=== PATIENT | female | born 1940 | race Caucasian/White ===

== ENCOUNTER 2017-01-31 15:10 | Emergency (ER) | payer BC ==
--- NOTE | 2017-01-31 17:55 | PDOC ---
History of Present Illness - General Chief Complaint: Diarrhea Stated Complaint: DIARRHEA & ABDOMINAL PAIN Time Seen by Provider: 01/31/17 17:01 History Source: Patient, Family Exam Limitations: No Limitations - History of Present Illness Initial Comments: 01/31/17 17:52 Chief complaint: Diarrhea, now resolved I went to see the patient, and she states she had some diarrhea today. She states her symptoms have fully resolved. She had abdominal cramps earlier today which have now gone away. She asked me to cancel her visit. She does not want to be seen or examined. Patient left the ED feeling well, stating she did not feel she needed to be seen and that she would return if she develops any symptoms. No examination or further evaluation performed per patient request. Past History - Past Medical History Allergies/Adverse Reactions: Allergies Allergy/AdvReac Type Severity Reaction Status Date / Time ciprofloxacin [From Cipro] Allergy Severe Rash Verified 04/28/16 06:55 ciprofloxacin HCl Allergy Severe Rash Verified 04/28/16 06:55 [From Cipro] midazolam HCl [From Versed] AdvReac Severe Nausea Verified 04/28/16 06:55 Home Medications: Ambulatory Orders Aspirin [ASA -] 81 mg PO DAILY 04/28/16 Atorvastatin Ca [Lipitor] 10 mg PO HS 04/28/16 Levothyroxine [Synthroid -] 75 mcg PO DAILY 04/28/16 Ondansetron [Zofran Odt -] 4 mg GT TID PRN #14 tab.rapdis 04/28/16 Anemia: No Asthma: Yes Cancer: No Cardiac Disorders: Yes ([place] 1995 "NO HEART DAMAGE") CVA: No COPD: No CHF: No Dementia: No Diabetes: No GI Disorders: Yes (GERD) Disorders: No HTN: No Hypercholesterolemia: Yes Kidney Stones: Yes Liver Disease: (LFT'S ELEVATED DUE TO CRESTOR (PT HOSPITALIZED 12/2011) CRESTOR STOPPED) Suicide Attempt (Hx): No Seizures: No Thyroid Disease: Yes (HYPOTHROIDISM) - Surgical History Abdominal Surgery: Yes Appendectomy: No Cardiac Surgery: Yes (ANGIOPLASTY 1997) Cholecystectomy: Yes () Lung Surgery: No Neurologic Surgery: No Orthopedic Surgery: No - Immunization History Td Vaccination: (UNKNOWN) - Psycho/Social/Smoking Cessation Hx Anxiety: No Suicidal Ideation: No Smoking Status: Yes Smoking History: Former smoker Years of Tobacco Use: 50 Have you smoked in the past 12 months: No Number of Cigarettes Smoked Daily: 0 If you are a former smoker, when did you quit?: 20 YEARS Hx Alcohol Use: No Drug/Substance Use Hx: No Substance Use Type: None Hx Substance Use Treatment: No *DC/Admit/Observation/Transfer Diagnosis at time of Disposition: Care refused by patient Abdominal pain Qualifiers: Abdominal location: unspecified location Qualified Code(s): R10.9 - Unspecified abdominal pain - Discharge Dispostion Disposition: LEFT BEFORE [facility] MOHAMUD Condition at time of disposition: Good
== END 2017-01-31 17:05 | disposition left against medical advice (07) ==
LOC: FER 15:10
DX: Z53.20 Procedure and treatment not carried out because of patient's decision for unspecified reasons (principal); R10.9 Unspecified abdominal pain; K21.9 Gastro-esophageal reflux disease without esophagitis; J45.909 Unspecified asthma, uncomplicated; E78.00 Pure hypercholesterolemia, unspecified; E03.9 Hypothyroidism, unspecified; R79.9 Abnormal finding of blood chemistry, unspecified; Z87.891 Personal history of nicotine dependence
CPT/HCPCS: 99281-25

== ENCOUNTER 2017-03-24 07:32 | Emergency (ER) | payer BC ==
[2017-03-24] MEDS ORDERED: SODIUM CHLORIDE 0.9% 1000 ML INFUS.BAG IV ONE (07:39)
[2017-03-24] MEDS ORDERED: ONDANSETRON 4 MG/2 ML VIAL IVPUSH ONE (07:39)
[2017-03-24] MEDS ORDERED: ONDANSETRON 4 MG/2 ML VIAL ONE (07:41)
--- NOTE | 2017-03-24 07:41 | PDOC ---
History of Present Illness - General Chief Complaint: Weakness Stated Complaint: NAUSEA,DIARRHEA Time Seen by Provider: 03/24/17 07:36 History Source: Patient Exam Limitations: No Limitations - History of Present Illness Initial Comments: 03/24/17 07:40 76 yo F with h/o HTN CAD here wtih c/o n/v/d. pt states has happened to her several months ago but was never seen. no new foods. no recent abx or travel. no mod fators. no sick contacts. c/o feeling generalized weakness. no fever does report chills. no vomiting but severe nausea. denies vertigo or lightheadedness. has had 3 water bm's today. nonbloody. took immodium mild improvement. has had cough for 2 months. has h/o allergies, and wheezin in past uses proair and advair at home. 03/24/17 07:45 Past History - Past Medical History Allergies/Adverse Reactions: Allergies Allergy/AdvReac Type Severity Reaction Status Date / Time ciprofloxacin [From Cipro] Allergy Severe Rash Verified 03/24/17 07:35 ciprofloxacin HCl Allergy Severe Rash Verified 03/24/17 07:35 [From Cipro] midazolam HCl [From Versed] AdvReac Severe Nausea Verified 03/24/17 07:35 Home Medications: Ambulatory Orders Aspirin [ASA -] 81 mg PO DAILY 04/28/16 Atorvastatin Ca [Lipitor] 10 mg PO HS 04/28/16 Levothyroxine [Synthroid -] 75 mcg PO DAILY 04/28/16 Albuterol 0.083% Nebulizer Rukhsana [Ventolin 0.083% Nebulizer Soln -] 1 amp NEB Q4H PRN #1 box 03/24/17 Albuterol Sulfate [Proair Respiclick] 90 mcg IH DAILY 03/24/17 Anemia: No Asthma: Yes Cancer: No Cardiac Disorders: Yes ([place] 1995 "NO HEART DAMAGE") CVA: No COPD: No CHF: No Dementia: No Diabetes: No GI Disorders: Yes (GERD) Disorders: No HTN: No Hypercholesterolemia: Yes Kidney Stones: Yes Liver Disease: (LFT'S ELEVATED DUE TO CRESTOR (PT HOSPITALIZED 12/2011) CRESTOR STOPPED) Suicide Attempt (Hx): No Seizures: No Thyroid Disease: Yes (HYPOTHROIDISM) - Surgical History Abdominal Surgery: Yes Appendectomy: No Cardiac Surgery: Yes (ANGIOPLASTY 1997) Cholecystectomy: Yes () Lung Surgery: No Neurologic Surgery: No Orthopedic Surgery: No - Immunization History Td Vaccination: (UNKNOWN) - Psycho/Social/Smoking Cessation Hx Anxiety: No Suicidal Ideation: No Smoking Status: Yes Smoking History: Former smoker Years of Tobacco Use: 50 Have you smoked in the past 12 months: No Number of Cigarettes Smoked Daily: 0 If you are a former smoker, when did you quit?: 20 YEARS Hx Alcohol Use: No Drug/Substance Use Hx: No Substance Use Type: None Hx Substance Use Treatment: No Review of Systems - Review of Systems Constitutional: Yes: Chills. No: Diaphoresis, Weight Stable Respiratory: Yes: Other (cough). No: Orthopnea, Productive cough Cardiac (ROS): No: Chest Pain, Edema, Irregular Heart Rate ABD/GI: Yes: Diarrhea, Nausea. No: Vomiting : No: Burning, Dysuria Neurological: Yes: Weakness. No: Numbness All Other Systems: Reviewed and Negative *Physical Exam - Physical Exam General Appearance: Yes: Nourished, Appropriately Dressed Neck: positive: Trachea midline Respiratory/Chest: positive: Normal Breath Sounds, Wheezing (faint right lung base with expiratory wheezing). negative: Chest Tender, Respiratory Distress Cardiovascular: positive: Regular Rhythm, Regular Rate, S1, S2. negative: Edema , Murmur Gastrointestinal/Abdominal: positive: Normal Bowel Sounds, Flat, Soft. negative : Tender Musculoskeletal: negative: CVA Tenderness Extremity: positive: Normal Capillary Refill Integumentary: positive: Normal Color, Dry, Warm Neurologic: positive: Fully Oriented, Alert, Normal Mood/Affect, Motor Strength 5/5 ED Treatment Course - LABORATORY CBC & Chemistry Diagram: 03/24/17 07:40 03/24/17 07:40 Medical Decision Making - Medical Decision Making 03/24/17 07:48 76 yo F with h/o CAD, HTN HLD, asthma here wtih cough x 2 months, no 24 hours nausea and diarreha. nontender exam. denies vertigo. differential pna, mass, viral ge, food intolerance. electrolyte abnormality, pancreatitis, dehydration. plan labs lipase cxr antiemetics ivf. reassess. 03/24/17 09:01 pt electrolytes normal. noted to elevated elevated wbc 20. pt states she had elevated wbc onm recent blood work as well. afebrile. feeling improved after medication fluid and neb. cxr normal. will leave message for dr haddad [phone] to discuss plan of care and followup. pt refereed to GI for outpt followup. tolerating po dc home. *DC/Admit/Observation/Transfer Diagnosis at time of Disposition: Gastroenteritis - Discharge Dispostion Disposition: HOME Condition at time of disposition: Stable Admit: No - Prescriptions Prescriptions: Albuterol 0.083% Nebulizer Rukhsana [Ventolin 0.083% Nebulizer Soln -] 1 amp NEB Q4H PRN #1 box PRN Reason: Wheezing - Referrals Referrals: Andrea Sheldon MD [Primary Care Provider] - Juan Sanchez MD [Staff Physician] - - Patient Instructions Printed Discharge Instructions: Viral Gastroenteritis, Asthma -- Adult Additional Instructions: you should take bland foods and plenty of liquids. follow up with a diabetes trainer. see referral number for Dr Sanchez ( gatroenterologist) or you can gain a referral from your primary doctor. you should follow up with DR. Lucio within one week. call to schedule. return for any fever, persistant vomiting or any concerns. your white blood cell count was elevated today at 20. you will need to have it repeated in 1 - 2 weeks to see that it comes down when you are feeling better. see copies of labs attached, and bring to your doctor at your next appointment. use albuterol inhaled every 4 hours as needed for wheezing.
[2017-03-24 07:54] LABS: MCH 28.8 pg (25.7-33.7); MEAN CELL VOLUME 84.6 fl (80-96); MEAN PLT VOLUME 7.7 fl (7.5-11.1); PLATELET COUNT 304 K/MM3 (134-434); RDW 12.8 % (11.6-15.6); WHITE BLOOD COUNT 20.7 K/mm3 (4.0-10.8)
[2017-03-24 07:56] VITALS: BP 109/74; PULSE 88; BMI 20.5
[2017-03-24 07:59] VITALS: TEMP 98.7
[2017-03-24] MEDS ORDERED: ALBUTEROL SO4 2.5/IPRATROPIUM 0.5 INH SOL 3 ML VIAL.NEB. NEB ONE ×2 (08:08→08:09)
[2017-03-24 08:45] LABS: ALK PHOS 81 U/L (32-92); ANION GAP 9 (8-16); BILIRUBIN,TOTAL 0.9 mg/dl (0.2-1.0); CALCIUM 9.4 mg/dl (8.4-10.2); CO2 24 mmol/L (22-28); CREATININE 0.7 mg/dl (0.6-1.3); GLUCOSE,RANDOM 133 mg/dl (74-106); SGOT/AST 30 U/L (10-42); SGPT/ALT 21 U/L (10-40); TOT PROT 6.1 g/dl (6.4-8.3)
[2017-03-24] MEDS ORDERED: FAMOTIDINE 20 MG/50 ML IVPB 50 ML IVPB ONE ×2 (09:00→09:01)
[2017-03-24] MEDS ORDERED: MAG HYDROX/AL HYDROX/SIMETH 30 ML UNIT-DOSE CUP PO ONE (09:00)
[2017-03-24] MEDS ORDERED: MAG HYDROX/AL HYDROX/SIMETH 30 ML UNIT-DOSE CUP ONE (09:01)
[2017-03-24 09:22] LABS: PLATELET ESTIMATE ADEQUATE (NORMAL)
== END 2017-03-24 09:34 | disposition home or self-care (01) ==
LOC: FER 07:32
PROC: 3E0F7GC Introduction of Other Therapeutic Substance into Respiratory Tract, Via Natural or Artificial Opening (ICD-10-PCS; principal; 2017-03-24)
PROC: 3E033GC Introduction of Other Therapeutic Substance into Peripheral Vein, Percutaneous Approach (ICD-10-PCS; 2017-03-24)
PROC: 3E0337Z Introduction of Electrolytic and Water Balance Substance into Peripheral Vein, Percutaneous Approach (ICD-10-PCS; 2017-03-24)
DX: K52.9 Noninfective gastroenteritis and colitis, unspecified (principal); I10 Essential (primary) hypertension; E78.5 Hyperlipidemia, unspecified; I25.10 Atherosclerotic heart disease of native coronary artery without angina pectoris
CPT/HCPCS: 36415; 71020-TC; 80053; 83690; 85025; 94640; 96365; 96375; 99282-25

== ENCOUNTER 2017-03-24 10:26 | Emergency (ER) | payer BC ==
[2017-03-24] MEDS ORDERED: ONDANSETRON 4 MG/2 ML VIAL IVPUSH ONE (10:37)
[2017-03-24] MEDS ORDERED: ONDANSETRON 4 MG/2 ML VIAL ONE ×2 (10:40→10:48)
[2017-03-24 10:59] VITALS: BP 105/57; PULSE 66; TEMP 98.6; BMI 20.5
[2017-03-24 13:38] LABS: PH,URINE 5.5 (4.5-8); URINE APPEARANCE Clear; URINE BILIRUBIN Negative (NEGATIVE); URINE GLUCOSE (UA) Negative (NEGATIVE); URINE KETONE Negative (NEGATIVE); URINE LEUK ESTERASE Negative (NEGATIVE); URINE NITRITE Negative (NEGATIVE); URINE PROTEIN Negative (NEGATIVE); URINE UROBILINOGEN 0.2 (0.2-1.0)
[2017-03-24 13:39] LABS: URINE BLOOD Trace-lysed (NEGATIVE); URINE COLOR YELLOW
[2017-03-24 13:41] LABS: URINE RBC 0-3 /hpf (0-3); URINE WBC 0-3 (3-5)
[2017-03-24 13:42] LABS: URINE BACTERIA FEW /hpf (NEGATIVE)
--- NOTE | 2017-03-24 15:02 | PDOC ---
History of Present Illness - General Chief Complaint: Nausea Stated Complaint: NAUSEA Time Seen by Provider: 03/24/17 10:34 History Source: Patient Exam Limitations: No Limitations - History of Present Illness Initial Comments: 03/24/17 14:57 76 yo F with h/o HTN asthma , here with c/o persistant nausea and loose stool mild abd cramping. pt was seen earlier today by myself. evaluated with cbc lytes and lipase which were normal. given iv hydration, zofran and felt great req to be dc. now returning with lower abd cramping which returned when she got home. no vomiting. no fever. no urinary comlaints. h/o cholecystectomy. no sick contacts. no recent abx. no recent travel. all loose watery stool nonbloody. 03/24/17 14:59 Past History - Past Medical History Allergies/Adverse Reactions: Allergies Allergy/AdvReac Type Severity Reaction Status Date / Time ciprofloxacin [From Cipro] Allergy Severe Rash Verified 03/24/17 10:27 ciprofloxacin HCl Allergy Severe Rash Verified 03/24/17 10:27 [From Cipro] midazolam HCl [From Versed] AdvReac Severe Nausea Verified 03/24/17 10:27 Home Medications: Ambulatory Orders Aspirin [ASA -] 81 mg PO DAILY 04/28/16 Atorvastatin Ca [Lipitor] 10 mg PO HS 04/28/16 Levothyroxine [Synthroid -] 75 mcg PO DAILY 04/28/16 Albuterol 0.083% Nebulizer Rukhsana [Ventolin 0.083% Nebulizer Soln -] 1 amp NEB Q4H PRN #1 box 03/24/17 Albuterol Sulfate [Proair Respiclick] 90 mcg IH DAILY 03/24/17 Ondansetron [Zofran *Odt*] 8 mg SL TID PRN #10 od.tablet 03/24/17 Anemia: No Asthma: Yes Cancer: No Cardiac Disorders: Yes ([place] 1995 "NO HEART DAMAGE") CVA: No COPD: No CHF: No Dementia: No Diabetes: No GI Disorders: Yes (GERD) Disorders: No HTN: No Hypercholesterolemia: Yes Kidney Stones: Yes Liver Disease: (LFT'S ELEVATED DUE TO CRESTOR (PT HOSPITALIZED 12/2011) CRESTOR STOPPED) Suicide Attempt (Hx): No Seizures: No Thyroid Disease: Yes (HYPOTHROIDISM) - Surgical History Abdominal Surgery: Yes Appendectomy: No Cardiac Surgery: Yes (ANGIOPLASTY 1997) Cholecystectomy: Yes () Lung Surgery: No Neurologic Surgery: No Orthopedic Surgery: No - Immunization History Td Vaccination: (UNKNOWN) - Psycho/Social/Smoking Cessation Hx Anxiety: No Suicidal Ideation: No Smoking Status: Yes Smoking History: Former smoker Years of Tobacco Use: 50 Have you smoked in the past 12 months: No Number of Cigarettes Smoked Daily: 0 If you are a former smoker, when did you quit?: 20 YEARS Information on smoking cessation initiated: No Hx Alcohol Use: No Drug/Substance Use Hx: No Substance Use Type: None Hx Substance Use Treatment: No Review of Systems - Review of Systems Constitutional: No: Chills, Diaphoresis, Fever HEENTM: No: Blurred Vision Respiratory: No: Cough, Orthopnea Cardiac (ROS): No: Chest Pain, Edema ABD/GI: Yes: Diarrhea, Nausea, Indigestion, Abdominal cramping Musculoskeletal: No: Back Pain, Gout, Joint Pain Integumentary: No: Bruising, Change in Color All Other Systems: Reviewed and Negative *Physical Exam - Vital Signs Last Vital Signs Temp Pulse Resp BP Pulse Ox 98.6 F 66 20 105/57 92 L 03/24/17 10:27 03/24/17 10:27 03/24/17 10:27 03/24/17 10:27 03/24/17 10:27 - Physical Exam General Appearance: Yes: Nourished, Appropriately Dressed Neck: positive: Trachea midline Respiratory/Chest: positive: Lungs Clear, Normal Breath Sounds. negative: Chest Tender Cardiovascular: positive: Regular Rhythm, Regular Rate, S1, S2 Gastrointestinal/Abdominal: positive: Normal Bowel Sounds, Flat, Soft. negative : Tender Musculoskeletal: positive: Normal Inspection. negative: CVA Tenderness Extremity: positive: Normal Capillary Refill Integumentary: positive: Normal Color, Dry, Warm ED Treatment Course - ADDITIONAL ORDERS Additional order review: Laboratory Results 03/24/17 13:22 Urine Color Yellow Urine Appearance Clear Urine pH 5.5 Ur Specific [place] <= 1.005 Urine Protein Negative Urine Glucose (UA) Negative Urine Ketones Negative Urine Blood Trace-lysed H Urine Nitrite Negative Urine Bilirubin Negative Urine Urobilinogen 0.2 Ur Leukocyte Esterase Negative Urine RBC 0-3 Urine WBC 0-3 Ur Epithelial Cells Few Urine Bacteria Few - RADIOLOGY Radiology Studies Ordered: Category Date Time Status ABDOMEN & PELVIS CT WITH CONTR [CT] Stat CT Scan 03/24/17 10:36 Completed - Medications Given in the ED: ED Medications Discontinued Medications Generic Name Dose Route Start Last Admin Trade Name Freq PRN Reason Stop Dose Admin Ondansetron HCl 4 mg 03/24/17 10:37 03/24/17 10:55 Zofran Injection IVPUSH 03/24/17 10:38 4 mg ONCE ONE Administration Medical Decision Making - Medical Decision Making 03/24/17 15:00 76 yo F with nausea and diarreha, here for repeat visit. last eval earlier today noted wbc 20 pt states h/o leukocytosis on last routine blood work by her doctor. will obtain ct r/o colitis, or diverticulitis. 03/24/17 15:[address] negative. pt requesting to leave feels better. given rx for zofran. given referral fir gi and new internest per her request. *DC/Admit/Observation/Transfer Diagnosis at time of Disposition: Colitis - Discharge Dispostion Disposition: HOME Condition at time of disposition: Improved - Prescriptions Prescriptions: Ondansetron [Zofran *Odt*] 8 mg SL TID PRN #10 od.tablet PRN Reason: Nausea - Referrals Referrals: Carmina Schmidt MD [Staff Physician] - Juan Sanchez MD [Staff Physician] - - Patient Instructions Printed Discharge Instructions: Viral Gastroenteritis Additional Instructions: you can take zofran 8 mg every 6 hours as needed for nausea. return for severe or worsening pain, vomiting, fever or any concerns. your ct scan today is unremarkable. see copy of report attached. take all copies of blood work and ct scan to your doctor at your followup. you should followup with your primary doctor withone one week. you should also see a diorama model maker. see referral information for Dr Sanchez ( GI ) call number to schedule.
== END 2017-03-24 15:12 | disposition home or self-care (01) ==
LOC: FER 10:26
PROC: 3E033GC Introduction of Other Therapeutic Substance into Peripheral Vein, Percutaneous Approach (ICD-10-PCS; principal; 2017-03-24)
DX: K52.9 Noninfective gastroenteritis and colitis, unspecified (principal)
CPT/HCPCS: 74177-TC; 81003; 81015; 96374; 99282-25

== ENCOUNTER 2017-07-29 18:10 | Emergency (ER) | payer BC ==
[2017-07-29 18:20] VITALS: BP 140/85; PULSE 64; TEMP 98.1; BMI 23.6
--- NOTE | 2017-07-29 18:24 | PDOC ---
History of Present Illness - General History Source: Patient Exam Limitations: No Limitations - History of Present Illness Initial Comments: 07/29/17 18:47 The patient is a year old female, with a significant past medical history of HTN , CAD, AL, and asthma on aspirin, who presents to the emergency department s/p mechanical fall with a bruise on her left elbow. Secondary to her fall she reports swelling to her left elbow. She denies trauma to her head and neck. She denies recent fevers, chills, headache or dizziness. She denies recent nausea, vomit, diarrhea or constipation. She denies recent dysuria, frequency, urgency or hematuria. She denies recent chest pain or shortness of breath. Allergies: Ciprofloxacin, Ciprofloxacin HCl, midazolam HCl . Social history: Nonsmoker. Denies EtOH use and recreational drug use. <Andrez Delacruz - Last Filed: 07/29/17 18:48> <Anuj Solorzano - Last Filed: 07/30/17 08:07> - General Chief Complaint: Injury Stated Complaint: FALL, LEFT ELBOW SWELLING Time Seen by Provider: 07/29/17 18:24 Past History <Andrez Delacruz - Last Filed: 07/29/17 18:48> - Past Medical History Anemia: No Asthma: Yes Cancer: No Cardiac Disorders: Yes ([place] 1995 "NO HEART DAMAGE") CVA: No COPD: No CHF: No Dementia: No Diabetes: No GI Disorders: Yes (GERD) Disorders: No HTN: No Hypercholesterolemia: Yes Kidney Stones: Yes Liver Disease: (LFT'S ELEVATED DUE TO CRESTOR (PT HOSPITALIZED 12/2011) CRESTOR STOPPED) Seizures: No Thyroid Disease: Yes (HYPOTHROIDISM) - Surgical History Abdominal Surgery: Yes Appendectomy: No Cardiac Surgery: Yes (ANGIOPLASTY 1997) Cholecystectomy: Yes () Lung Surgery: No Neurologic Surgery: No Orthopedic Surgery: No - Immunization History Td Vaccination: (UNKNOWN) - Suicide/Smoking/Psychosocial Hx Smoking Status: Yes Smoking History: Never smoked Years of Tobacco Use: 50 Have you smoked in the past 12 months: No Number of Cigarettes Smoked Daily: 0 If you are a former smoker, when did you quit?: 20 YEARS Information on smoking cessation initiated: No Hx Alcohol Use: No Drug/Substance Use Hx: No Substance Use Type: None Hx Substance Use Treatment: No <Anuj Solorzano - Last Filed: 07/30/17 08:07> - Past Medical History Allergies/Adverse Reactions: Allergies Allergy/AdvReac Type Severity Reaction Status Date / Time ciprofloxacin [From Cipro] Allergy Severe Rash Verified 07/29/17 18:11 ciprofloxacin HCl Allergy Severe Rash Verified 07/29/17 18:11 [From Cipro] midazolam HCl [From Versed] AdvReac Severe Nausea Verified 07/29/17 18:11 Home Medications: Ambulatory Orders Aspirin [ASA -] 81 mg PO DAILY 04/28/16 Atorvastatin Ca [Lipitor] 10 mg PO HS 04/28/16 Levothyroxine [Synthroid -] 75 mcg PO DAILY 04/28/16 Albuterol 0.083% Nebulizer Rukhsana [Ventolin 0.083% Nebulizer Soln -] 1 amp NEB Q4H PRN #1 box 03/24/17 Albuterol Sulfate [Proair Respiclick] 90 mcg IH DAILY 03/24/17 Review of Systems - Review of Systems Able to Perform ROS?: Yes Comments:: 07/29/17 18:48 CONSTITUTIONAL: Absent: fever, no chills, no fatigue EYES: Absent: visual changes ENT: Absent: ear pain, no sore throat CARDIOVASCULAR: Absent: chest pain, no palpitations RESPIRATORY: Absent: cough, no SOB GI: Absent: abdominal pain, no nausea, no vomiting, no constipation, no diarrhea GENITOURINARY: Absent: dysuria, no frequency, no hematuria MUSKULOSKELETAL: Absent: back pain, no arthralgia, no myalgia EXTREMITIES: Present: +Bruise and swelling of left elbow. SKIN: Absent: rash NEURO: Absent: headache All Other Systems: Reviewed and Negative <Andrez Delacruz - Last Filed: 07/29/17 18:48> *Physical Exam - Vital Signs Last Vital Signs Temp Pulse Resp BP Pulse Ox 98.1 F 64 20 140/85 95 07/29/17 18:11 07/29/17 18:11 07/29/17 18:11 07/29/17 18:11 07/29/17 18:11 <Andrez Delacruz - Last Filed: 07/29/17 18:48> - Vital Signs Last Vital Signs Temp Pulse Resp BP Pulse Ox 98.1 F 64 20 140/85 95 07/29/17 18:11 07/29/17 18:11 07/29/17 18:11 07/29/17 18:11 07/29/17 18:11 <Anuj Solorzano - Last Filed: 07/30/17 08:07> Medical Decision Making - Medical Decision Making 07/29/17 18:45 Patient tripped and fell on the steps, injuring her left elbow. No head or neck injury. No injury to the chest abdomen spine pelvis or other extremities. No loss of consciousness. Examination of the head and neck normal. Left elbow has a significant contusion and hematoma over the medial aspect of the olecranon process. However, there is no deformity suggestive of a fracture or dislocation. There is no effusion. There is full range of motion in flexion, extension, supination, and pronation. There are no distal sensory or motor deficits, and pulses are full. Probable contusion of the elbow, rule out fracture X-ray and further orthopedic treatment depending on results. X-ray is negative for fracture. There is no clinical sign of fracture as well. Symptomatic treatment with Jacky for compression, sling for rest, ice, Tylenol. Recheck orthopedist if pain or swelling persists. <Anuj Solorzano - Last Filed: 07/30/17 08:07> *DC/Admit/Observation/Transfer - Attestations Scribe Attestion: 07/29/17 18:48 Documentation prepared by Andrez Delacruz, acting as medical customer service representative for Anuj Scherer MD. <Andrez Delacruz - Last Filed: 07/29/17 18:48> - Discharge Dispostion Admit: No <Anuj Solorzano - Last Filed: 07/30/17 08:07> Diagnosis at time of Disposition: Contusion of left elbow Qualifiers: Encounter type: initial encounter Qualified Code(s): S50.02XA - Contusion of left elbow, initial encounter - Discharge Dispostion Disposition: HOME Condition at time of disposition: Improved - Referrals Referrals: Brian Barnhart MD [Staff Physician] - 1 week - Patient Instructions Printed Discharge Instructions: How to Use a Sling, Contusion Additional Instructions: Rest, ice, elevate, Tylenol for pain. Use the sling for 2-3 days, then begin gentle range of motion exercises and stretching See orthopedist if pain persists or other symptoms develop for recheck and further evaluation. - Post Discharge Activity Forms/Work/School Notes: Back to Work
== END 2017-07-29 19:08 | disposition home or self-care (01) ==
LOC: FER 18:10
DX: S50.02XA Contusion of left elbow, initial encounter (principal); W18.39XA Other fall on same level, initial encounter; Y93.89 Activity, other specified; Y92.9 Unspecified place or not applicable; I10 Essential (primary) hypertension; I25.10 Atherosclerotic heart disease of native coronary artery without angina pectoris; I25.2 Old myocardial infarction; J45.909 Unspecified asthma, uncomplicated; Z79.82 Long term (current) use of aspirin
CPT/HCPCS: 73070-TC-LT; 99282-25

== ENCOUNTER 2017-11-13 02:05 | Emergency (ER) | payer BC ==
[2017-11-13 02:16] VITALS: BP 129/81; PULSE 70; TEMP 97.7; BMI 22.8
--- NOTE | 2017-11-13 02:22 | PDOC ---
History of Present Illness - General Chief Complaint: Sore Throat Stated Complaint: SORE THROAT Time Seen by Provider: 11/13/17 02:19 History Source: Patient Exam Limitations: No Limitations - History of Present Illness Initial Comments: 11/13/17 02:22 This is a 77-year-old female who clinically completed with sore throat times since she woke up prior to coming in. Patient said she had a little bit of a sore throat when she went to bed otherwise denies any fever, chills, nausea, vomiting diarrhea. Patient denies any medical complaints. Patient said it is difficult to swallow secondary to the sore throat. PAST MEDICAL HISTORY: no significant history PAST SURGICAL HISTORY: no significant history FAMILY HISTORY: no pertinant history SOCIAL HISTORY: Pt lives with family and is employed. MEDICATIONS: reviewed ALLERGIES: As per nursing notes Review of Systems General: No fevers or chills, no weakness, no weight loss HEENT: No change in vision. + sore throat,. No ear pain CardioVascular: No chest pain or shortness of breath Respiratory:No cough, or wheezing. Gastrointestinal: no nausea, vomitting, diarrhea or constipation, No rectal bleeding Genitourinary: No dysuria, hematuria, or frequency Musculoskeletal: No joint or muscle pain or swelling Neurologic: No headache, vertigo, dizziness or loss of consciousness Psychiatric: nor depression Skin: No rashes or easy bruising Endocrine: no increased thirst or abnormal weight change Allergic: no skin or latex allergy All other systems reviewed and normal GENERAL: The patient is awake, alert, and fully oriented, in no acute distress. HEAD: Normal with no signs of trauma. THROAT: There is some mild erythema of the posterior oropharynx, there is no exudate. There is no submandibular lymph adenopathy. Neck is supple. EYES: Pupils equal, round and reactive to light, extraocular movements intact, sclera anicteric, conjunctiva clear. EXTREMITIES: Normal range of motion, no edema. NEUROLOGICAL: Normal speech, normal gait. grossly intact PSYCH: Normal mood, normal affect. SKIN: Warm, Dry, normal turgor, no rashes or lesions noted. Assessment and plan: This 77-year-old female came in with a sore throat. Patient had a rapid strep was negative. Patient discharged home will follow-up with her primary care doctor Past History - Past Medical History Allergies/Adverse Reactions: Allergies Allergy/AdvReac Type Severity Reaction Status Date / Time ciprofloxacin [From Cipro] Allergy Severe Rash Verified 07/29/17 18:11 ciprofloxacin HCl Allergy Severe Rash Verified 07/29/17 18:11 [From Cipro] midazolam HCl [From Versed] AdvReac Severe Nausea Verified 07/29/17 18:11 Home Medications: Ambulatory Orders Aspirin [ASA -] 81 mg PO DAILY 04/28/16 Atorvastatin Ca [Lipitor] 10 mg PO HS 04/28/16 Levothyroxine [Synthroid -] 75 mcg PO DAILY 04/28/16 Albuterol 0.083% Nebulizer Rukhsana [Ventolin 0.083% Nebulizer Soln -] 1 amp NEB Q4H PRN #1 box 03/24/17 Albuterol Sulfate [Proair Respiclick] 90 mcg IH DAILY 03/24/17 Anemia: No Asthma: Yes Cancer: No Cardiac Disorders: Yes (CT 1995 "NO HEART DAMAGE") CVA: No COPD: No CHF: No Dementia: No Diabetes: No GI Disorders: Yes (GERD) Disorders: No HTN: No Hypercholesterolemia: Yes Kidney Stones: Yes Liver Disease: (LFT'S ELEVATED DUE TO CRESTOR (PT HOSPITALIZED 12/2011) CRESTOR STOPPED) Seizures: No Thyroid Disease: Yes (HYPOTHROIDISM) - Surgical History Abdominal Surgery: Yes Appendectomy: No Cardiac Surgery: Yes (ANGIOPLASTY 1997) Cholecystectomy: Yes () Lung Surgery: No Neurologic Surgery: No Orthopedic Surgery: No - Immunization History Td Vaccination: (UNKNOWN) - Suicide/Smoking/Psychosocial Hx Smoking Status: Yes Smoking History: Never smoked Years of Tobacco Use: 50 Have you smoked in the past 12 months: No Number of Cigarettes Smoked Daily: 0 If you are a former smoker, when did you quit?: 20 YEARS Hx Alcohol Use: No Drug/Substance Use Hx: No Substance Use Type: None Hx Substance Use Treatment: No *Physical Exam - Vital Signs Last Vital Signs Temp Pulse Resp BP Pulse Ox 97.7 F 70 16 129/81 97 11/13/17 02:15 11/13/17 02:15 11/13/17 02:15 11/13/17 02:15 11/13/17 02:15 *DC/Admit/Observation/Transfer Diagnosis at time of Disposition: Pharyngitis - Discharge Dispostion Disposition: HOME Condition at time of disposition: Stable Admit: No - Referrals Referrals: Fader,Tom M, MD [Primary Care Provider] - - Patient Instructions Additional Instructions: Tylenol or Motrin as needed for pain. Return to the emergency department immediately with ANY new, persistent or worsening symptoms. Continue any medications as previously prescribed by your physician. You should follow up with your primary doctor as soon as possible regarding today's emergency department visit. . Please make sure your doctor reviews the results of your emergency evaluation. Thank you for coming to the Emergency Department today for your care. It was a pleasure to see you today. Please note that your evaluation is INCOMPLETE until you follow-up with your doctor. - Post Discharge Activity
== END 2017-11-13 03:46 | disposition home or self-care (01) ==
LOC: FER 02:05
DX: J02.9 Acute pharyngitis, unspecified (principal); Z87.891 Personal history of nicotine dependence; J45.909 Unspecified asthma, uncomplicated; I25.2 Old myocardial infarction; K21.9 Gastro-esophageal reflux disease without esophagitis; E03.9 Hypothyroidism, unspecified; E78.00 Pure hypercholesterolemia, unspecified; Z87.442 Personal history of urinary calculi
CPT/HCPCS: 87070; 87430; 99281-25

== ENCOUNTER 2017-12-23 18:17 | Emergency (ER) | payer BC ==
--- NOTE | 2017-12-23 18:36 | PDOC ---
History of Present Illness - History of Present Illness Initial Comments: 12/23/17 18:49 Physical exam: Alert oriented well-developed well-nourished no acute distress cheerful and cooperative. The patient is fully ambulatory without any pain or disturbance of gait. She can walk vigorously without any discomfort Right foot: There is significant swelling over the dorsum of the foot, distally. Primarily in the region of the second and third metatarsal heads. There is a mass that is palpable, minimally tender, but it blanches with pressure. It does not, however, appear to be fluctuant. There is minimal erythema but there is ecchymoses at the base of all 5 toes. There is no fifth metatarsal swelling or tenderness, no tenderness or deformity of the malleoli. However, there is mild swelling and edema below the lateral malleolus. No instability. Pulses full. No distal sensory or motor deficits. No posterior calf swelling or tenderness. No edema of the calf. <Anuj Solorzano - Last Filed: 12/23/17 18:49> - General History Source: Patient Exam Limitations: No Limitations - History of Present Illness Initial Comments: 12/23/17 18:54 The patient is a 77 year old female with a significant PMH of GERD, hypercholesterolemia, kidney stones, hypothyroidism, asthma, hypertension, CAD, [place], angioplasty(1997), and cholecystectomy(1979) who presents to the emergency department with a right foot injury for 6 days. The patient reports that she noticed swelling, redness and bruising to er right foot on thursday. She denies any pain , injury to site or difficulty ambulating. She denies any pain in her ankle calf or knee. 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 She denies any other symptoms. She denies and numbness, weakness or tinglilng sensation. She denies any fever, chills, nausea, vomit, diarrhea, constipation or urinary symptoms. She denies .chest pain, shortness of breath, headache and dizziness. The patient denies any other complaints. It is noted that the patient is a former smoker. She denies and drugs or alcohol. <Radha Cortez - Last Filed: 12/23/17 18:55> - General Chief Complaint: Injury Stated Complaint: RIGHT FOOT INJURY Time Seen by Provider: 12/23/17 18:35 Past History - Past Medical History Anemia: No Asthma: Yes Cancer: No Cardiac Disorders: Yes ([place] 1995 "NO HEART DAMAGE") CVA: No COPD: No CHF: No Dementia: No Diabetes: No GI Disorders: Yes (GERD) Disorders: No HTN: No Hypercholesterolemia: Yes Kidney Stones: Yes Liver Disease: (LFT'S ELEVATED DUE TO CRESTOR (PT HOSPITALIZED 12/2011) CRESTOR STOPPED) Seizures: No Thyroid Disease: Yes (HYPOTHROIDISM) - Surgical History Abdominal Surgery: Yes Appendectomy: No Cardiac Surgery: Yes (ANGIOPLASTY 1997) Cholecystectomy: Yes () Lung Surgery: No Neurologic Surgery: No Orthopedic Surgery: No - Immunization History Td Vaccination: (UNKNOWN) - Suicide/Smoking/Psychosocial Hx Smoking Status: Yes Smoking History: Never smoked Years of Tobacco Use: 50 Have you smoked in the past 12 months: No Number of Cigarettes Smoked Daily: 0 If you are a former smoker, when did you quit?: 20 YEARS Hx Alcohol Use: No Drug/Substance Use Hx: No Substance Use Type: None Hx Substance Use Treatment: No <Anuj Solozrano - Last Filed: 12/23/17 18:49> <Radha Cortez - Last Filed: 12/23/17 18:55> - Past Medical History Allergies/Adverse Reactions: Allergies Allergy/AdvReac Type Severity Reaction Status Date / Time ciprofloxacin [From Cipro] Allergy Severe Rash Verified 12/23/17 18:20 ciprofloxacin HCl Allergy Severe Rash Verified 12/23/17 18:20 [From Cipro] midazolam HCl [From Versed] AdvReac Severe Nausea Verified 12/23/17 18:20 Home Medications: Ambulatory Orders Aspirin [ASA -] 81 mg PO Q2D 04/28/16 Atorvastatin Ca [Lipitor] 10 mg PO HS 04/28/16 Levothyroxine [Synthroid -] 75 mcg PO DAILY 04/28/16 Albuterol 0.083% Nebulizer Rukhsana [Ventolin 0.083% Nebulizer Soln -] 1 amp NEB Q4H PRN #1 box 03/24/17 Albuterol Sulfate [Proair Respiclick] 90 mcg IH PRN 03/24/17 Fluticasone/Salmeterol [Advair 250-50 Diskus] 1 puff IN DAILY 12/23/17 Review of Systems - Review of Systems Able to Perform ROS?: Yes Comments:: 12/23/17 18:54 CONSTITUTIONAL: Absent: fever, chills, diaphoresis, generalized weakness, malaise, loss of appetite HEENT: Absent: rhinorrhea, nasal congestion, throat pain, throat swelling, difficulty swallowing, mouth swelling, ear pain, eye pain, visual Changes CARDIOVASCULAR: Absent: chest pain, syncope, palpitations, irregular heart rate, lightheadedness , peripheral edema RESPIRATORY: Absent: cough, shortness of breath, dyspnea with exertion, orthopnea, wheezing, stridor, hemoptysis GASTROINTESTINAL: Absent: abdominal pain, abdominal distension, nausea, vomiting, diarrhea, constipation, melena, hematochezia GENITOURINARY: Absent: dysuria, frequency, urgency, hesitancy, hematuria, flank pain, genital pain MUSCULOSKELETAL: (+)right foot swelling and bruising Absent: myalgia, arthralgia, joint swelling SKIN: Absent: rash, itching, pallor HEMATOLOGIC/IMMUNOLOGIC: Absent: easy bleeding, easy bruising, lymphadenopathy, frequent infections ENDOCRINE: Absent: unexplained weight gain, unexplained weight loss, heat intolerance, cold intolerance NEUROLOGIC: Absent: headache, focal weakness or paresthesias, dizziness, unsteady gait, seizure, mental status changes, bladder or bowel incontinence PSYCHIATRIC: Absent: anxiety, depression, suicidal or homicidal ideation, hallucinations. <Radha Cortez - Last Filed: 12/23/17 18:55> *Physical Exam - Vital Signs Last Vital Signs Temp Pulse Resp BP Pulse Ox 98.6 F 62 18 117/68 98 12/23/17 18:18 12/23/17 18:18 12/23/17 18:18 12/23/17 18:18 12/23/17 18:18 <Radha Cortez - Last Filed: 12/23/17 18:55> *DC/Admit/Observation/Transfer <Anuj Solorzano - Last Filed: 12/23/17 18:49> - Attestations Scribe Attestion: 12/23/17 18:55 Documentation prepared by Radha Cortez, acting as medical territory manager for Anuj Scherer MD. <Radha Cortez - Last Filed: 06/06/18 18:55> - Discharge Dispostion Condition at time of disposition: Stable
[2017-12-23 18:47] VITALS: BP 117/68; PULSE 62; TEMP 98.6; BMI 47.7
--- NOTE | 2017-12-23 19:38 | PDOC ---
*Physical Exam - Vital Signs Last Vital Signs Temp Pulse Resp BP Pulse Ox 98.6 F 62 18 117/68 98 12/23/17 18:18 12/23/17 18:18 12/23/17 18:18 12/23/17 18:18 12/23/17 18:18 Progress Note - Progress Note Progress Note: Care of this patient was transferred to me from Dr. Cummings at 1900 hrs. Evaluated this patient and asked me to follow up with the x-ray patient is to be discharged if there is no fracture and x-rays normal. X-ray does show some degenerative changes however no acute pathology Discussion with patient the patient has no pain is able to walk without difficulty however does have a swollen and ecchymosis of her foot. Patient has shoes that give hersupport and she has been on her feet for the last 2 days. Discussed with patient the importance of trying to elevate her foot get some shoes that give her better support and Jacky wrapping her foot we gave her an Jacky wrap here. Patient also takes 3 baby aspirin a day which most likely is also contributing to her swelling and ecchymosis *DC/Admit/Observation/Transfer Diagnosis at time of Disposition: Traumatic ecchymosis of right foot Qualifiers: Encounter type: initial encounter Qualified Code(s): S90.31XA - Contusion of right foot, initial encounter - Discharge Dispostion Disposition: HOME Condition at time of disposition: Stable Decision to Admit order: No - Referrals - Patient Instructions Additional Instructions: Wear the Jacky wrap especially when you are walking or working to give additional support since her shoes are not giving a very good support. Otherwise elevate the foot as much as U can and rest it. Return to the emergency department immediately with ANY new, persistent or worsening symptoms. Continue any medications as previously prescribed by your physician. You should follow up with your primary doctor as soon as possible regarding today's emergency department visit. . Please make sure your doctor reviews the results of your emergency evaluation. Thank you for coming to the Emergency Department today for your care. It was a pleasure to see you today. Please note that your evaluation is INCOMPLETE until you follow-up with your doctor. - Post Discharge Activity
== END 2017-12-23 19:46 | disposition home or self-care (01) ==
LOC: FER 18:17
DX: S90.31XA Contusion of right foot, initial encounter (principal); X58.XXXA Exposure to other specified factors, initial encounter; Y93.89 Activity, other specified; Y92.9 Unspecified place or not applicable; K21.9 Gastro-esophageal reflux disease without esophagitis; E78.00 Pure hypercholesterolemia, unspecified; E03.9 Hypothyroidism, unspecified; J45.909 Unspecified asthma, uncomplicated; I10 Essential (primary) hypertension; I25.2 Old myocardial infarction; Z87.891 Personal history of nicotine dependence
CPT/HCPCS: 73630-TC-RT-FY; 99281-25

== ENCOUNTER 2018-02-14 14:09 | Emergency (ER) | payer BC ==
--- NOTE | 2018-02-14 14:30 | PDOC ---
History of Present Illness - General Chief Complaint: Nausea Stated Complaint: NAUSEA WEAK LOOSE STOOL Time Seen by Provider: 02/14/18 14:30 History Source: Patient, Family (Eldest daughter present for interview) Exam Limitations: No Limitations - History of Present Illness Initial Comments: 77 y/o female presenting to ER complaining of weakness, dizziness, and malaise. Symptoms have been present since early December but acutely worse in the past two days. Additionally endorsing nausea, decreased appetite, decreased PO intake, loose stool, and generalized lower abdominal discomfort. Daughter present for interview reports pt has not been eating much in the past few weeks , and that her mother suffers from anxiety symptoms. Has experienced 2 falls in the past few weeks, reportedly mechanical in nature. On daily ASA. Denies fevers, chills, syncope, headache, vision changes, trouble swallowing, SOB, chest pain, symptoms, change in stool, orthopnea, paroxysmal nocturnal dyspnea, or extremity edema. H/o thyroid disease; managed medically; last TSH check was reportedly last week at PCPs office with normal results. Last TSH and T4 noted in EMR were resulted in Jul 2017 and were normal. Past History - Past Medical History Allergies/Adverse Reactions: Allergies Allergy/AdvReac Type Severity Reaction Status Date / Time ciprofloxacin HCl Allergy Severe Rash Verified 02/14/18 14:22 [From Cipro] midazolam HCl [From Versed] AdvReac Severe Nausea Verified 02/14/18 14:23 Home Medications: Ambulatory Orders Aspirin [ASA -] 81 mg PO Q2D 04/28/16 Atorvastatin Ca [Lipitor] 10 mg PO HS 04/28/16 Levothyroxine [Synthroid -] 75 mcg PO DAILY 04/28/16 Albuterol 0.083% Nebulizer Rukhsana [Ventolin 0.083% Nebulizer Soln -] 1 amp NEB Q4H PRN #1 box 03/24/17 Fluticasone/Salmeterol [Advair 250-50 Diskus] 1 puff IN DAILY 12/23/17 Enalapril Maleate 5 mg PO ONCE 01/04/18 Anemia: No Asthma: Yes Cancer: No Cardiac Disorders: Yes ([place] 1995 "NO HEART DAMAGE") CVA: No COPD: No CHF: No Dementia: No Diabetes: No GI Disorders: Yes (GERD) Disorders: No HTN: No Hypercholesterolemia: Yes Kidney Stones: Yes Liver Disease: (LFT'S ELEVATED DUE TO CRESTOR (PT HOSPITALIZED 12/2011) CRESTOR STOPPED) Seizures: No Thyroid Disease: Yes (HYPOTHROIDISM) Comment:: - GERD - Sigmoid diverticulosis without h/o diverticulitis - [place] in 1993 without residual deficits - HCL - H/o nephrolithiasis - Surgical History Abdominal Surgery: Yes Appendectomy: No Cardiac Surgery: Yes (ANGIOPLASTY 1997) Cholecystectomy: Yes () Lung Surgery: No Neurologic Surgery: No Orthopedic Surgery: No Comments:: - Cholecystectomy in the mid - Immunization History Td Vaccination: (UNKNOWN) - Suicide/Smoking/Psychosocial Hx Smoking Status: Yes Smoking History: Never smoked Years of Tobacco Use: 50 Have you smoked in the past 12 months: No Number of Cigarettes Smoked Daily: 0 If you are a former smoker, when did you quit?: 20 YEARS Hx Alcohol Use: No Drug/Substance Use Hx: No Substance Use Type: None Hx Substance Use Treatment: No Review of Systems - Review of Systems Able to Perform ROS?: Yes Is the patient limited Citizen Of [place] proficient: No Constitutional: Yes: Loss of Appetite, Malaise, Weakness. No: Chills, Diaphoresis, Fever HEENTM: No: Recent change in vision, Hearing Loss, Throat Pain Respiratory: Yes: Cough. No: Orthopnea, Shortness of Breath, Productive cough Cardiac (ROS): Yes: Lightheadedness. No: Chest Pain, Edema, Irregular Heart Rate, Palpitations, Syncope ABD/GI: Yes: Nausea, Poor Appetite, Poor Fluid Intake. No: Blood Streaked Bowels, Constipated, Diarrhea, Rectal Bleeding, Vomiting, Abdominal cramping, Tarry Stools : Yes: Frequency. No: Burning, Dysuria, Discharge, Flank Pain, Hematuria Musculoskeletal: No: Back Pain, Muscle Weakness Integumentary: Yes: Bruising. No: Rash Neurological: Yes: Dizziness. No: Headache, Numbness, Paresthesia, Weakness, Unsteady Gait Endocrine: No: Increased Thirst Hematologic/Lymphatic: No: Easy Bleeding, Easy Bruising *Physical Exam - Vital Signs 02/14/18 16:56 Vital Signs Temperature 98.5 F 02/14/18 14:11 Pulse Rate 64 02/14/18 14:11 Respiratory Rate 16 02/14/18 14:11 Blood Pressure 141/86 02/14/18 14:11 O2 Sat by Pulse Oximetry (%) 97 02/14/18 14:11 - Physical Exam Comments: Constitutional: Well-developed, well-nourished female in no acute distress. Found semi-fowlers in hospital bed. Alert and oriented x4. Answered all questions appropriately and completely. Speech was non-labored, non-pressured. HEENT: Normocephalic. No obvious external signs of trauma. Hearing grossly normal. No nasal discharge. No sinus tenderness. Oral cavity and pharynx normal. No inflammation, swelling, exudate, or lesions. Moist mucous membranes. Neck is supple, trachea is midline. No JVD. Cardiovascular: Borderline bradycardic rate and regular rhythm. No murmur, rubs , clicks, or gallops. Peripheral pulses: Radial pulses full. Respiratory: Infrequent cough. Equal chest rise and fall. Clear to auscultation bilaterally. No stridor, no wheezing, no rhonchi. Gastrointestinal: abdomen is soft, non-distended but tender in LLQ with guarding but no grimace, withdraw, or rebound. No pulsatile masses. No overlying skin lesions or obvious signs of trauma. Neuro: Alert and oriented. No focal deficits. Proximal and distal strength 5/5, retail services professional strength 5/5 - equal and symmetric. Plantar flexion and dorsiflexion 5/5. Intact sensation to all four extremities. Normal gait; ambulated without assistance into department. Psych: Affect: appropriate. Mood: normal. Skin: Warm, dry, and intact.No lesions. : No CVA tenderness. ED Treatment Course - LABORATORY CBC & Chemistry Diagram: 02/14/18 15:05 02/14/18 15:05 Medical Decision Making - Medical Decision Making *Reviewed nursing notes and prior visit documentation. 77 y/o female presenting with acutely worsening weakness, dizziness, and malaise with decreased PO intake and generalized lower abdominal discomfort. H/ o GERD and sigmoid diverticulosis. Afebrile. Vitals unremarkable, mildly hypertensive but appears to be normal trend per historical data. Concern for dehydration and malnutrition. Low suspicion for ACS. Low suspicion for UTI but pt does indorse increased frequency. Low suspicion for hypothyroidism given reportedly recent normal. Will obtain EKG, CBC, CMP, troponin, UA, and urinalysis. Ordered NS bolus for rehydration. EKG: Sinus bradycardia with ventricular rate of 59bpm. Possible left axis deviation. No ST segment elevation or depression. Unchanged from prior EKG dated 04 January 2018. CBC remarkable for elevated H/H; suspect likely secondary to dehydration. Small left shift. CMP unremarkable for electrolyte abnormality. Troponin not elevated. Will obtain CT of abdomen with IV contrast to further evaluate abdominal pain. 02/14/18 19:04 CXR unremarkable for acute cardiopulmonary process. Abdominal CT revealed mild hepatic steatosis and some aortic calcification. Diverticulosis without diverticulitis was noted. Pt reportedly feeling much better after IV rehydration. Continue to suspect the pt's symptoms are all secondary to poor PO intake over past few weeks. Discussed results and plan to discharge home with PCP follow up with patient and pt's sister. Both expressed verbal understanding and agreement. *DC/Admit/Observation/Transfer Diagnosis at time of Disposition: Dehydration Abdominal pain Qualifiers: Abdominal location: lower abdomen, unspecified Qualified Code(s): R10.30 - Lower abdominal pain, unspecified - Discharge Dispostion Disposition: HOME Condition at time of disposition: Improved Decision to Admit order: No - Referrals - Patient Instructions Printed Discharge Instructions: DI for Dehydration -- Adult Additional Instructions: Your laboratory / imaging results were negative for abnormalities or injuries. Your symptoms are likely because of your decreased appetite and food intake. Follow up with your primary care physician as needed. Continue taking your medications as prescribed. Return if worsening symptoms including fevers, headache, vomiting, visual or hearing disturbances, abdominal pain, chest pain, shortness of breath, syncope, dehydration, inability to take things by mouth, altered mental status, or worsening concerning symptoms. - Post Discharge Activity
[2018-02-14 14:34] VITALS: BMI 21.6
[2018-02-14] MEDS ORDERED: SODIUM CHLORIDE 0.9% 500 ML INFUS.BAG IV ONE (15:02)
[2018-02-14 15:21] LABS: URINE APPEARANCE Clear; URINE BILIRUBIN Negative (NEGATIVE); URINE COLOR Yellow; URINE GLUCOSE (UA) Negative (NEGATIVE); URINE KETONE Trace (NEGATIVE); URINE LEUK ESTERASE Negative (NEGATIVE); URINE NITRITE Negative (NEGATIVE); URINE PROTEIN Negative (NEGATIVE); URINE UROBILINOGEN 0.2 (0.2-1.0)
[2018-02-14 15:31] LABS: BASO % 0.1 % (0-2.0); EOS % 0.5 % (0-4.5); HEMATOCRIT 45.7 % (32.4-45.2); HEMOGLOBIN 15.4 GM/dl (10.7-15.3); LYMPH % 9.4 % (8-40); MCH 28.1 pg (25.7-33.7); MCHC 33.7 g/dl (32.0-36.0); MEAN CELL VOLUME 83.4 fl (80-96); MEAN PLT VOLUME 7.4 fl (7.5-11.1); MONO % 5.9 % (3.8-10.2); NEUT % 84.1 % (42.8-82.8); PLATELET COUNT 315 K/MM3 (134-434); RBC 5.47 M/mm3 (3.60-5.2); RDW 12.3 % (11.6-15.6); WHITE BLOOD COUNT 8.7 K/mm3 (4.0-10.8)
--- NOTE | 2018-02-14 15:35 | PDOC ---
Attending Attestation - Resident Resident Name: Kyle Lundberg - ED Attending Attestation I have performed the following: I have examined & evaluated the patient, The case was reviewed & discussed with the resident, I agree w/resident's findings & plan, Exceptions are as noted - HPI HPI: 77 yo F history diverticulosis, hypothyroid, HL, GERD presents with malaise, recent 7 lb weight loss, poor appetite, weakness, dizziness. She denies fevers, chills, sweats, cold intolerance. Denies chest pain, dysuria, SOB, abd pain, N/V /D. She states that her symptoms started with a week of nonproductive cough. Now with loose stools, not quite diarrhea. - Physicial Exam PE: GENERAL: Awake, alert, and fully oriented, in no acute distress HEAD: No signs of trauma EYES: PERRLA, EOMI, sclera anicteric, conjunctiva clear ENT: Auricles normal inspection, hearing grossly normal, nares patent, oropharynx clear without exudates. Dry mucosa NECK: Normal ROM, supple, no lymphadenopathy, JVD, or masses LUNGS: Breath sounds equal, clear to auscultation bilaterally. No wheezes, and no crackles HEART: Regular rate and rhythm, normal S1 and S2, no murmurs, rubs or gallops ABDOMEN: Soft, +mod LLQ tenderness, normoactive bowel sounds. No guarding, no rebound. No masses EXTREMITIES: Normal range of motion, no edema. No clubbing or cyanosis. No cords, erythema, or tenderness NEUROLOGICAL: Cranial nerves II through XII grossly intact. Normal speech, normal gait SKIN: Warm, Dry, normal turgor, no rashes or lesions noted. - Medical Decision Making Pt presents with nonspecific symptoms aside from weakness, cough, poor appetite. Obtained CBC, CMP, trop, UA, CXR- no significant abnormalities. Will obtain CT a/p to r/o diverticulitis. If neg, will DC home with PMD f/u, as she may require additional workup. Heart Score/ECG Review - ECG Impressions Comment:: EKG read 15:35- Sinus rosemary 59 bpm, no acute ST/T changes
[2018-02-14 15:39] LABS: ALBUMIN 4.2 g/dl (3.5-5.0); ALK PHOS 84 U/L (32-92); ANION GAP 8 (8-16); BILIRUBIN,TOTAL 0.5 mg/dl (0.2-1.0); BLOOD UREA NITROGEN 17 mg/dl (7-18); CALCIUM 9.9 mg/dl (8.4-10.2); CHLORIDE 100 mmol/L (98-107); CO2 28 mmol/L (22-28); CREATININE 0.7 mg/dl (0.6-1.3); GLUCOSE,RANDOM 107 mg/dl (74-106); POTASSIUM 3.7 mmol/L (3.5-5.1); SGOT/AST 27 U/L (10-42); SGPT/ALT 23 U/L (10-40); SODIUM 136 mmol/L (136-145)
[2018-02-14 18:28] VITALS: BP 135/78; PULSE 58; TEMP 98.1
--- NOTE | 2018-02-15 10:49 | EKG ---
Test Reason : Blood Pressure : / mmHG Vent. Rate : 059 BPM Atrial Rate : 059 BPM P-R Int : 176 ms QRS Dur : 078 ms QT Int : 430 ms P-R-T Axes : 043 -29 073 degrees QTc Int : 425 ms SINUS BRADYCARDIA OTHERWISE NORMAL ECG WHEN COMPARED WITH ECG OF 04-JAN-2018 18:57, NO SIGNIFICANT CHANGE WAS FOUND Confirmed by ROSARIO GARDNER MD ([id number]) on 02/15/2018 10:49:10 AM Referred By: ROBY Confirmed By:ROSARIO GARDNER MD
== END 2018-02-14 19:21 | disposition home or self-care (01) ==
LOC: FER 14:09
PROC: 3E0337Z Introduction of Electrolytic and Water Balance Substance into Peripheral Vein, Percutaneous Approach (ICD-10-PCS; principal; 2018-02-14)
DX: E86.0 Dehydration (principal); R10.30 Lower abdominal pain, unspecified
CPT/HCPCS: 36415; 71046-TC-FY; 74177-TC; 80053; 81003; 82550; 84484; 85025; 87086; 93005; 99283-25

== ENCOUNTER 2018-06-03 14:07 | Emergency (ER) | payer BC ==
[2018-06-03 14:11] VITALS: BP 148/92; PULSE 77; TEMP 98.2; BMI 20.9
--- NOTE | 2018-06-03 14:37 | PDOC ---
History of Present Illness - General Chief Complaint: Vomiting/Diarrhea Stated Complaint: ABD PAIN, N/V/D Time Seen by Provider: 06/03/18 14:23 History Source: Patient - History of Present Illness Initial Comments: 06/03/18 14:37 77F w/ pmhx of diverticulosis, hypothyroidism, HLD, GERD, [place] (1993), asthma presents with nausea/vomiting/diarrhea since this morning. Pt states she has had 4 episodes of non-bloody diarrhea and 3 episodes of non-bloody, non-bilious vomiting since this morning after having drank a new "electrolyte drink." She denies fever, but admits to chills and decreased appetite since yesterday. Denies chest pain, shortness of breath, abd pain, constipation, urinary symptoms , blood in urine or stool. Past History - Past Medical History Allergies/Adverse Reactions: Allergies Allergy/AdvReac Type Severity Reaction Status Date / Time ciprofloxacin HCl Allergy Severe Rash Verified 06/03/18 14:08 [From Cipro] midazolam HCl [From Versed] AdvReac Severe Nausea Verified 06/03/18 14:08 Home Medications: Ambulatory Orders Aspirin [ASA -] 81 mg PO Q2D 04/28/16 Atorvastatin Ca [Lipitor] 10 mg PO HS 04/28/16 Levothyroxine [Synthroid -] 75 mcg PO DAILY 04/28/16 Albuterol 0.083% Nebulizer Rukhsana [Ventolin 0.083% Nebulizer Soln -] 1 amp NEB Q4H PRN #1 box 03/24/17 Fluticasone/Salmeterol [Advair 250-50 Diskus] 1 puff IN DAILY 12/23/17 Ondansetron HCl [Zofran] 4 mg PO Q8H #15 tablet 06/03/18 Anemia: No Asthma: Yes Cancer: No Cardiac Disorders: Yes ([place] 1995 "NO HEART DAMAGE") CVA: No COPD: No CHF: No Dementia: No Diabetes: No GI Disorders: Yes (GERD) Disorders: No HTN: No Hypercholesterolemia: Yes Kidney Stones: Yes Liver Disease: (LFT'S ELEVATED DUE TO CRESTOR (PT HOSPITALIZED 12/2011) CRESTOR STOPPED) Seizures: No Thyroid Disease: Yes (HYPOTHROIDISM) - Surgical History Abdominal Surgery: Yes Appendectomy: No Cardiac Surgery: Yes (ANGIOPLASTY 1997) Cholecystectomy: Yes (1980S) Lung Surgery: No Neurologic Surgery: No Orthopedic Surgery: No - Immunization History Td Vaccination: (UNKNOWN) - Suicide/Smoking/Psychosocial Hx Smoking Status: Yes Smoking History: Never smoked Years of Tobacco Use: 50 Have you smoked in the past 12 months: No Number of Cigarettes Smoked Daily: 0 If you are a former smoker, when did you quit?: 20 YEARS Information on smoking cessation initiated: No Hx Alcohol Use: No Drug/Substance Use Hx: No Substance Use Type: None Hx Substance Use Treatment: No Review of Systems - Review of Systems Able to Perform ROS?: Yes Is the patient limited Telugu proficient: No Constitutional: Yes: Chills, Loss of Appetite. No: Fever HEENTM: No: Recent change in vision Respiratory: No: Shortness of Breath Cardiac (ROS): No: Chest Pain ABD/GI: Yes: Nausea, Poor Appetite, Vomiting, Abdominal cramping (mid-epigastric ) Neurological: Yes: Headache (chronic) *Physical Exam - Vital Signs Last Vital Signs Temp Pulse Resp BP Pulse Ox 98.2 F 77 17 148/92 97 06/03/18 14:08 06/03/18 14:08 06/03/18 14:08 06/03/18 14:08 06/03/18 14:08 - Physical Exam General Appearance: Yes: Appropriately Dressed HEENT: positive: EOMI, NERIS, Other (dry mucus membranes) Neck: positive: Supple Respiratory/Chest: positive: Lungs Clear, Normal Breath Sounds Cardiovascular: positive: Regular Rhythm, Regular Rate, S1, S2. negative: JVD Vascular Pulses: Dorsalis-Pedis (R): 2+, Doralis-Pedis (L): 2+ Gastrointestinal/Abdominal: positive: Normal Bowel Sounds, Soft. negative: Distended, Guarding Musculoskeletal: positive: Normal Inspection Integumentary: positive: Normal Color, Dry Neurologic: positive: services engineer II-XII NML intact, Fully Oriented, Alert, Motor Strength 5/5 ED Treatment Course - LABORATORY CBC & Chemistry Diagram: 06/03/18 15:20 06/03/18 15:20 Medical Decision Making - Medical Decision Making 06/03/18 16:21 77F w/ pmhx of hypothyroidism, diverticulosis, HLD, GERD, [place], and asthma presents with nausea/vomiting/diarrhea since this morning likely 2/2 viral gastroenteritis. -Will obtain CBC/CMP, and give IVf NS and Zofran for nausea 06/03/18 16:27 -Pt feeling better after IV Zofran given and fluids. -CBC/CMP unremarkable. WBC wnl, pt is afebrile. -Will trial PO fluids. If pt tolerating fluids, may DC to home with Zofran. 06/03/18 17:02 -EKG unchanged, no ST-T changes or evidence of acute ischemic changes. -DC to home. Recommended to follow up with PCP, Dr. Lao in 2-3 days. Will Rx Zofran for nausea as needed. Case discussed with Dr. Pryor (ED attending) -Iris Karimi, DO - PGY1 *DC/Admit/Observation/Transfer Diagnosis at time of Disposition: Gastroenteritis - Discharge Dispostion Disposition: HOME Condition at time of disposition: Good Decision to Admit order: No - Prescriptions Prescriptions: Ondansetron HCl [Zofran] 4 mg PO Q8H #15 tablet - Referrals Referrals: Tom Lao MD [Primary Care Provider] - - Patient Instructions Printed Discharge Instructions: DI for Viral Gastroenteritis -- Adult Additional Instructions: You were seen in the ED for complaints of nausea, vomiting, and diarrhea. In the ED, you were evaluated and your symptoms were likely due to viral gastroenteritis. You were given IV fluids and Zofran for nausea to help alleviate your symptoms. Your symptoms improved during your ED visit. There is no acute need for hospitalization at this time. You are being discharged home. Please take Zofran 4 mg for nausea as needed. Please continue taking your home medications as prescribed. Please follow up with your primary care physician within 1 week. If you experience persistent nausea, vomiting, diarrhea, chest pain, shortness of breath, extreme abdominal pain or distension, please proceed to your nearest emergency room immediately. - Post Discharge Activity
[2018-06-03] MEDS ORDERED: ONDANSETRON 4 MG/2 ML VIAL IVPUSH ONE (14:38)
--- NOTE | 2018-06-03 14:41 | PDOC ---
Attending Attestation - Resident Resident Name: Iris Karimi - ED Attending Attestation I have performed the following: I have examined & evaluated the patient, The case was reviewed & discussed with the resident, I agree w/resident's findings & plan, Exceptions are as noted - HPI HPI: 06/03/18 14:45 77y F hx of hl, gerd, CAD s/p [place], asthma, diverticulitis presents with n/v/d since this morning. The patient states that she was feeling fine yesterday and this morning she had some milk and then had an electrolyte drink that she bought at [employer] shortly after she began to feel nauseous, vomited 3 times that was nonbloody non-coffee emesis. Patient also notes that she had 3 episodes of nonbloody non-melanotic diarrhea. His intermittent epigastric pain seems to be relieved with episodes of vomiting. The patient denies any fever, chills, current abdominal pain, rectal bleeding, melena, dysuria, frequency. No recent travel or known sick contacts She denies any chest pain, shortness of breath, back pain, headache - Physicial Exam PE: 06/03/18 16:56 GENERAL: The patient is awake, alert, and fully oriented, Nontoxic - in no acute distress. HEAD: Normocephalic, atraumatic. EYES: extraocular movements intact, sclera anicteric, conjunctiva clear. ENT: Normal voice, Moist mucous membranes. NECK: Normal range of motion, supple LUNGS: Breath sounds equal, clear to auscultation bilaterally. No wheezes, no rhonchi, no rales. HEART: Regular rate and rhythm, normal S1 and S2 without murmur, rub or gallop. ABDOMEN: Soft, nontender, No guarding, no rebound. . No CVA tenderness EXTREMITIES: Normal range of motion, NEUROLOGICAL: No facial assymetry, Normal speech, PSYCH: Normal mood, normal affect. SKIN: Warm, Dry, normal turgor, - Medical Decision Making 06/03/18 16:57 Suspect gastroenteritis Patient's abdomen is soft nontender do not suspect appendicitis, diverticulitis , colitis. The patient is feeling improved after hydration and anti-medic she was able to tolerate oral intake of juice. We'll discharge patient follow-up with Dr. Lao return precautions were discussed Heart Score/ECG Review - ECG Impressions Comment:: 06/03/18 17:03 Twelve-lead EKG was performed and reviewed by me. There is normal sinus rhythm with a normal rate. Rate of 63 the intervals are normal No ST elevation or ST depression to suggest AMI
[2018-06-03] MEDS ORDERED: SODIUM CHLORIDE 1,000 ML IV STA (14:47)
[2018-06-03] MEDS ORDERED: ONDANSETRON 4 MG/2 ML VIAL ONE (14:54)
[2018-06-03 15:32] LABS: BASO % 0.7 % (0-2.0); EOS % 0.2 % (0-4.5); HEMATOCRIT 39.5 % (32.4-45.2); HEMOGLOBIN 13.1 GM/dl (10.7-15.3); LYMPH % 7.9 % (8-40); MCHC 33.3 g/dl (32.0-36.0); MEAN CELL VOLUME 87.1 fl (80-96); MEAN PLT VOLUME 7.1 fl (7.5-11.1); MONO % 3.1 % (3.8-10.2); NEUT % 88.1 % (42.8-82.8); PLATELET COUNT 297 K/MM3 (134-434); RBC 4.54 M/mm3 (3.60-5.2); RDW 12.5 % (11.6-15.6); WHITE BLOOD COUNT 9.1 K/mm3 (4.0-10.8)
[2018-06-03 15:41] LABS: ALBUMIN 3.5 g/dl (3.5-5.0); ALK PHOS 70 U/L (32-92); ANION GAP 8 MMOL/L (8-16); BILIRUBIN,TOTAL 0.6 mg/dl (0.2-1.0); BLOOD UREA NITROGEN 19 mg/dl (7-18); CALCIUM 8.8 mg/dl (8.4-10.2); CHLORIDE 104 mmol/L (98-107); CO2 25 mmol/L (22-28); CREATININE 0.7 mg/dl (0.6-1.3); GLUCOSE,RANDOM 120 mg/dl (74-106); POTASSIUM 3.6 mmol/L (3.5-5.1); SGOT/AST 32 U/L (10-42); SGPT/ALT 25 U/L (10-40); SODIUM 137 mmol/L (136-145); TOT PROT 5.9 g/dl (6.4-8.3)
--- NOTE | 2018-06-07 23:53 | EKG ---
Test Reason : Blood Pressure : / mmHG Vent. Rate : 063 BPM Atrial Rate : 063 BPM P-R Int : 206 ms QRS Dur : 078 ms QT Int : 374 ms P-R-T Axes : 067 -23 086 degrees QTc Int : 382 ms NORMAL SINUS RHYTHM SEPTAL INFARCT , AGE UNDETERMINED ABNORMAL ECG WHEN COMPARED WITH ECG OF 14-FEB-2018 15:31, NO SIGNIFICANT CHANGE WAS FOUND Confirmed by ROSARIO GARDNER MD ([id number]) on 06/07/2018 11:52:36 PM Referred By: DR MITCHELL Confirmed By:ROSARIO GARDNER MD
== END 2018-06-03 17:12 | disposition home or self-care (01) ==
LOC: FER 14:07
PROC: 3E033GC Introduction of Other Therapeutic Substance into Peripheral Vein, Percutaneous Approach (ICD-10-PCS; principal; 2018-06-03)
PROC: 3E0337Z Introduction of Electrolytic and Water Balance Substance into Peripheral Vein, Percutaneous Approach (ICD-10-PCS; 2018-06-03)
DX: K52.9 Noninfective gastroenteritis and colitis, unspecified (principal); E78.5 Hyperlipidemia, unspecified; K21.9 Gastro-esophageal reflux disease without esophagitis; I25.2 Old myocardial infarction; Z87.891 Personal history of nicotine dependence; E03.9 Hypothyroidism, unspecified
CPT/HCPCS: 36415; 80053; 85025; 93005; 99282-25; J7030

== ENCOUNTER 2018-08-07 16:45 | Emergency (ER) | payer BC ==
--- NOTE | 2018-08-07 16:48 | PDOC ---
History of Present Illness <MaximoYu - Last Filed: 08/07/18 20:47> - General History Source: Patient Exam Limitations: No Limitations - History of Present Illness Initial Comments: 08/07/18 17:38 78 yo F with a hx of COPD, CAD s/p [place] (1993), HLD, hypothyroidism, and GERD presents to the emergency department with N/V/D that began today. Per the patient, it began around 8am today and she had 3x NBNB emesis episodes adjacent to each other. In addition, she had multiple episodes of diarrhea without blood. Currently, she feels nauseous and has epigastric discomfort without radiation. She recently changed her diet and endorses having these episodes when she changes her diet "too fast". Her diarrhea resolved when she took pepto bismal. Denies the following: fever, chills, visual changes, headaches, chest pain, SOB, low back pain, dysuria, hematuria, hematochezia, diarrhea, and leg pain/swelling. Pmhx; Refer to above Shx: Cholecystectomy Meds: synthroid, lipitor, zoloft, advair Allergies: ciprofloxacin and midazolam Social: Denies tobacco, alcohol, and substance abuse. <MattieGlenn - Last Filed: 08/09/18 23:53> - General Chief Complaint: Vomiting/Diarrhea Stated Complaint: NAUSEA, VOMITING, DIARRHEA Past History <MaximoYu - Last Filed: 08/07/18 20:47> - Past Medical History Anemia: No Asthma: Yes Cancer: No Cardiac Disorders: Yes ([place] 1995 "NO HEART DAMAGE") CVA: No COPD: No CHF: No Dementia: No Diabetes: No GI Disorders: Yes (GERD) Disorders: No HTN: No Hypercholesterolemia: Yes Kidney Stones: Yes Liver Disease: (LFT'S ELEVATED DUE TO CRESTOR (PT HOSPITALIZED 12/2011) CRESTOR STOPPED) Seizures: No Thyroid Disease: Yes (HYPOTHROIDISM) - Surgical History Abdominal Surgery: Yes Appendectomy: No Cardiac Surgery: Yes (ANGIOPLASTY 1997) Cholecystectomy: Yes () Lung Surgery: No Neurologic Surgery: No Orthopedic Surgery: No - Immunization History Td Vaccination: (UNKNOWN) - Suicide/Smoking/Psychosocial Hx Smoking Status: Yes Smoking History: Never smoked Years of Tobacco Use: 50 Have you smoked in the past 12 months: No Number of Cigarettes Smoked Daily: 0 If you are a former smoker, when did you quit?: 20 YEARS Hx Alcohol Use: No Drug/Substance Use Hx: No Substance Use Type: None Hx Substance Use Treatment: No <MattieGlenn - Last Filed: 08/09/18 23:53> - Past Medical History Allergies/Adverse Reactions: Allergies Allergy/AdvReac Type Severity Reaction Status Date / Time ciprofloxacin HCl Allergy Severe Rash Verified 08/07/18 16:46 [From Cipro] midazolam HCl [From Versed] AdvReac Severe Nausea Verified 08/07/18 16:46 Home Medications: Ambulatory Orders Aspirin [ASA -] 81 mg PO Q2D 04/28/16 Atorvastatin Ca [Lipitor] 10 mg PO HS 04/28/16 Levothyroxine [Synthroid -] 75 mcg PO DAILY 04/28/16 Ondansetron [Ondansetron Odt] 4 mg PO TID PRN #5 tab.rapdis 08/07/18 Sertraline HCl [Zoloft -] 12.5 mg PO DAILY 08/07/18 Review of Systems - Review of Systems Able to Perform ROS?: Yes Is the patient limited Armenian proficient: No Constitutional: No: Chills, Diaphoresis, Fever, Weakness HEENTM: No: Eye Pain, Blurred Vision, Recent change in vision, Ear Pain, Nose Pain, Throat Pain, Throat Swelling, Mouth Pain Respiratory: No: Cough, Shortness of Breath, SOB with Exertion, Hemoptysis Cardiac (ROS): No: Chest Pain, Lightheadedness, Palpitations, Syncope, Chest Tightness ABD/GI: Yes: Diarrhea, Nausea, Poor Appetite, Poor Fluid Intake, Vomiting, Abdominal cramping. No: Constipated, Difficulty Swallowing, Rectal Bleeding, Indigestion, Tarry Stools : No: Burning, Dysuria, Hematuria, Urgency Musculoskeletal: No: Back Pain, Joint Pain, Neck Pain Integumentary: No: Bruising, Erythema, Flushing, Lesions, Lumps, Pruritus, Rash Neurological: No: Headache, Numbness, Tingling, Tremors, Ataxia, Dizziness Psychiatric: No: Change in Appetite Endocrine: No: Unexplained Weight Gain Hematologic/Lymphatic: No: Anemia <Glenn Phelps - Last Filed: 08/09/18 23:53> *Physical Exam - Vital Signs Last Vital Signs Temp Pulse Resp BP Pulse Ox 98.2 F 75 18 130/79 100 08/07/18 16:46 08/07/18 16:46 08/07/18 16:46 08/07/18 16:46 08/07/18 16:46 <MaximoYu - Last Filed: 08/07/18 20:47> - Physical Exam General Appearance: Yes: Nourished, Appropriately Dressed. No: Apparent Distress, Intoxicated HEENT: positive: EOMI, NERIS, Normal Voice, Symmetrical, Pharynx Normal, Hearing Grossly Normal. negative: Pale Conjunctivae, Scleral Icterus (R), Scleral Icterus (L), Muffled/Hoarse voice, Pharyngeal Erythema, Tonsillar Exudate, Tonsillar Erythema, Nasal Congestion, Rhinorrhea, Sinus Tenderness, Excessive drooling Neck: positive: Trachea midline. negative: Tender, Lymphadenopathy (R), Lymphadenopathy (L), Tender lateral, Tender midline Respiratory/Chest: positive: Lungs Clear, Normal Breath Sounds. negative: Chest Tender, Respiratory Distress, Accessory Muscle Use, Crackles, Rales, Rhonchi, Stridor, Wheezing, Hyperresonant, Dullness Cardiovascular: positive: Regular Rhythm, Regular Rate, S1, S2. negative: Systolic Murmur Gastrointestinal/Abdominal: positive: Normal Bowel Sounds, Tender (epigastric tenderness. negative mcburney, murphys, and rebound tenderness. ), Flat, Soft Lymphatic: negative: Adenopathy Musculoskeletal: positive: Normal Inspection. negative: CVA Tenderness, CVA Tenderness (L), Vertebral Tenderness Extremity: positive: Normal Capillary Refill, Normal Inspection, Normal Range of Motion. negative: Tender, Swelling, Calf Tenderness Integumentary: positive: Normal Color, Dry, Warm. negative: Swelling, Ecchymosis Neurologic: positive: die turner II-XII NML intact, Fully Oriented, Alert, Normal Mood/ Affect, Normal Response, Motor Strength 5/5. negative: EOM Palsy, Facial Droop , Sensory Deficit <Glenn Phelps - Last Filed: 08/09/18 23:53> Moderate Sedation - Procedure Monitoring Vital Signs: Procedure Monitoring Vital Signs Temperature 98.2 F 08/07/18 16:46 Pulse Rate 75 08/07/18 16:46 Respiratory Rate 18 08/07/18 16:46 Blood Pressure 130/79 08/07/18 16:46 O2 Sat by Pulse Oximetry (%) 100 08/07/18 16:46 <Yu Marsh - Last Filed: 08/07/18 20:47> ED Treatment Course - LABORATORY CBC & Chemistry Diagram: 08/07/18 17:24 08/07/18 17:24 - ADDITIONAL ORDERS Additional order review: Laboratory Results 08/07/18 08/07/18 08/07/18 18:43 17:24 17:24 Sodium 137 Potassium 4.7 D Chloride 103 Carbon Dioxide 24 Anion Gap 10 BUN 16 Creatinine 0.6 Creat Clearance w eGFR > 60 Random Glucose 122 H Calcium 9.6 Total Bilirubin 1.4 H AST 47 H D ALT 17 D Alkaline Phosphatase 86 Troponin I < 0.03 Total Protein 6.8 Albumin 3.9 Lipase 75 Urine Color Yellow Urine Appearance Clear Urine pH 7.5 Ur Specific Surry 1.020 Urine Protein Negative Urine Glucose (UA) Negative Urine Ketones Trace Urine Blood Negative Urine Nitrite Negative Urine Bilirubin Negative Urine Urobilinogen 0.2 Ur Leukocyte Esterase Negative 08/07/18 17:24 RBC 5.16 MCV 86.3 MCHC 33.3 RDW 12.2 MPV 8.1 Neutrophils % 85.9 H Lymphocytes % 9.1 Monocytes % 3.9 Eosinophils % 0.1 Basophils % 1.0 - Medications Given in the ED: ED Medications Discontinued Medications Generic Name Dose Route Start Last Admin Trade Name Freq PRN Reason Stop Dose Admin Al Hydroxide/Mg Hydroxide 30 ml 08/07/18 17:15 08/07/18 17:33 Mylanta Oral Suspension - PO 08/07/18 17:16 30 ml ONCE ONE Administration Famotidine/Sodium Chloride 20 mg in 50 mls @ 100 mls/hr 08/07/18 17:15 17:33 Pepcid 20 Mg Premixed Ivpb - IVPB 08/07/18 17:44 100 mls/hr ONCE ONE Administration Sodium Chloride 1,000 mls @ 1,000 mls/hr 08/07/18 17:15 08/07/18 17:33 Normal Saline - IV 08/07/18 18:14 1,000 mls/hr ASDIR STA Administration Ondansetron HCl 4 mg 08/07/18 17:15 08/07/18 17:33 Zofran Injection IVPUSH 08/07/18 17:16 4 mg ONCE ONE Administration Ondansetron HCl 4 mg 08/07/18 19:20 08/07/18 19:26 Zofran Injection IVPUSH 08/07/18 19:21 4 mg ONCE ONE Administration <Yu Marsh - Last Filed: 08/07/18 20:47> - LABORATORY CBC & Chemistry Diagram: 08/07/18 17:24 08/07/18 17:24 <Glenn Phelps - Last Filed: 08/09/18 23:53> Medical Decision Making - Medical Decision Making 08/07/18 20:[address] Pichardo pending CT abdomen pelvis. CT shows billiary duct dilation but no other significant findings. Patient feels improved and is tolerating PO. Will discharge home with follow up with gastroneterology. <Yu Marsh - Last Filed: 08/07/18 20:47> - Medical Decision Making 78 yo F with a hx of COPD, CAD s/p [place] (1993), HLD, hypothyroidism, and GERD presents to the emergency department with N/V/D that began today. Initial vitals: Initial Vital Signs Temp Pulse Resp BP Pulse Ox 98.2 F 75 18 130/79 100 08/07/18 16:46 08/07/18 16:46 08/07/18 16:46 08/07/18 16:46 08/07/18 16:46 Work up: sBO, gastroenteritis vs GERD vs UTI vs colitis vs ischemic colitis vs mesenteric ischemia vs IBS vs acs Laboratory Tests 08/07/18 08/07/18 08/07/18 17:24 17:24 17:24 WBC 9.4 RBC 5.16 Hgb 14.8 Hct 44.5 MCV 86.3 MCH 28.8 MCHC 33.3 RDW 12.2 Plt Count 330 MPV 8.1 Absolute Neuts (auto) 8.0 Neutrophils % 85.9 H Lymphocytes % 9.1 Monocytes % 3.9 Eosinophils % 0.1 Basophils % 1.0 Sodium 137 Potassium 4.7 D Chloride 103 Carbon Dioxide 24 Anion Gap 10 BUN 16 Creatinine 0.6 Creat Clearance w eGFR > 60 Random Glucose 122 H Calcium 9.6 Total Bilirubin 1.4 H AST 47 H D ALT 17 D Alkaline Phosphatase 86 Troponin I < 0.03 Total Protein 6.8 Albumin 3.9 Lipase 75 Urine Color Urine Appearance Urine pH Ur Specific Sur[place] Urine Protein Urine Glucose (UA) Urine Ketones Urine Blood Urine Nitrite Urine Bilirubin Urine Urobilinogen Ur Leukocyte Esterase 08/07/18 18:43 WBC RBC Hgb Hct MCV MCH MCHC RDW Plt Count MPV Absolute Neuts (auto) Neutrophils % Lymphocytes % Monocytes % Eosinophils % Basophils % Sodium Potassium Chloride Carbon Dioxide Anion Gap BUN Creatinine Creat Clearance w eGFR Random Glucose Calcium Total Bilirubin AST ALT Alkaline Phosphatase Troponin I Total Protein Albumin Lipase Urine Color Yellow Urine Appearance Clear Urine pH 7.5 Ur Specific [place] 1.020 Urine Protein Negative Urine Glucose (UA) Negative Urine Ketones Trace Urine Blood Negative Urine Nitrite Negative Urine Bilirubin Negative Urine Urobilinogen 0.2 Ur Leukocyte Esterase Negative labs within normal limits. patient was given zofran, NS, maalox, and pepcid. patient had significant pain improvement with the medications. patient was signed out to Dr. Marsh with pending abdomen pelvis CT. <Glenn Phelps - Last Filed: 08/09/18 23:53> *DC/Admit/Observation/Transfer - Discharge Dispostion Decision to Admit order: No <Yu Marsh - Last Filed: 08/07/18 20:47> <Glenn Phelps - Last Filed: 08/09/18 23:53> Diagnosis at time of Disposition: Nausea and vomiting Qualifiers: Vomiting type: unspecified Vomiting Intractability: non-intractable Qualified Code(s): R11.2 - Nausea with vomiting, unspecified - Discharge Dispostion Disposition: HOME Condition at time of disposition: Good - Prescriptions Prescriptions: Ondansetron [Ondansetron Odt] 4 mg PO TID PRN #5 tab.rapdis PRN Reason: Nausea - Referrals Referrals: Tom Lao MD [Primary Care Provider] - - Patient Instructions Printed Discharge Instructions: Nausea and Vomiting-Adult Additional Instructions: You came to the ED for nausea and vomiting. Your Cat scan did not show any acute findings to explain your symptoms. you may have a hiatal hernia and should follow up with gastroenterology as soon as possible. Return to the ED for severe pain in the belly, or persistent nausea and vomiting. You can use the zofran prescribed to help with the nausea, but you should return to the Ed if the nausea is persistent or accompanied by fever or pain. - Post Discharge Activity
[2018-08-07 16:58] VITALS: BP 130/79; PULSE 75; TEMP 98.2; BMI 20.7
[2018-08-07] MEDS ORDERED: MAG HYDROX/AL HYDROX/SIMETH 30 ML UNIT-DOSE CUP PO ONE (17:15)
[2018-08-07] MEDS ORDERED: FAMOTIDINE 20 MG/50 ML IVPB 20 MG/50 ML MG IVPB ONE ×2 (17:15→17:25)
[2018-08-07] MEDS ORDERED: SODIUM CHLORIDE 1,000 ML IV STA (17:15)
[2018-08-07] MEDS ORDERED: ONDANSETRON 4 MG/2 ML VIAL IVPUSH ONE ×2 (17:15→19:20)
[2018-08-07] MEDS ORDERED: ONDANSETRON 4 MG/2 ML VIAL ONE ×2 (17:25→19:22)
[2018-08-07] MEDS ORDERED: MAG HYDROX/AL HYDROX/SIMETH 30 ML UNIT-DOSE CUP ONE (17:25)
--- NOTE | 2018-08-07 17:34 | PDOC ---
Attending Attestation - Resident Resident Name: MattieGlenn - ED Attending Attestation I have performed the following: I have examined & evaluated the patient, The case was reviewed & discussed with the resident, I agree w/resident's findings & plan, Exceptions are as noted - HPI HPI: 08/07/18 18:09 78 yo F wtih h/o COPD, CAD s/p [place] (1993), HLD, hypothyroidism, and GERD, and multilple ed visits for n/v /d here with similar complaints n/v/d. pt states had few episodes of nonbilious nonbloody emesis. multiple loose watery stools. now feels lightheaded and weak. denies vertigo. no cp no sob. no recent abx use. no travel. no sick contacts. pt has not seen a residency coordinator despite referrals. prior surgical history of cholecystectomy. - Physicial Exam PE: 08/07/18 18:11 awake alert dry mucous membranes . lungs clear bilaterally heart rrr no mrg abd soft nt nd. ext wwp no edema. no calf tenderness. skin warm and dry. no rash. nuero alert and oriented x 3. - Medical Decision Making 08/07/18 18:20 differential hiatal hernia, dehydration, renal failure. sbo, pancreatitis. gastritis, gerd, hypokalemia. plan labs ekg ct a/p iv hydration antiemetics. reassess. 08/07/18 19:20 pt labs unremarkable. mild bilirubin elevation post neena. plan ct a/p. pt signed out to oncoming attending dr whittaker awaiting ct a/p Heart Score/ECG Review #1 ECG reviewed & interpreted by me at: 17:34 General ECG Interpretation: Sinus Rhythm, Normal Rate (60), Normal Intervals, No acute ischemic changes
[2018-08-07 17:50] LABS: ALBUMIN 3.9 g/dl (3.5-5.0); ALK PHOS 86 U/L (32-92); ANION GAP 10 MMOL/L (8-16); BILIRUBIN,TOTAL 1.4 mg/dl (0.2-1.0); BLOOD UREA NITROGEN 16 mg/dl (7-18); CALCIUM 9.6 mg/dl (8.4-10.2); CHLORIDE 103 mmol/L (98-107); CO2 24 mmol/L (22-28); CREATININE 0.6 mg/dl (0.6-1.3); GLUCOSE,RANDOM 122 mg/dl (74-106); POTASSIUM 4.7 mmol/L (3.5-5.1); SGOT/AST 47 U/L (10-42); SGPT/ALT 17 U/L (10-40); SODIUM 137 mmol/L (136-145); TOT PROT 6.8 g/dl (6.4-8.3)
[2018-08-07 17:53] LABS: EOS % 0.1 % (0-4.5); HEMOGLOBIN 14.8 GM/dl (10.7-15.3)
[2018-08-07 17:56] LABS: HEMATOCRIT 44.5 % (32.4-45.2); LYMPH % 9.1 % (8-40); MCH 28.8 pg (25.7-33.7); MCHC 33.3 g/dl (32.0-36.0); MEAN CELL VOLUME 86.3 fl (80-96); MEAN PLT VOLUME 8.1 fl (7.5-11.1); MONO % 3.9 % (3.8-10.2); NEUT % 85.9 % (42.8-82.8); PLATELET COUNT 330 K/MM3 (134-434); RBC 5.16 M/mm3 (3.60-5.2); RDW 12.2 % (11.6-15.6); WHITE BLOOD COUNT 9.4 K/mm3 (4.0-10.8)
[2018-08-07 19:05] LABS: PH,URINE 7.5 (4.5-8); URINE APPEARANCE Clear; URINE BILIRUBIN Negative (NEGATIVE); URINE COLOR Yellow; URINE GLUCOSE (UA) Negative (NEGATIVE); URINE KETONE Trace (NEGATIVE); URINE LEUK ESTERASE Negative (NEGATIVE); URINE NITRITE Negative (NEGATIVE); URINE PROTEIN Negative (NEGATIVE); URINE UROBILINOGEN 0.2 (0.2-1.0)
[2018-08-07 20:14] LABS: LIPASE 75 U/L (73-393)
--- NOTE | 2018-08-08 19:38 | EKG ---
Test Reason : Blood Pressure : / mmHG Vent. Rate : 060 BPM Atrial Rate : 060 BPM P-R Int : 182 ms QRS Dur : 074 ms QT Int : 328 ms P-R-T Axes : 036 -23 080 degrees QTc Int : 328 ms NORMAL SINUS RHYTHM NONSPECIFIC T WAVE ABNORMALITY ABNORMAL ECG WHEN COMPARED WITH ECG OF 03-JUN-2018 16:59, NO SIGNIFICANT CHANGE WAS FOUND Confirmed by ROSARIO GARDNER MD ([id number]) on 08/08/2018 7:38:45 PM Referred By: MINOR HERNANDEZ Confirmed By:ROSARIO GARDNER MD
== END 2018-08-07 20:59 | disposition home or self-care (01) ==
LOC: FER 16:45
PROC: 3E033GC Introduction of Other Therapeutic Substance into Peripheral Vein, Percutaneous Approach (ICD-10-PCS; principal; 2018-08-07)
PROC: 3E0337Z Introduction of Electrolytic and Water Balance Substance into Peripheral Vein, Percutaneous Approach (ICD-10-PCS; 2018-08-07)
DX: R11.2 Nausea with vomiting, unspecified (principal)
CPT/HCPCS: 36415; 74177-TC; 80053; 81003; 83690; 84484; 85025; 87086; 93005; 99283-25; J7030

== ENCOUNTER 2018-08-21 12:15 | Emergency (ER) | payer BC ==
[2018-08-21 12:20] VITALS: BP 107/62; PULSE 62; TEMP 97.4; BMI 20.7
[2018-08-21] MEDS ORDERED: SODIUM CHLORIDE 0.9% 1000 ML INFUS.BAG IV ONE (12:22)
[2018-08-21] MEDS ORDERED: FAMOTIDINE 20 MG/50 ML IVPB 20 MG/50 ML MG IVPB ONE ×2 (12:22→12:48)
[2018-08-21] MEDS ORDERED: LIDOCAINE VISCOUS 2% ORAL/TOP 20 ML UNIT-DOSE CUP MM ONE (12:23)
[2018-08-21] MEDS ORDERED: LIDOCAINE VISCOUS 2% ORAL/TOP 20 ML UNIT-DOSE CUP ONE (12:48)
[2018-08-21 13:15] LABS: EOS % 0.5 % (0-4.5)
[2018-08-21 13:18] LABS: BASO % 1.4 % (0-2.0); HEMATOCRIT 44.7 % (32.4-45.2); HEMOGLOBIN 14.6 GM/dl (10.7-15.3); LYMPH % 13.3 % (8-40); MCH 28.4 pg (25.7-33.7); MCHC 32.7 g/dl (32.0-36.0); MEAN CELL VOLUME 86.9 fl (80-96); MONO % 4.5 % (3.8-10.2); NEUT % 80.3 % (42.8-82.8); PLATELET COUNT 310 K/MM3 (134-434); RBC 5.14 M/mm3 (3.60-5.2); RDW 12.7 % (11.6-15.6)
[2018-08-21 13:28] LABS: ALBUMIN 3.9 g/dl (3.4-5.0); ALK PHOS 82 U/L (45-117); ANION GAP 5 MMOL/L (8-16); BILIRUBIN,TOTAL 0.9 mg/dl (0.2-1); BLOOD UREA NITROGEN 20 mg/dl (7-18); CALCIUM 9.3 mg/dl (8.5-10); CHLORIDE 103 mmol/L (98-107); CO2 27 mmol/L (21-32); CREATININE 0.9 mg/dl (0.55-1.3); GLUCOSE,RANDOM 106 mg/dl (74-106); POTASSIUM 4.1 mmol/L (3.5-5.1); SGOT/AST 27 U/L (15-37); SGPT/ALT 20 U/L (13-61); SODIUM 135 mmol/L (136-145); TOT PROT 6.6 g/dl (6.4-8.2)
--- NOTE | 2018-08-21 13:37 | PDOC ---
History of Present Illness - General Chief Complaint: Nausea Stated Complaint: "I FEEL DEHYDRATED", INTERMITT NAUSEA History Source: Patient Exam Limitations: No Limitations - History of Present Illness Initial Comments: 08/21/18 13:32 78 yo F with h/o severe reflux, hiatal hernia, scheduled for EGD with Dr Sanchez 2 days from today, here with feeling like she can't eat. states when she eats she feels nausea, and everything comes back up. no choking or vomiting . tolerating liquids, water and gatorade at home. not taking solids. no f/c no abd pain. describes burning pain into chest with nausea. no other complaints. now feeling fatigued and lightheaded. Past History - Past Medical History Allergies/Adverse Reactions: Allergies Allergy/AdvReac Type Severity Reaction Status Date / Time ciprofloxacin HCl Allergy Severe Rash Verified 08/21/18 12:16 [From Cipro] midazolam HCl [From Versed] AdvReac Severe Nausea Verified 08/21/18 12:16 Home Medications: Ambulatory Orders Aspirin [ASA -] 81 mg PO Q2D 04/28/16 Atorvastatin Ca [Lipitor] 10 mg PO HS 04/28/16 Levothyroxine [Synthroid -] 75 mcg PO DAILY 04/28/16 Sertraline HCl [Zoloft -] 12.5 mg PO DAILY 08/07/18 Pantoprazole Sodium 40 mg PO DAILY 08/19/18 Ondansetron HCl [Zofran] 4 mg PO ASDIR 08/21/18 Anemia: No Asthma: Yes Cancer: No Cardiac Disorders: Yes ([place] 1995 "NO HEART DAMAGE") CVA: No COPD: No CHF: No Dementia: No Diabetes: No GI Disorders: Yes (GERD) Disorders: No HTN: No Hypercholesterolemia: Yes Kidney Stones: Yes Liver Disease: (LFT'S ELEVATED DUE TO CRESTOR (PT HOSPITALIZED 12/2011) CRESTOR STOPPED) Seizures: No Thyroid Disease: Yes (HYPOTHROIDISM) - Surgical History Abdominal Surgery: Yes Appendectomy: No Cardiac Surgery: Yes (ANGIOPLASTY 1997) Cholecystectomy: Yes () Lung Surgery: No Neurologic Surgery: No Orthopedic Surgery: No - Immunization History Td Vaccination: (UNKNOWN) - Suicide/Smoking/Psychosocial Hx Smoking Status: Yes Smoking History: Never smoked Years of Tobacco Use: 50 Have you smoked in the past 12 months: No Number of Cigarettes Smoked Daily: 0 If you are a former smoker, when did you quit?: 22 YEARS Information on smoking cessation initiated: No Hx Alcohol Use: No Drug/Substance Use Hx: No Substance Use Type: None Hx Substance Use Treatment: No Review of Systems - Review of Systems Constitutional: No: Chills, Diaphoresis, Fever HEENTM: No: Eye Pain Respiratory: No: Cough, Orthopnea, Shortness of Breath Cardiac (ROS): No: Chest Pain, Edema ABD/GI: Yes: Nausea, Poor Appetite. No: Poor Fluid Intake, Vomiting : No: Burning, Dysuria Musculoskeletal: No: Back Pain Integumentary: No: Bruising Neurological: Yes: Weakness. No: Headache, Numbness, Paresthesia All Other Systems: Reviewed and Negative *Physical Exam - Vital Signs Last Vital Signs Temp Pulse Resp BP Pulse Ox 97.4 F L 62 18 107/62 97 08/21/18 12:15 08/21/18 12:15 08/21/18 12:15 08/21/18 12:15 08/21/18 12:15 - Physical Exam Comments: 08/21/18 13:34 awake alert lungs clear bilaterally heart rrr no mrg abd soft nt nd. ext wwp no edema. no calf tenderness. ext wwp . nuero alrt oriented x 3. Moderate Sedation - Procedure Monitoring Vital Signs: Procedure Monitoring Vital Signs Temperature 97.4 F L 08/21/18 12:15 Pulse Rate 62 08/21/18 12:15 Respiratory Rate 18 08/21/18 12:15 Blood Pressure 107/62 08/21/18 12:15 O2 Sat by Pulse Oximetry (%) 97 08/21/18 12:15 ED Treatment Course - LABORATORY CBC & Chemistry Diagram: 08/21/18 13:08 08/21/18 13:08 - ADDITIONAL ORDERS Additional order review: Laboratory Results 08/21/18 13:08 Sodium 135 L Potassium 4.1 Chloride 103 Carbon Dioxide 27 Anion Gap 5 L BUN 20 H Creatinine 0.9 Creat Clearance w eGFR > 60 Random Glucose 106 Calcium 9.3 Total Bilirubin 0.9 AST 27 ALT 20 Alkaline Phosphatase 82 Total Protein 6.6 Albumin 3.9 08/21/18 13:08 RBC 5.14 MCV 86.9 MCHC 32.7 RDW 12.7 MPV 8.0 Neutrophils % 80.3 Lymphocytes % 13.3 Monocytes % 4.5 Eosinophils % 0.5 Basophils % 1.4 - Medications Given in the ED: ED Medications Discontinued Medications Generic Name Dose Route Start Last Admin Trade Name Kayla PRN Reason Stop Dose Admin Famotidine/Sodium Chloride 20 mg in 50 mls @ 100 mls/hr 08/21/18 12:22 13:10 Pepcid 20 Mg Premixed Ivpb - IVPB 08/21/18 12:51 100 mls/hr ONCE ONE Administration Lidocaine HCl 10 ml 08/21/18 12:23 08/21/18 12:55 Xylocaine 2% Viscous Oral - MM 08/21/18 12:24 10 ml ONCE ONE Administration Sodium Chloride 1,000 ml 08/21/18 12:22 08/21/18 12:55 Normal Saline - IV 08/21/18 12:23 1,000 ml ONCE ONE Administration Medical Decision Making - Medical Decision Making 08/21/18 13:35 pt with nontender abdomen, normal heart and lung exam. will check labs lipase and cbc . hydrate. pt still tolerating po. reassess. if feeling better willl dc home fu for endoscopy on thursday. 08/21/18 14:03 pt feels better. labs unremarkable. tolerating gingerale in ED dc hoem fu with melissa thursday. *DC/Admit/Observation/Transfer Diagnosis at time of Disposition: Reflux esophagitis - Discharge Dispostion Disposition: HOME Condition at time of disposition: Improved - Referrals Referrals: Tom Lao MD [Primary Care Provider] - Juan Sanchez MD [Staff Physician] - - Patient Instructions Printed Discharge Instructions: Gastroesophageal Reflux Disease (Alternative Therapy) Additional Instructions: your labs are unremarkable. you should follow up with DR Sanchez on thursday as scheduled. return for fever, persistant vomiting feeling dizzy or lightheaded or any concerns. - Post Discharge Activity
== END 2018-08-21 14:30 | disposition home or self-care (01) ==
LOC: FER 12:15
PROC: 3E033GC Introduction of Other Therapeutic Substance into Peripheral Vein, Percutaneous Approach (ICD-10-PCS; principal; 2018-08-21)
PROC: 3E0337Z Introduction of Electrolytic and Water Balance Substance into Peripheral Vein, Percutaneous Approach (ICD-10-PCS; 2018-08-21)
DX: K21.0 Gastro-esophageal reflux disease with esophagitis (principal); K21.9 Gastro-esophageal reflux disease without esophagitis; K44.9 Diaphragmatic hernia without obstruction or gangrene; I25.2 Old myocardial infarction; J45.909 Unspecified asthma, uncomplicated; E78.00 Pure hypercholesterolemia, unspecified; E03.9 Hypothyroidism, unspecified; Z79.82 Long term (current) use of aspirin
CPT/HCPCS: 36415; 80053; 83690; 85025; 99284-25; J7030

== ENCOUNTER 2018-08-23 07:52 | Day surgery (SDC) | payer BC ==
[2018-08-19 10:11] VITALS: BMI 20.9
[2018-08-23] MEDS ORDERED: LIDOCAINE HCL/PF 2% SDV 5ML VIAL ONE (08:53)
[2018-08-23] MEDS ORDERED: PROPOFOL 20 ML ONE ×2 (08:53)
[2018-08-23 10:19] VITALS: TEMP 98.1
[2018-08-23 10:27] VITALS: BP 100/62; PULSE 56
--- NOTE | 2018-08-24 17:29 | PATH ---
Surgical Pathology Report Patient Name: PREETI ROMERO [facility]. Rec. #: [id number] /Age/Gender: 1940 (Age: 78) / F Account: [id number] Location: [facility] Taken: 08/23/2018 Received: 08/23/2018 Reported: 08/24/2018 Physicians: Juan Sanchez M.D. Specimen(s) Received A: BX DUODENUM B: BX ANTRUM Clinical History GERD Postoperative diagnosis: Gastritis Final Diagnosis A. DUODENUM, BIOPSY: DUODENAL MUCOSA WITHOUT SIGNIFICANT PATHOLOGIC FINDINGS. B. STOMACH, ANTRUM, BIOPSY: GASTRIC ANTRAL MUCOSA WITH MILD CHRONIC GASTRITIS. IMMUNOHISTOCHEMICAL STAIN FOR H. PYLORI IS NEGATIVE. Electronically Signed Preeti Harvey M.D. Gross Description A. Received in formalin, labeled "duodenum" are 2 finn, irregular portions of soft tissue measuring 0.2 and 0.3 cm. in greatest dimension. The specimens are submitted in toto in one cassette. B. Received in formalin, labeled "antrum" are 3 finn, irregular portions of soft tissue ranging from 0.3-0.4 cm. in greatest dimension. The specimens are submitted in toto in one cassette. 08/23/201808/23/2018
== END 2018-08-23 10:05 | disposition home or self-care (01) ==
LOC: FASU-ENDO 07:52
PROVIDERS: ATTEND Internal Medicine Gastroenterology
PROC: 0DB68ZX Excision of Stomach, Via Natural or Artificial Opening Endoscopic, Diagnostic (ICD-10-PCS; 2018-08-23)
PROC: 0DB98ZX Excision of Duodenum, Via Natural or Artificial Opening Endoscopic, Diagnostic (ICD-10-PCS; principal; 2018-08-23 09:05)
DX: K29.50 Unspecified chronic gastritis without bleeding (principal); R11.0 Nausea
CPT/HCPCS: 88305-TC; 88342-TC

== ENCOUNTER 2018-09-21 08:07 | Emergency (ER) | payer BC ==
[2018-09-21 08:15] VITALS: BP 137/64; PULSE 63; TEMP 97.6; BMI 20.8
--- NOTE | 2018-09-21 08:15 | PDOC ---
History of Present Illness - General Chief Complaint: Pain, Acute Stated Complaint: n/v abd pain Time Seen by Provider: 09/21/18 08:15 - History of Present Illness Initial Comments: 09/21/18 08:17 78yo female with recent dx of gastric ulcer by EGD by Dr. Sanchez 10 days ago presents for eval of epigastric burning, n/v/d. Pt had a follow up after her EGD last thursday and was told she has a gastric ulcer and started on Protonix , which she has been taking daily. Pt states she ate a spicy microwavable meal last night and then all night felt epigastric pain. Pt states this AM she had 2 episodes of n/v/d. States stool was loose - nonbloody, vomitus nbnb. Pt states sour taste in back of mouth. Pt denies f/c. No dysuria. No sore throat, rhinorrhea. States she feels cramping in upper abd. Pt is nontoxic in appearance. No cp/sob. No recent abx. No recent travel. No sick contacts. PMHx: COPD, CAD s/p [place] (1993), HLD, hypothyroidism, and GERD PShx: EGD, Angioplasty, neena Allergies: cipro, versed Past History - Past Medical History Allergies/Adverse Reactions: Allergies Allergy/AdvReac Type Severity Reaction Status Date / Time ciprofloxacin HCl Allergy Severe Rash Verified 09/21/18 08:08 [From Cipro] midazolam HCl [From Versed] AdvReac Severe Nausea Verified 09/21/18 08:08 Home Medications: Ambulatory Orders Atorvastatin Ca [Lipitor] 10 mg PO HS 04/28/16 Levothyroxine [Synthroid -] 75 mcg PO DAILY 04/28/16 Sertraline HCl [Zoloft -] 12.5 mg PO DAILY 08/07/18 Pantoprazole Sodium 40 mg PO DAILY 08/19/18 Anemia: No Asthma: Yes Cancer: No Cardiac Disorders: Yes ([place] 1995 "NO HEART DAMAGE") CVA: No COPD: No CHF: No Dementia: No Diabetes: No GI Disorders: Yes (GERD) Disorders: No HTN: No Hypercholesterolemia: Yes Kidney Stones: Yes Liver Disease: (LFT'S ELEVATED DUE TO CRESTOR (PT HOSPITALIZED 12/2011) CRESTOR STOPPED) Seizures: No Thyroid Disease: Yes (HYPOTHROIDISM) - Surgical History Abdominal Surgery: Yes Appendectomy: No Cardiac Surgery: Yes (ANGIOPLASTY 1997) Cholecystectomy: Yes () Lung Surgery: No Neurologic Surgery: No Orthopedic Surgery: No - Immunization History Td Vaccination: (UNKNOWN) - Suicide/Smoking/Psychosocial Hx Smoking Status: Yes Smoking History: Never smoked Years of Tobacco Use: 50 Have you smoked in the past 12 months: No Number of Cigarettes Smoked Daily: 0 If you are a former smoker, when did you quit?: 22 YEARS Hx Alcohol Use: No Drug/Substance Use Hx: No Substance Use Type: None Hx Substance Use Treatment: No Review of Systems - Review of Systems Able to Perform ROS?: Yes Is the patient limited Czech proficient: No Constitutional: No: Chills, Fever HEENTM: No: Nose Pain, Throat Pain Respiratory: No: Cough, Shortness of Breath Cardiac (ROS): No: Chest Pain, Palpitations ABD/GI: Yes: Diarrhea, Nausea, Vomiting, Abdominal cramping : No: Burning, Dysuria Musculoskeletal: No: Back Pain Integumentary: No: Rash Neurological: No: Headache, Numbness, Paresthesia All Other Systems: Reviewed and Negative *Physical Exam - Vital Signs Last Vital Signs Temp Pulse Resp BP Pulse Ox 97.6 F 63 19 137/64 100 09/21/18 08:07 09/21/18 08:07 09/21/18 08:07 09/21/18 08:07 09/21/18 08:07 - Physical Exam General Appearance: Yes: Nourished, Appropriately Dressed. No: Apparent Distress HEENT: positive: EOMI, Normal Voice, Pharynx Normal. negative: Rhinorrhea Neck: positive: Supple Respiratory/Chest: positive: Lungs Clear, Normal Breath Sounds. negative: Respiratory Distress Cardiovascular: positive: Regular Rhythm, Regular Rate, S1, S2 Gastrointestinal/Abdominal: positive: Normal Bowel Sounds, Tender (mild ttp on deep palpation of the epigastric region), Flat, Soft. negative: Guarding, Rebound Musculoskeletal: positive: Normal Inspection. negative: CVA Tenderness Extremity: positive: Normal Capillary Refill, Normal Inspection, Other (pedal pulses intact, ambulatory with a steady gait) Integumentary: positive: Normal Color, Dry, Warm Neurologic: positive: Fully Oriented, Alert, Normal Mood/Affect Moderate Sedation - Procedure Monitoring Vital Signs: Procedure Monitoring Vital Signs Temperature 97.6 F 09/21/18 08:07 Pulse Rate 63 09/21/18 08:07 Respiratory Rate 19 09/21/18 08:07 Blood Pressure 137/64 09/21/18 08:07 O2 Sat by Pulse Oximetry (%) 100 09/21/18 08:07 Heart Score/ECG Review - ECG Intrepretation Comment:: 09/21/18 08:58 sinus rosemary at 56, nl axis, nl interval, q waves v1-2 age indeterminate, no acute st/t wave findings ED Treatment Course - LABORATORY CBC & Chemistry Diagram: 09/21/18 08:30 09/21/18 08:30 Medical Decision Making - Medical Decision Making 09/21/18 08:57 a/p: 78yo female with n/v/d after eating a microwavable dinner last night - recent PUD -suspect food irritation of the gastric ulcer -will send labs, pt is nontoxic in appearance, cbc, chem, lipase -will hdyrate with ivf hydration -pt did not take protonix this AM -will dose in the ED -EKG -nausea control and then po challenge if labs normal 09/21/18 09:29 labs reviewed, mildly elevated glucose to 137, lipase is not elevated wbc is not elevated h/h stable 09/21/18 09:31 discussed labs with the patient discussed glucose nausea controlled tolerated GI cocktail will finish ivf hydration and po challenge 09/21/18 10:05 pt given a PO challenge 09/21/18 10:56 pt has tolerated po stable for dc to home *DC/Admit/Observation/Transfer Diagnosis at time of Disposition: Nausea & vomiting, Gastric ulcer - Discharge Dispostion Disposition: HOME Condition at time of disposition: Stable Decision to Admit order: No - Referrals Referrals: Tom Lao MD [Primary Care Provider] - Juan Sanchez MD [Staff Physician] - - Patient Instructions Printed Discharge Instructions: DI for Vomiting -- Adult, DI for Gastric Ulcer Additional Instructions: Please drink clear liquids today. Please slowly advance your diet tomorrow. Please eat the BRAT diet tomorrow - bananas, rice, apple sauce, and toast. Please follow up with your PMD and with Dr. Sanchez. Please continue to take protonix as prescribed. Please return to the ED with any further concerns or complaints. - Post Discharge Activity
[2018-09-21] MEDS ORDERED: LIDOCAINE VISCOUS 2% ORAL/TOP 20 ML UNIT-DOSE CUP MM ONE ×2 (08:41→08:55)
[2018-09-21] MEDS ORDERED: PANTOPRAZOLE SODIUM 40 MG VIAL IVPUSH ONE (08:41)
[2018-09-21] MEDS ORDERED: MAG HYDROX/AL HYDROX/SIMETH 30 ML UNIT-DOSE CUP PO ONE (08:41)
[2018-09-21] MEDS ORDERED: SODIUM CHLORIDE 0.9% 1000 ML INFUS.BAG IV ONE (08:41)
[2018-09-21] MEDS ORDERED: ONDANSETRON 4 MG/2 ML VIAL IVPUSH ONE (08:41)
[2018-09-21] MEDS ORDERED: ONDANSETRON 4 MG/2 ML VIAL ONE (08:44)
[2018-09-21] MEDS ORDERED: PANTOPRAZOLE SODIUM 40 MG VIAL ONE (08:44)
[2018-09-21] MEDS ORDERED: MAG HYDROX/AL HYDROX/SIMETH 30 ML UNIT-DOSE CUP ONE (08:55)
[2018-09-21] MEDS ORDERED: LIDOCAINE VISCOUS 2% ORAL/TOP 20 ML UNIT-DOSE CUP ONE (08:55)
[2018-09-21 08:59] LABS: ALBUMIN 3.7 g/dl (3.4-5.0); ALK PHOS 79 U/L (45-117); ANION GAP 11 MMOL/L (8-16); BASO % 0.3 % (0-2.0); BILIRUBIN,TOTAL 0.8 mg/dl (0.2-1); BLOOD UREA NITROGEN 18 mg/dl (7-18); CALCIUM 9.4 mg/dl (8.5-10); CHLORIDE 104 mmol/L (98-107); CO2 24 mmol/L (21-32); CREATININE 0.7 mg/dl (0.55-1.3); EOS % 1.3 % (0-4.5); GLUCOSE,RANDOM 137 mg/dl (74-106); HEMATOCRIT 43.9 % (32.4-45.2); HEMOGLOBIN 14.4 GM/dl (10.7-15.3); LYMPH % 15.1 % (8-40); MAGNESIUM 1.9 mg/dL (1.8-2.4); MCH 28.3 pg (25.7-33.7); MCHC 32.8 g/dl (32.0-36.0); MEAN CELL VOLUME 86.3 fl (80-96); MEAN PLT VOLUME 7.6 fl (7.5-11.1); MONO % 4.3 % (3.8-10.2); PLATELET COUNT 290 K/MM3 (134-434); RBC 5.09 M/mm3 (3.60-5.2); RDW 12.4 % (11.6-15.6); SGOT/AST 25 U/L (15-37); SGPT/ALT 18 U/L (13-61); SODIUM 139 mmol/L (136-145); TOT PROT 6.4 g/dl (6.4-8.2); WHITE BLOOD COUNT 6.8 K/mm3 (4.0-10.8)
[2018-09-21 09:21] LABS: LIPASE 123 U/L (73-393)
[2018-09-21 09:26] LABS: PH,URINE 5.5 (4.5-8); URINE APPEARANCE Clear; URINE BILIRUBIN Negative (NEGATIVE); URINE COLOR Yellow; URINE GLUCOSE (UA) Negative (NEGATIVE); URINE KETONE Negative (NEGATIVE); URINE LEUK ESTERASE Negative (NEGATIVE); URINE NITRITE Negative (NEGATIVE); URINE PROTEIN Negative (NEGATIVE); URINE UROBILINOGEN 0.2 (0.2-1.0)
--- NOTE | 2018-09-22 10:10 | EKG ---
Test Reason : Blood Pressure : / mmHG Vent. Rate : 056 BPM Atrial Rate : 056 BPM P-R Int : 186 ms QRS Dur : 074 ms QT Int : 420 ms P-R-T Axes : 068 -23 063 degrees QTc Int : 405 ms SINUS BRADYCARDIA OTHERWISE NORMAL ECG WHEN COMPARED WITH ECG OF 07-AUG-2018 17:30, NONSPECIFIC T WAVE ABNORMALITY NO LONGER EVIDENT IN LATERAL LEADS QT HAS LENGTHENED Confirmed by ROSY FRANCIS, ALBERT ([id number]) on 09/22/2018 10:10:24 AM Referred By: GHANSHYAM TURNER Confirmed By:ALBERT GALLEGOS MD
== END 2018-09-21 11:05 | disposition home or self-care (01) ==
LOC: FER 08:07
PROC: 3E033GC Introduction of Other Therapeutic Substance into Peripheral Vein, Percutaneous Approach (ICD-10-PCS; principal; 2018-09-21)
PROC: 3E0337Z Introduction of Electrolytic and Water Balance Substance into Peripheral Vein, Percutaneous Approach (ICD-10-PCS; 2018-09-21)
DX: L98.499 Non-pressure chronic ulcer of skin of other sites with unspecified severity (principal); R11.2 Nausea with vomiting, unspecified
CPT/HCPCS: 36415; 80053; 81003; 83690; 83735; 85025; 93005; 96361; 96374; 96375; 99283-25; J7030

== ENCOUNTER 2018-09-21 17:30 | Observation (INO) | payer BC ==
--- NOTE | 2018-09-21 17:31 | PDOC ---
History of Present Illness - General Chief Complaint: Nausea/Vomiting Stated Complaint: NAUSEA/VOMITING Time Seen by Provider: 09/21/18 17:31 - History of Present Illness Initial Comments: 09/21/18 17:32 8yo female with recent dx of gastric ulcer by EGD by Dr. Sanchez 10 days ago presents for eval of epigastric burning, n/v/d. Pt had a follow up after her EGD last thursday and was told she has a gastric ulcer and started on Protonix , which she has been taking daily. Pt states she ate a spicy microwavable meal last night and then all night felt epigastric pain. Pt states this AM she had 2 episodes of n/v/d. States stool was loose - nonbloody, vomitus nbnb. Pt states sour taste in back of mouth. Pt denies f/c. No dysuria. No sore throat, rhinorrhea. States she feels cramping in upper abd. Pt is nontoxic in appearance. No cp/sob. No recent abx. No recent travel. No sick contacts. Pt was seen in the ED earlier today. Was able to tolerate PO and then started with 4 more episodes of vomiting. Pt states about an hour after coming home from the ED she started to have n/v and 1 more episode of diarrhea. No abd pain. No cp/sob. Nonbloody, nonbilious vomiting. Pt states she called Dr. Sanchez who recommend she come back to the ED for obs for ivf hydraiton. PMHx: COPD, CAD s/p [place] (1993), HLD, hypothyroidism, and GERD PShx: EGD, Angioplasty, neena Allergies: cipro, versed Past History - Past Medical History Allergies/Adverse Reactions: Allergies Allergy/AdvReac Type Severity Reaction Status Date / Time ciprofloxacin HCl Allergy Severe Rash Verified 09/21/18 17:31 [From Cipro] midazolam HCl [From Versed] AdvReac Severe Nausea Verified 09/21/18 17:31 Home Medications: Ambulatory Orders Atorvastatin Ca [Lipitor] 10 mg PO HS 04/28/16 Levothyroxine [Synthroid -] 75 mcg PO DAILY 04/28/16 Sertraline HCl [Zoloft -] 12.5 mg PO DAILY 08/07/18 Pantoprazole Sodium 40 mg PO DAILY 08/19/18 Anemia: No Asthma: Yes Cancer: No Cardiac Disorders: Yes ([place] 1995 "NO HEART DAMAGE") CVA: No COPD: No CHF: No Dementia: No Diabetes: No GI Disorders: Yes (GERD) Disorders: No HTN: No Hypercholesterolemia: Yes Kidney Stones: Yes Liver Disease: (LFT'S ELEVATED DUE TO CRESTOR (PT HOSPITALIZED 12/2011) CRESTOR STOPPED) Seizures: No Thyroid Disease: Yes (HYPOTHROIDISM) - Surgical History Abdominal Surgery: Yes Appendectomy: No Cardiac Surgery: Yes (ANGIOPLASTY 1997) Cholecystectomy: Yes () Lung Surgery: No Neurologic Surgery: No Orthopedic Surgery: No - Immunization History Td Vaccination: (UNKNOWN) - Suicide/Smoking/Psychosocial Hx Smoking Status: Yes Smoking History: Never smoked Years of Tobacco Use: 50 Have you smoked in the past 12 months: No Number of Cigarettes Smoked Daily: 0 If you are a former smoker, when did you quit?: 22 YEARS Hx Alcohol Use: No Drug/Substance Use Hx: No Substance Use Type: None Hx Substance Use Treatment: No Review of Systems - Review of Systems Able to Perform ROS?: Yes Is the patient limited Serbian proficient: No Constitutional: No: Chills, Fever HEENTM: No: Nose Pain, Throat Pain Respiratory: No: Cough, Shortness of Breath Cardiac (ROS): No: Chest Pain ABD/GI: Yes: Diarrhea, Nausea, Vomiting. No: Abdominal Distended, Abdominal cramping : No: Burning, Dysuria Musculoskeletal: No: Back Pain Integumentary: No: Bruising, Rash Neurological: No: Headache, Numbness, Paresthesia All Other Systems: Reviewed and Negative *Physical Exam - Physical Exam General Appearance: Yes: Nourished, Appropriately Dressed. No: Apparent Distress HEENT: positive: EOMI, Normal Voice, Pharynx Normal Neck: positive: Supple Respiratory/Chest: positive: Lungs Clear, Normal Breath Sounds. negative: Respiratory Distress Cardiovascular: positive: Regular Rhythm, Regular Rate, S1, S2 Gastrointestinal/Abdominal: positive: Normal Bowel Sounds, Soft. negative: Tender, Guarding, Rebound, Tenderness Musculoskeletal: positive: Normal Inspection. negative: CVA Tenderness Extremity: positive: Normal Capillary Refill, Normal Inspection, Normal Range of Motion, Other (ambulatory with a steady gait) Integumentary: positive: Normal Color, Dry, Warm Neurologic: positive: Fully Oriented, Alert, Normal Mood/Affect, Normal Response , Motor Strength 11/21 Heart Score/ECG Review - ECG Intrepretation Comment:: 09/21/18 17:40 sinus rosemary at 56, nl axis, nl interval, q waves v1-2 which are age indeterminate, no acute st/t wave findings Medical Decision Making - Medical Decision Making 09/21/18 17:38 a/p: 78yo female with n/v -seen in the ED earlier today -labs at the time were nonacute -lipase was negative -recent UGI that showed a gastric ulcer -n/v/d this AM -4 more episodes after going home and unable to tolerate PO -will place an IV -will start ivf hydration, corrie -pt had called Dr. Sanchez who recommended obs for ivf hydration -will keep NPO overnight to allow for bowel rest -microblog sent to [facility] covering for Dr. Lao 09/21/18 18:22 Case discussed with Sarai Peñaloza POOL NURSE - accepst pt under Dr. Benton *DC/Admit/Observation/Transfer Diagnosis at time of Disposition: Gastric ulcer, Intractable nausea and vomiting - Discharge Dispostion Condition at time of disposition: Fair Decision to Admit order: Yes - Referrals Referrals: Tom Lao MD [Primary Care Provider] - - Patient Instructions - Post Discharge Activity
[2018-09-21] MEDS ORDERED: ONDANSETRON 4 MG/2 ML VIAL IVPUSH ONE (17:36)
[2018-09-21] MEDS ORDERED: SODIUM CHLORIDE 0.9% 1000 ML INFUS.BAG IV ONE (17:36)
[2018-09-21] MEDS ORDERED: ONDANSETRON 4 MG/2 ML VIAL ONE (18:03)
[2018-09-21] MEDS ORDERED: METOCLOPRAMIDE HCL INJECTION 10 MG/2 ML VIAL IVPUSH ONE (18:50)
[2018-09-21] MEDS ORDERED: METOCLOPRAMIDE HCL INJECTION 10 MG/2 ML VIAL ONE (18:51)
[2018-09-21] MEDS ORDERED: DEXTROSE 5%-0.45% SALINE 1,000 ML IV SCH (19:45)
--- NOTE | 2018-09-21 19:45 | HP ---
CHIEF COMPLAINT: Epigastric Pain, Nausea, Vomiting, Diarrhea PCP: Dr. Lao HISTORY OF PRESENT ILLNESS: This is a 78 y/o woman with a past medical history of Gastric Ulcer (s/p EGD 10 days ago), GERD, CAD, [place] (1993), HLD, Hypothyroidism, Depression. Who presents to the ED for epigastric pain with non bloody vomiting and diarrhea. Patient was seen in the ED for same earlier d/c and returned due to not being able to tolerate PO fluids and food. Patient reports eating a spicy frozen dinner last night when she starting having epigastric pain. Patient reports having a sour acid taste with belching. Patient reports having an EGD 10 days ago and was recently diagnosed with Gastric Ulcer. Patient sees Dr. Sanchez. Patient denies recent sick contacts. Patient denies fever, cough, DUPREE, SOB, CP, palpitations, constipation, melena, hematochezia, hematuria, dysuria ER course was notable for: (1) Glucose 137 (2) Chest Xray- no significant interval change or acute pathology (3) EKG Sinus Bradycardia 55 bpm Recent Travel: None PAST MEDICAL HISTORY: See HPI PAST SURGICAL HISTORY: Angioplasty 1997 Cholecystectomy 1984 Social History: Smoking: Former > 20 yrs ago Alcohol: Denies Drugs: Denies Lives at home, Independent Family History: Mother- age 99 natural cause Father- age 68 Head Trauma Brother- Diabetes Sister- Diabetes Allergies ciprofloxacin HCl [From Cipro] Allergy (Severe, Verified 09/21/18 17:31) Rash midazolam HCl [From Versed] Adverse Reaction (Severe, Verified 09/21/18 17:31) Nausea FOR APPROXIMATELY ONE WEEK AFTER LADT CATARACT SURGERY HOME MEDICATIONS: Home Medications Medication Instructions Recorded Atorvastatin Ca [Lipitor] 10 mg PO HS 04/28/16 Levothyroxine [Synthroid -] 75 mcg PO DAILY 04/28/16 Sertraline HCl [Zoloft -] 12.5 mg PO DAILY 08/07/18 Pantoprazole Sodium 40 mg PO DAILY 08/19/18 REVIEW OF SYSTEMS CONSTITUTIONAL: chills, generalized weakness, malaise, loss of appetite Absent: fever, diaphoresis, weight change HEENT: Absent: rhinorrhea, nasal congestion, throat pain, throat swelling, difficulty swallowing, mouth swelling, ear pain, eye pain, visual changes CARDIOVASCULAR: Absent: chest pain, syncope, palpitations, irregular heart rate, lightheadedness , peripheral edema RESPIRATORY: Absent: cough, shortness of breath, dyspnea with exertion, orthopnea, wheezing, stridor, hemoptysis GASTROINTESTINAL: abdominal pain, nausea, vomiting, diarrhea Absent: abdominal distension, constipation, melena, hematochezia GENITOURINARY: Absent: dysuria, frequency, urgency, hesitancy, hematuria, flank pain, genital pain MUSCULOSKELETAL: Absent: myalgia, arthralgia, joint swelling, back pain, neck pain SKIN: Absent: rash, itching, pallor HEMATOLOGIC/IMMUNOLOGIC: Absent: easy bleeding, easy bruising, lymphadenopathy, frequent infections ENDOCRINE: Absent: unexplained weight gain, unexplained weight loss, heat intolerance, cold intolerance NEUROLOGIC: Absent: headache, focal weakness or paresthesias, dizziness, unsteady gait, seizure, mental status changes, bladder or bowel incontinence PSYCHIATRIC: Absent: anxiety, depression, suicidal or homicidal ideation, hallucinations. PHYSICAL EXAMINATION Vital Signs - 24 hr 09/21/18 17:31 Temperature 98 F Pulse Rate 85 Respiratory 16 Rate Blood Pressure 139/82 O2 Sat by Pulse 100 Oximetry (%) GENERAL: Awake, alert, and fully oriented, in no acute distress. HEAD: Normal with no signs of trauma. EYES: Pupils equal, round and reactive to light, extraocular movements intact, sclera anicteric, conjunctiva clear. No lid lag. EARS, NOSE, THROAT: Ears normal, nares patent, oropharynx clear without exudates. Dry mucous membranes. NECK: Normal range of motion, supple without lymphadenopathy, JVD, or masses. LUNGS: Breath sounds equal, clear to auscultation bilaterally. No wheezes, and no crackles. No accessory muscle use. HEART: Regular rate and rhythm, normal S1 and S2 without murmur, rub or gallop. ABDOMEN: Epigastric tenderness. Soft, not distended, normoactive bowel sounds, no guarding, no rebound, no masses. No hepatomegaly or splenomegaly. MUSCULOSKELETAL: Normal range of motion at all joints. No bony deformities or tenderness. No CVA tenderness. UPPER EXTREMITIES: 2+ pulses, warm, well-perfused. No cyanosis. No clubbing. No peripheral edema. LOWER EXTREMITIES: 2+ pulses, warm, well-perfused. No calf tenderness. No peripheral edema. NEUROLOGICAL: Cranial nerves II-XII intact. Normal speech. Gait not observed. PSYCHIATRIC: Cooperative. Good eye contact. Appropriate mood and affect. SKIN: Warm, dry, normal turgor, no rashes or lesions noted, normal capillary refill. Laboratory Results - last 24 hr 09/21/18 09/21/18 18:02 18:02 Creatine Kinase 71 Troponin I < 0.03 ASSESSMENT/PLAN: This is a 78 y/o woman with a PMHx of Gatsric Ulcer, GERD, CAD, [place] (1993), HLD, COPD, Hypothyroidism, Depression. Placed in Observation for Intractable Abdominal Pain Nausea, Vomiting, Dehydration for further evaluation of their emergent medical condition. Plan See Problem List: FEN D51/2NS@60ml/hr Replete lytes prn NPO DVT ppx OOB SCDs Consider AC if LOS > 48 hrs Code Status: Full Code Dispo: Observation Problem List - Problem (1) Intractable nausea and vomiting Assessment/Plan: Likely secondary to Gastric Ulcer NS bolus, Zofran and Reglan given in ED Will continue IVF Zofran prn Monitor BMP NPO tonight PO challenge tomorrow Code(s): R11.2 - NAUSEA WITH VOMITING, UNSPECIFIED (2) Abdominal pain Assessment/Plan: Likely secondary to Gastric Ulcer Continue IVF Protonix Monitor CBC, BMP Monitor vitals Code(s): R10.9 - UNSPECIFIED ABDOMINAL PAIN (3) Gastric ulcer Assessment/Plan: s/p EGD Patient reports eating a spicy meal last night Continue Protonix Continue IVF NPO f/u with GI in outpatient upon d/c Code(s): K25.9 - GASTRIC ULCER, UNSP ACUTE OR CHRONIC, W/O HEMOR OR PERF (4) GERD (gastroesophageal reflux disease) Assessment/Plan: Continue Protonix Code(s): K21.9 - GASTRO-ESOPHAGEAL REFLUX DISEASE WITHOUT ESOPHAGITIS (5) COPD (chronic obstructive pulmonary disease) Assessment/Plan: stable no acute flare Continue Albuterol MDI Will need to verify with pts home pharmacy Advair dosage in am Code(s): J44.9 - CHRONIC OBSTRUCTIVE PULMONARY DISEASE, UNSPECIFIED (6) CAD (coronary artery disease) Assessment/Plan: s/p Angioplasty Patient denies CP or SOB Code(s): I25.10 - ATHSCL HEART DISEASE OF [place] CORONARY ARTERY W/O ANG PCTRS (7) HLD (hyperlipidemia) Assessment/Plan: Continue Lipitor Monitor LFTs Code(s): E78.5 - HYPERLIPIDEMIA, UNSPECIFIED (8) Hypothyroidism Assessment/Plan: Continue Synthyroid Code(s): E03.9 - HYPOTHYROIDISM, UNSPECIFIED (9) Depression Assessment/Plan: Continue Zoloft ' Code(s): F32.9 - MAJOR DEPRESSIVE DISORDER, SINGLE EPISODE, UNSPECIFIED Visit type - Emergency Visit Emergency Visit: Yes ED Registration Date: 09/21/18 Care time: The patient presented to the Emergency Department on the above date and was hospitalized for further evaluation of their emergent condition. - New Patient This patient is new to me today: Yes Date on this admission: 09/21/18 - Critical Care Critical Care patient: No
[2018-09-21] MEDS ORDERED: ONDANSETRON 4 MG/2 ML VIAL IVPUSH PRN (19:53)
[2018-09-21] MEDS ORDERED: ALBUTEROL SO4 8 GM HFA INHALER IH PRN (20:13)
[2018-09-21 20:19] VITALS: BMI 20.5
[2018-09-21] MEDS ORDERED: ATORVASTATIN CA 10 MG TABLET (FP) PO SCH (22:00)
[2018-09-22 06:46] VITALS: BP 93/63; PULSE 58; TEMP 98.3
[2018-09-22] MEDS ORDERED: LEVOTHYROXINE NA 75 MCG TABLET (FP) PO SCH (07:00)
[2018-09-22 08:05] LABS: BASO % 0.6 % (0-2.0); HEMOGLOBIN 13.8 GM/dl (10.7-15.3); LYMPH % 15.6 % (8-40); MCH 28.5 pg (25.7-33.7); MCHC 32.8 g/dl (32.0-36.0); MEAN CELL VOLUME 86.6 fl (80-96); MEAN PLT VOLUME 7.8 fl (7.5-11.1); MONO % 7.2 % (3.8-10.2); NEUT % 75.6 % (42.8-82.8); PLATELET COUNT 286 K/MM3 (134-434); RBC 4.86 M/mm3 (3.60-5.2); RDW 12.6 % (11.6-15.6); WHITE BLOOD COUNT 6.8 K/mm3 (4.0-10.8)
[2018-09-22 08:12] LABS: AMYLASE 70 U/L (25-115); ANION GAP 8 MMOL/L (8-16); BLOOD UREA NITROGEN 11 mg/dl (7-18); CHLORIDE 104 mmol/L (98-107); CO2 27 mmol/L (21-32); CREATININE 0.8 mg/dl (0.55-1.3); GLUCOSE,RANDOM 100 mg/dl (74-106); POTASSIUM 3.6 mmol/L (3.5-5.1); SODIUM 139 mmol/L (136-145)
[2018-09-22] MEDS ORDERED: DEXTROSE 5%-0.45% SALINE 1,000 ML IV SCH (09:34)
--- NOTE | 2018-09-22 09:51 | PN ---
Progress Note (short form) - Note Progress Note: Patient seen and chart/labs reviewed. Patient known to me and is s/p EGD 2 weeks ago for evaluation of epigastric pain ; found to have mild gastritis (Not an ulcer) presumeably due to ASA (biopsies negative for H pylori). Treated with PPI and discontinuation of aspirin; epigastric pain resolved. Yesterday ate some food brought to her by her sister ?spicey?microwaved?; shortly thereafter developed abdominal pain, cramps, frequent BMs and N/V. Seen in ED and sent home; symptoms persisted and patient returned and was admitted. Today feels fine without further N/V/abdominal pain. Afebrile VSS Lungs clear Cardiac RRR Abdomen soft +BS, nontender no mass Labs - normal Chem 20/CBC Suspect acute gastroenteritis ?due to microwaved food/ food poisoning Doubt symptoms due to recurrent peptic disease (or biliary issues) Rec: continue PPI begin PO diet - start with liquids discharge home this pm if stable
--- NOTE | 2018-09-22 09:55 | DS ---
Physical Exam: SUBJECTIVE: Patient seen and examined OBJECTIVE: Vital Signs Period Temp Pulse Resp BP Sys/Fine Pulse Ox Last 24 Hr 98 F-98.3 F 58-85 16-19 93-139/48-82 95-100 PHYSICAL EXAM GENERAL: The patient is awake, alert, and fully oriented, in no acute distress. HEAD: Normal with no signs of trauma. EYES: PERRL, extraocular movements intact, sclera anicteric, conjunctiva clear. ENT: Ears normal, nares patent, oropharynx clear without exudates, moist mucous membranes. NECK: Trachea midline, full range of motion, supple. LUNGS: Breath sounds equal, clear to auscultation bilaterally, no wheezes, no crackles, no accessory muscle use. HEART: Regular rate and rhythm, S1, S2 without murmur, rub or gallop. ABDOMEN: Soft, nontender, nondistended, normoactive bowel sounds, no guarding, no rebound, no hepatosplenomegaly, no masses. EXTREMITIES: 2+ pulses, warm, well-perfused, no edema. NEUROLOGICAL: Cranial nerves II through XII grossly intact. Normal speech, gait not observed. PSYCH: Normal mood, normal affect. SKIN: Warm, dry, normal turgor, no rashes or lesions noted. LABS Laboratory Results - last 24 hr 09/21/18 09/21/18 09/22/18 18:02 18:02 07:01 WBC 6.8 RBC 4.86 Hgb 13.8 Hct 42.0 MCV 86.6 MCH 28.5 MCHC 32.8 RDW 12.6 Plt Count 286 MPV 7.8 Absolute Neuts (auto) 5.1 Neutrophils % 75.6 Lymphocytes % 15.6 Monocytes % 7.2 Eosinophils % 1.0 Basophils % 0.6 Sodium Potassium Chloride Carbon Dioxide Anion Gap BUN Creatinine Creat Clearance w eGFR Random Glucose Calcium Creatine Kinase 71 Troponin I < 0.03 Total Amylase 09/22/18 07:01 WBC RBC Hgb Hct MCV MCH MCHC RDW Plt Count MPV Absolute Neuts (auto) Neutrophils % Lymphocytes % Monocytes % Eosinophils % Basophils % Sodium 139 Potassium 3.6 Chloride 104 Carbon Dioxide 27 Anion Gap 8 BUN 11 Creatinine 0.8 Creat Clearance w eGFR > 60 Random Glucose 100 Calcium 9.0 Creatine Kinase Troponin I Total Amylase 70 HOSPITAL COURSE: Date of Admission:09/21/18 Date of Discharge: 09/22/18 Minutes to complete discharge: 35 Discharge Summary Reason For Visit: GASTRIC ULCER/NAUSEA/VOMITING Current Active Problems CAD (coronary artery disease) (Acute) COPD (chronic obstructive pulmonary disease) (Acute) Depression (Acute) Gastric ulcer (Acute) HLD (hyperlipidemia) (Acute) Hypothyroidism (Acute) Intractable nausea and vomiting (Acute) Condition: Fair - Instructions Referrals: Tom Lao MD [Primary Care Provider] - - Home Medications Comprehensive Discharge Medication List: Ambulatory Orders Atorvastatin Ca [Lipitor] 10 mg PO HS 04/28/16 Levothyroxine [Synthroid -] 75 mcg PO DAILY 04/28/16 Sertraline HCl [Zoloft -] 12.5 mg PO DAILY 08/07/18 Pantoprazole Sodium 40 mg PO DAILY 08/19/18 This patient is new to me today: Yes Date on this admission: 09/22/18 Emergency Visit: Yes ED Registration Date: 09/21/18 Care time: The patient presented to the Emergency Department on the above date and was hospitalized for further evaluation of their emergent condition. Critical Care patient: No - Discharge Referral Referred to [facility] Med [facility].C[facility] Yes Physician Referral: Tom Lao MD (Int Med)
[2018-09-22] MEDS ORDERED: PANTOPRAZOLE SODIUM 40 MG VIAL IVPUSH SCH (10:00)
[2018-09-22] MEDS ORDERED: PANTOPRAZOLE 40 MG TABLET (FP) PO SCH (10:00)
[2018-09-22] MEDS ORDERED: SERTRALINE HCL 25 MG TABLET (FP) PO SCH (10:00)
== END 2018-09-22 12:30 | disposition home or self-care (01) ==
LOC: FER 17:30 → FM/S 18:05
PROVIDERS: ADMIT Internal Medicine; ATTEND Nurse Practitioner Acute Care
PROC: 3E033GC Introduction of Other Therapeutic Substance into Peripheral Vein, Percutaneous Approach (ICD-10-PCS; principal; 2018-09-21)
PROC: 3E0337Z Introduction of Electrolytic and Water Balance Substance into Peripheral Vein, Percutaneous Approach (ICD-10-PCS; 2018-09-21)
DX: K21.9 Gastro-esophageal reflux disease without esophagitis (principal); R11.2 Nausea with vomiting, unspecified; R10.9 Unspecified abdominal pain; K25.9 Gastric ulcer, unspecified as acute or chronic, without hemorrhage or perforation; E03.9 Hypothyroidism, unspecified; I25.2 Old myocardial infarction; J45.909 Unspecified asthma, uncomplicated; Z88.1 Allergy status to other antibiotic agents
CPT/HCPCS: 36415; 71045-TC-FY; 80048; 82150; 82550; 83036; 84484; 85025; 96374; 96375; 99282-25; G0378; J7030

== ENCOUNTER 2019-02-02 11:48 | Emergency (ER) | payer BC ==
[2019-02-02 12:01] VITALS: BP 139/82; PULSE 67; TEMP 98.5; BMI 20.5
--- NOTE | 2019-02-02 12:41 | PDOC ---
History of Present Illness - General Chief Complaint: Respiratory Stated Complaint: URI FOR 8 DAYS NOT ANY BETER AFTER COURSE OF ANT Time Seen by Provider: 02/02/19 12:05 History Source: Patient (78 y/o female walked in complaining of congestion, sinuses and nos with partial improvement after a course of antibiotics, just finished few days ago.She had the flu vaccine, afebrile) Past History - Past Medical History Allergies/Adverse Reactions: Allergies Allergy/AdvReac Type Severity Reaction Status Date / Time ciprofloxacin HCl Allergy Severe Rash Verified 02/02/19 11:52 [From Cipro] midazolam HCl [From Versed] AdvReac Severe Nausea Verified 02/02/19 11:52 Home Medications: Ambulatory Orders Atorvastatin Ca [Lipitor] 10 mg PO HS 04/28/16 Levothyroxine [Synthroid -] 75 mcg PO DAILY 04/28/16 Sertraline HCl [Zoloft -] 12.5 mg PO DAILY 08/07/18 Cetirizine HCl [Zyrtec -] 10 mg PO DAILY #7 tablet 02/02/19 Anemia: No Asthma: Yes Cancer: No Cardiac Disorders: Yes ([place] 1995 "NO HEART DAMAGE") CVA: No COPD: Yes CHF: No Dementia: No Diabetes: No GI Disorders: Yes (GERD) Disorders: No HTN: No Hypercholesterolemia: Yes Kidney Stones: Yes Liver Disease: (LFT'S ELEVATED DUE TO CRESTOR (PT HOSPITALIZED 12/2011) CRESTOR STOPPED) Seizures: No Thyroid Disease: Yes (HYPOTHROIDISM) - Surgical History Abdominal Surgery: Yes Appendectomy: No Cardiac Surgery: Yes (ANGIOPLASTY 1997) Cholecystectomy: Yes () Lung Surgery: No Neurologic Surgery: No Orthopedic Surgery: No - Immunization History Td Vaccination: (UNKNOWN) - Suicide/Smoking/Psychosocial Hx Smoking Status: Yes Smoking History: Never smoked Years of Tobacco Use: 50 Have you smoked in the past 12 months: No Number of Cigarettes Smoked Daily: 0 If you are a former smoker, when did you quit?: 22 YEARS Information on smoking cessation initiated: No Hx Alcohol Use: No Drug/Substance Use Hx: No Substance Use Type: None Hx Substance Use Treatment: No *Physical Exam - Vital Signs Last Vital Signs Temp Pulse Resp BP Pulse Ox 98.5 F 67 16 139/82 97 02/02/19 11:51 02/02/19 11:51 02/02/19 11:51 02/02/19 11:51 02/02/19 11:51 *DC/Admit/Observation/Transfer Diagnosis at time of Disposition: Nasal sinus congestion COPD (chronic obstructive pulmonary disease) Qualifiers: COPD type: unspecified COPD Qualified Code(s): J44.9 - Chronic obstructive pulmonary disease, unspecified - Discharge Dispostion Disposition: HOME Condition at time of disposition: Stable Decision to Admit order: No - Referrals Referrals: Tom Lao MD [Primary Care Provider] - - Patient Instructions Printed Discharge Instructions: Sinus Headache Additional Instructions: Continue medications as advised Take Zyrtec once daily. If no improvement follow up with your doctor - Post Discharge Activity
== END 2019-02-02 12:53 | disposition home or self-care (01) ==
LOC: FER 11:48
DX: R09.81 Nasal congestion (principal); J44.9 Chronic obstructive pulmonary disease, unspecified; I25.2 Old myocardial infarction; K21.9 Gastro-esophageal reflux disease without esophagitis; E78.00 Pure hypercholesterolemia, unspecified; K03.9 Disease of hard tissues of teeth, unspecified; Z98.61 Coronary angioplasty status
CPT/HCPCS: 99282-25

== ENCOUNTER 2019-03-12 10:12 | Emergency (ER) | payer BC ==
[2019-03-12 10:32] VITALS: BMI 20.9
[2019-03-12] MEDS ORDERED: PANTOPRAZOLE SODIUM 40 MG in SODIUM CHLORIDE 100 ML IVPB ONE (10:44)
[2019-03-12] MEDS ORDERED: ONDANSETRON 4 MG/2 ML VIAL IVPB ONE (10:44)
[2019-03-12] MEDS ORDERED: SODIUM CHLORIDE 1,000 ML IV STA (10:44)
[2019-03-12] MEDS ORDERED: ACETAMINOPHEN 1000 MG/100 ML VIAL (NON FORMULARY) IVPB ONE (10:44)
[2019-03-12] MEDS ORDERED: MAG HYDROX/AL HYDROX/SIMETH 30 ML UNIT-DOSE CUP PO ONE (10:45)
[2019-03-12] MEDS ORDERED: ACETAMINOPHEN INJECTION 100 ML IVPB ONE (10:53)
[2019-03-12] MEDS ORDERED: FAMOTIDINE 20 MG/50 ML IVPB 0 MG/0 ML MG IVPB ONE (10:54)
[2019-03-12] MEDS ORDERED: MAG HYDROX/AL HYDROX/SIMETH 30 ML UNIT-DOSE CUP ONE (10:54)
[2019-03-12] MEDS ORDERED: ONDANSETRON 4 MG/2 ML VIAL ONE (10:54)
[2019-03-12] MEDS ORDERED: PANTOPRAZOLE SODIUM 40 MG VIAL ONE (10:55)
[2019-03-12 11:16] LABS: BASO % 1.6 % (0-2.0); EOS % 0.8 % (0-4.5); HEMATOCRIT 44.1 % (32.4-45.2); HEMOGLOBIN 14.8 GM/dl (10.7-15.3); MCH 28.4 pg (25.7-33.7); MCHC 33.6 g/dl (32.0-36.0); MEAN CELL VOLUME 84.6 fl (80-96); MEAN PLT VOLUME 7.6 fl (7.5-11.1); MONO % 6.3 % (3.8-10.2); NEUT % 74.3 % (42.8-82.8); RBC 5.21 M/mm3 (3.60-5.2); RDW 12.5 % (11.6-15.6); WHITE BLOOD COUNT 6.4 K/mm3 (4.0-10.8)
[2019-03-12 11:19] LABS: PLATELET COUNT 318 K/MM3 (134-434)
--- NOTE | 2019-03-12 11:26 | PDOC ---
History of Present Illness - General Chief Complaint: Nausea/Vomiting Stated Complaint: N/V Time Seen by Provider: 03/12/19 10:13 - History of Present Illness Initial Comments: 03/12/19 11:21 78 F with h/o gastritis, GERD, CAD, [place] (1993), HLD, Hypothyroidism, Depression, presenting to ED with epigastric pain, N+V. Pt states that 3 days ago, she ate tacos and subsequently developed epigastric pain associated with several episodes of nausea and vomiting. Pt reports vomiting about 6 times that night. Over the past 2 days, she has not had any episodes of vomiting but reports persistent nausea and epigastric burning, which she states feels like her gastritis. She did not take anything other than zofran and one zantac today, with no relief. Pt denies any CP/SOB. Denies lower abdominal pain. Denies dysuria/flank pain. Denies F/C. Pt had diarrhea the day prior to eating the tacos but denies any recent episodes. No BRBPR or dark stools. Denies hematemesis or coffee grounds emesis. Past History - Past Medical History Allergies/Adverse Reactions: Allergies Allergy/AdvReac Type Severity Reaction Status Date / Time ciprofloxacin HCl Allergy Severe Rash Verified 03/12/19 10:13 [From Cipro] midazolam HCl [From Versed] AdvReac Severe Nausea Verified 03/12/19 10:13 Home Medications: Ambulatory Orders Atorvastatin Ca [Lipitor] 10 mg PO HS 04/28/16 Levothyroxine [Synthroid -] 75 mcg PO DAILY 04/28/16 Sertraline HCl [Zoloft -] 12.5 mg PO DAILY 08/07/18 Cetirizine HCl [Zyrtec -] 10 mg PO DAILY #7 tablet 02/02/19 Pantoprazole Sodium [Protonix] 40 mg PO DAILY #30 tablet. 03/12/19 Anemia: No Asthma: Yes Cancer: No Cardiac Disorders: Yes ([place] 1995 "NO HEART DAMAGE") CVA: No COPD: Yes CHF: No Dementia: No Diabetes: No GI Disorders: Yes (GERD) Disorders: No HTN: No Hypercholesterolemia: Yes Kidney Stones: Yes Liver Disease: (LFT'S ELEVATED DUE TO CRESTOR (PT HOSPITALIZED 12/2011) CRESTOR STOPPED) Seizures: No Thyroid Disease: Yes (HYPOTHROIDISM) - Surgical History Abdominal Surgery: Yes Appendectomy: No Cardiac Surgery: Yes (ANGIOPLASTY 1997) Cholecystectomy: Yes () Lung Surgery: No Neurologic Surgery: No Orthopedic Surgery: No - Immunization History Td Vaccination: (UNKNOWN) - Suicide/Smoking/Psychosocial Hx Smoking Status: Yes Smoking History: Former smoker Years of Tobacco Use: 50 Have you smoked in the past 12 months: No Number of Cigarettes Smoked Daily: 0 If you are a former smoker, when did you quit?: 22 YEARS Information on smoking cessation initiated: No Hx Alcohol Use: No Drug/Substance Use Hx: No Substance Use Type: None Hx Substance Use Treatment: No Review of Systems - Review of Systems Comments:: 03/12/19 11:24 "GENERAL/CONSTITUTIONAL: No fever or chills. No weakness. HEAD, EYES, EARS, NOSE AND THROAT: No change in vision. No ear pain or discharge. No sore throat. CARDIOVASCULAR: No chest pain, no shortness of breath, no loss of consciousness RESPIRATORY: No cough, wheezing, or hemoptysis. GASTROINTESTINAL: + epigastric pain + nausea + vomiting GENITOURINARY: No dysuria, frequency, or change in urination. MUSCULOSKELETAL: No joint or muscle swelling or pain. No neck or back pain. SKIN: No rash NEUROLOGIC: No vertigo, no change in strength/sensation. ENDOCRINE: No increased thirst. No abnormal weight change. HEMATOLOGIC/LYMPHATIC: No anemia, easy bleeding, or history of blood clots. ALLERGIC/IMMUNOLOGIC: No hives or skin allergy. *Physical Exam - Vital Signs Last Vital Signs Temp Pulse Resp BP Pulse Ox 98.3 F 70 16 121/82 97 03/12/19 10:13 03/12/19 10:13 03/12/19 10:13 03/12/19 10:13 03/12/19 10:13 - Physical Exam Comments: 03/12/19 11:24 "GENERAL: Awake, alert, and fully oriented, in no acute distress. HEAD: No signs of trauma EYES: PERRLA, EOMI, sclera anicteric, conjunctiva clear ENT: Auricles normal inspection, hearing grossly normal, nares patent, oropharynx clear without exudates. Moist mucosa NECK: Nontender, no stepoffs, Normal ROM, supple, no lymphadenopathy, JVD, or masses LUNGS: Breath sounds equal, clear to auscultation bilaterally. No wheezes, and no crackles HEART: Regular rate and rhythm, normal S1 and S2, no murmurs, rubs or gallops ABDOMEN: + epigastric TTP, normoactive bowel sounds. No guarding, no rebound. No masses EXTREMITIES: Normal range of motion, no edema. No clubbing or cyanosis. No cords, erythema, or tenderness NEUROLOGICAL: Cranial nerves II through XII intact. 5/5 strength and sensation in all extremities, Normal speech, normal gait, normal cerebellar function SKIN: Warm, Dry, normal turgor, no rashes or lesions noted. Heart Score/ECG Review - ECG Impressions Comment:: 03/12/19 11:24 NSR, no GRETCHEN/STDs, no TWIs, normal intervals, rate 54 ED Treatment Course - LABORATORY CBC & Chemistry Diagram: 03/12/19 10:30 03/12/19 10:30 - ADDITIONAL ORDERS Additional order review: 03/12/19 10:30 RBC 5.21 H MCV 84.6 MCHC 33.6 RDW 12.5 MPV 7.6 Neutrophils % 74.3 Lymphocytes % 17.0 Monocytes % 6.3 Eosinophils % 0.8 Basophils % 1.6 - Medications Given in the ED: ED Medications Discontinued Medications Generic Name Dose Route Start Last Admin Trade Name Freq PRN Reason Stop Dose Admin Acetaminophen 1,000 mg 03/12/19 10:44 03/12/19 11:10 Ofirmev Injection - IVPB 03/12/19 10:45 1,000 mg ONCE ONE Administration Al Hydroxide/Mg Hydroxide 30 ml 03/12/19 10:45 03/12/19 11:10 Mylanta Oral Suspension - PO 03/12/19 10:46 30 ml ONCE ONE Administration Pantoprazole Sodium 40 mg/ 100 mls @ 200 mls/hr 03/12/19 10:44 03/12/19 11:03 Sodium Chloride IVPB 03/12/19 11:13 200 mls/hr ONCE ONE Administration Ondansetron HCl 4 mg 03/12/19 10:44 03/12/19 11:03 Zofran Injection IVPB 03/12/19 10:45 4 mg ONCE ONE Administration Medical Decision Making - Medical Decision Making 03/12/19 11:25 78 F with epigastric pain and nausea/vomiting. Suspect gastritis as seen on previous EGD. Pt with no CP/SOB to suggest ACS and normal EKG today. Pt with no RUQ tenderness, prior cholecystectomy. No lower abdominal tenderness to suggest appy/colitis/diverticulitis. - Labs, trop, lipase - GI cocktail, IVF 03/12/19 12:28 Labs wnl Pt reassessed - feels much better Now able to tolerate PO juice and crackers without pain or vomiting. Pt is well appearing, with normal vitals. Clinically stable for DC at this time. I discussed the physical exam findings, ancillary test results and final diagnoses with the patient. I answered all of the patient's questions. The patient was satisfied with the care received and felt comfortable with the discharge plan and treatment plan. The patient agrees to follow up with the primary care physician within 24-72 hours. *DC/Admit/Observation/Transfer Diagnosis at time of Disposition: Nausea and vomiting, Abdominal pain, Gastritis - Discharge Dispostion Condition at time of disposition: Stable - Prescriptions Prescriptions: Pantoprazole Sodium [Protonix] 40 mg PO DAILY #30 tablet.dr - Referrals Referrals: Tom Lao MD [Primary Care Provider] - Juan Sanchez MD [Staff Physician] - - Patient Instructions Printed Discharge Instructions: DI for Gastritis Additional Instructions: Take the protonix every day as prescribed. Follow up with Dr. Sanchez within 48 hours for further evaluation of your abdominal pain. If you experience worsening pain, nausea, vomiting, fevers, or any other concerning symptoms, return to the ER immediately. - Post Discharge Activity - Attestations Physician Attestion: 03/12/19 11:40 I, Dr. Brian Hogan MD, attest that this document has been prepared under my direction and personally reviewed by me in its entirety. I further attest, that it accurately reflects all work, treatment, procedures and medical decision -making performed by me.
[2019-03-12 11:27] LABS: ALBUMIN 4.1 g/dl (3.4-5.0); BILIRUBIN,TOTAL 1.2 mg/dl (0.2-1); CALCIUM 9.2 mg/dl (8.5-10); CREATININE 0.8 mg/dl (0.55-1.3); POTASSIUM 4.1 mmol/L (3.5-5.1)
[2019-03-12 12:51] VITALS: BP 115/78; PULSE 60; TEMP 98.2
--- NOTE | 2019-03-12 16:07 | EKG ---
Test Reason : Blood Pressure : / mmHG Vent. Rate : 054 BPM Atrial Rate : 054 BPM P-R Int : 190 ms QRS Dur : 074 ms QT Int : 410 ms P-R-T Axes : 065 -20 065 degrees QTc Int : 388 ms SINUS BRADYCARDIA OTHERWISE NORMAL ECG WHEN COMPARED WITH ECG OF 21-SEP-2018 08:49, NO SIGNIFICANT CHANGE WAS FOUND Confirmed by RAIMUNDO SADLER MD ([id number]) on 03/12/2019 4:07:25 PM Referred By: RADHA CIFUENTES Confirmed By:RAIMUNDO SADLER MD
== END 2019-03-12 12:58 | disposition home or self-care (01) ==
LOC: FER 10:12
PROC: 3E033NZ Introduction of Analgesics, Hypnotics, Sedatives into Peripheral Vein, Percutaneous Approach (ICD-10-PCS; principal; 2019-03-12)
PROC: 3E033GC Introduction of Other Therapeutic Substance into Peripheral Vein, Percutaneous Approach (ICD-10-PCS; 2019-03-12)
PROC: 3E0337Z Introduction of Electrolytic and Water Balance Substance into Peripheral Vein, Percutaneous Approach (ICD-10-PCS; 2019-03-12)
DX: R11.2 Nausea with vomiting, unspecified (principal); R10.9 Unspecified abdominal pain; K52.9 Noninfective gastroenteritis and colitis, unspecified; I25.10 Atherosclerotic heart disease of native coronary artery without angina pectoris; I25.2 Old myocardial infarction; E03.9 Hypothyroidism, unspecified; F32.9 Major depressive disorder, single episode, unspecified; K21.9 Gastro-esophageal reflux disease without esophagitis
CPT/HCPCS: 36415; 80053; 82550; 83690; 84484; 85025; 93005; 99284-25; J0131; J7030

== ENCOUNTER 2019-03-27 16:58 | Emergency (ER) | payer BC ==
[2019-03-27 17:27] VITALS: BP 135/76; PULSE 57; TEMP 98.9; BMI 20.9
[2019-03-27] MEDS ORDERED: FAMOTIDINE 20 MG/50 ML IVPB 20 MG/50 ML MG IVPB ONE ×2 (17:55→18:12)
[2019-03-27] MEDS ORDERED: ONDANSETRON 4 MG/2 ML VIAL IVPUSH ONE (17:55)
[2019-03-27] MEDS ORDERED: SODIUM CHLORIDE 0.9% 500 ML INFUS.BAG IV ONE (17:55)
[2019-03-27] MEDS ORDERED: ONDANSETRON 4 MG/2 ML VIAL ONE ×2 (18:12→19:24)
[2019-03-27 18:22] LABS: BASO % 1.5 % (0-2.0); EOS % 0.6 % (0-4.5); HEMATOCRIT 43.3 % (32.4-45.2); HEMOGLOBIN 14.2 GM/dl (10.7-15.3); LYMPH % 10.6 % (8-40); MCH 27.7 pg (25.7-33.7); MCHC 32.8 g/dl (32.0-36.0); MEAN CELL VOLUME 84.3 fl (80-96); MEAN PLT VOLUME 7.6 fl (7.5-11.1); MONO % 6.6 % (3.8-10.2); NEUT % 80.7 % (42.8-82.8); PLATELET COUNT 328 K/MM3 (134-434); RBC 5.14 M/mm3 (3.60-5.2); RDW 12.9 % (11.6-15.6); WHITE BLOOD COUNT 10.1 K/mm3 (4.0-10.8)
[2019-03-27 18:40] LABS: ALBUMIN 4.1 g/dl (3.4-5.0); BILIRUBIN,TOTAL 1.5 mg/dl (0.2-1); CALCIUM 9.3 mg/dl (8.5-10); CREATININE 0.9 mg/dl (0.55-1.3); POTASSIUM 4.4 mmol/L (3.5-5.1); TOT PROT 6.7 g/dl (6.4-8.2)
--- NOTE | 2019-03-27 18:55 | PDOC ---
Documentation entered by vYette Collins SCRIBE, acting as scribe for Yu Marsh MD. Yu Marsh MD: This documentation has been prepared by the isabelibDennis oswald Natalie, SCRIBE, under my direction and personally reviewed by me in its entirety. I confirm that the documentation accurately reflects all work, treatment, procedures, and medical decision making performed by me. History of Present Illness - General Chief Complaint: Nausea/Vomiting Stated Complaint: VOMITING History Source: Patient Exam Limitations: No Limitations - History of Present Illness Initial Comments: 03/27/19 18:15 The patient is a 78-year-old female, with a past medical history of gastritis, GERD, CAD, [place] (1993), HLD, Hypothyroidism, Depression, presenting to ED with 1 day of epigastric pain, nausea, and vomiting. Patient states that this feels similar to her previous episodes of gastritis. She has taken zantac and protonix with minimal relief of her symptoms. The patient is unable to tolerate PO and cannot lie flat due to epigastric burning. She reports having 6 episodes of vomiting yesterday, but none today. She denies any BRBPR or dark stools. Denies any hematemesis or coffee ground emesis. GI: Dr. Sanchez Past History - Past Medical History Allergies/Adverse Reactions: Allergies Allergy/AdvReac Type Severity Reaction Status Date / Time ciprofloxacin HCl Allergy Severe Rash Verified 03/27/19 17:15 [From Cipro] midazolam HCl [From Versed] AdvReac Severe Nausea Verified 03/27/19 17:15 Home Medications: Ambulatory Orders Atorvastatin Ca [Lipitor] 10 mg PO HS 04/28/16 Levothyroxine [Synthroid -] 75 mcg PO DAILY 04/28/16 Sertraline HCl [Zoloft -] 12.5 mg PO DAILY 08/07/18 Cetirizine HCl [Zyrtec -] 10 mg PO DAILY #7 tablet 02/02/19 Ondansetron [Zofran *Odt*] 8 mg SL BID PRN #14 od.tablet 03/12/19 Pantoprazole Sodium [Protonix] 40 mg PO DAILY #30 tablet. 03/12/19 Anemia: No Asthma: Yes Cancer: No Cardiac Disorders: Yes ([place] 1995 "NO HEART DAMAGE") CVA: No COPD: Yes CHF: No Dementia: No Diabetes: No GI Disorders: Yes (GERD) Disorders: No HTN: No Hypercholesterolemia: Yes Kidney Stones: Yes Liver Disease: (LFT'S ELEVATED DUE TO CRESTOR (PT HOSPITALIZED 12/2011) CRESTOR STOPPED) Seizures: No Thyroid Disease: Yes (HYPOTHROIDISM) - Surgical History Abdominal Surgery: Yes Appendectomy: No Cardiac Surgery: Yes (ANGIOPLASTY 1997) Cholecystectomy: Yes (1980S) Lung Surgery: No Neurologic Surgery: No Orthopedic Surgery: No - Immunization History Td Vaccination: (UNKNOWN) - Suicide/Smoking/Psychosocial Hx Smoking Status: Yes Smoking History: Former smoker Years of Tobacco Use: 50 Have you smoked in the past 12 months: No Number of Cigarettes Smoked Daily: 0 If you are a former smoker, when did you quit?: 22 YEARS Hx Alcohol Use: No Drug/Substance Use Hx: No Substance Use Type: None Hx Substance Use Treatment: No Review of Systems - Review of Systems Able to Perform ROS?: Yes Comments:: 03/27/19 18:15 GENERAL/CONSTITUTIONAL: No fever or chills. No weakness. HEAD, EYES, EARS, NOSE AND THROAT: No change in vision. No ear pain or discharge. No sore throat. CARDIOVASCULAR: No chest pain or shortness of breath. RESPIRATORY: No cough, wheezing, or hemoptysis. GASTROINTESTINAL: (+)Epigastric pain/burning, nausea and vomiting. No diarrhea or constipation. GENITOURINARY: No dysuria, frequency, or change in urination. MUSCULOSKELETAL: No joint or muscle swelling or pain. No neck or back pain. SKIN: No rash NEUROLOGIC: No headache, vertigo, loss of consciousness, or change in strength/ sensation. ENDOCRINE: No increased thirst. No abnormal weight change. HEMATOLOGIC/LYMPHATIC: No anemia, easy bleeding, or history of blood clots. ALLERGIC/IMMUNOLOGIC: No hives or skin allergy. *Physical Exam - Vital Signs Last Vital Signs Temp Pulse Resp BP Pulse Ox 98.9 F 57 L 20 135/76 98 03/27/19 16:59 03/27/19 16:59 03/27/19 16:59 03/27/19 16:59 03/27/19 16:59 - Physical Exam Comments: 03/27/19 18:16 GENERAL: Awake, alert, and fully oriented, in no acute distress HEAD: No signs of trauma EYES: PERRLA, EOMI, sclera anicteric, conjunctiva clear ENT: Auricles normal inspection, hearing grossly normal, nares patent, oropharynx clear without exudates. Moist mucosa NECK: Normal ROM, supple, no lymphadenopathy, JVD, or masses LUNGS: Breath sounds equal, clear to auscultation bilaterally. No wheezes, and no crackles HEART: Regular rate and rhythm, normal S1 and S2, no murmurs, rubs or gallops ABDOMEN: Soft, nontender, normoactive bowel sounds. No guarding, no rebound. No masses EXTREMITIES: Normal range of motion, no edema. No clubbing or cyanosis. No cords, erythema, or tenderness NEUROLOGICAL: Cranial nerves II through XII grossly intact. Normal speech. SKIN: Warm, Dry, normal turgor, no rashes or lesions noted. ED Treatment Course - LABORATORY CBC & Chemistry Diagram: 03/27/19 18:13 03/27/19 18:13 - ADDITIONAL ORDERS Additional order review: 03/27/19 18:13 RBC 5.14 MCV 84.3 MCHC 32.8 RDW 12.9 MPV 7.6 Neutrophils % 80.7 Lymphocytes % 10.6 Monocytes % 6.6 Eosinophils % 0.6 Basophils % 1.5 - Medications Given in the ED: ED Medications Discontinued Medications Generic Name Dose Route Start Last Admin Trade Name Kayla PRN Reason Stop Dose Admin Famotidine/Sodium Chloride 20 mg in 50 mls @ 100 mls/hr 03/27/19 17:55 18:16 Pepcid 20 Mg Premixed Ivpb - IVPB 03/27/19 18:24 100 mls/hr ONCE ONE Administration Ondansetron HCl 4 mg 03/27/19 17:55 03/27/19 18:16 Zofran Injection IVPUSH 03/27/19 17:56 4 mg ONCE ONE Administration Sodium Chloride 1,000 ml 03/27/19 17:55 03/27/19 18:16 Normal Saline - IV 03/27/19 17:56 1,000 ml ONCE ONE Administration Medical Decision Making - Medical Decision Making 03/27/19 18:54 pt presents to the ED complaining of nausea and vomiting similar to previous episodes. Extensive work up in the past, including CT and endoscopy, has been negative except for gastritis. Will treat with pepcid and zofran and reassess.
--- NOTE | 2019-03-27 19:19 | PDOC ---
*Physical Exam - Vital Signs Last Vital Signs Temp Pulse Resp BP Pulse Ox 98.9 F 57 L 20 135/76 98 03/27/19 16:59 03/27/19 16:59 03/27/19 16:59 03/27/19 16:59 03/27/19 16:59 ED Treatment Course - LABORATORY CBC & Chemistry Diagram: 03/27/19 18:13 03/27/19 18:13 - ADDITIONAL ORDERS Additional order review: Laboratory Results 03/27/19 03/27/19 18:13 18:13 Sodium 135 L Potassium 4.4 Chloride 101 Carbon Dioxide 25 Anion Gap 9 BUN 18.0 Creatinine 0.9 Est GFR (CKD-EPI)AfAm 70.98 Est GFR (CKD-EPI)NonAf 61.24 Random Glucose 99 Calcium 9.3 Total Bilirubin 1.5 H AST 25 ALT 12 L Alkaline Phosphatase 74 Creatine Kinase 92 Troponin I < 0.03 Total Protein 6.7 Albumin 4.1 03/27/19 18:13 RBC 5.14 MCV 84.3 MCHC 32.8 RDW 12.9 MPV 7.6 Neutrophils % 80.7 Lymphocytes % 10.6 Monocytes % 6.6 Eosinophils % 0.6 Basophils % 1.5 - Medications Given in the ED: ED Medications Discontinued Medications Generic Name Dose Route Start Last Admin Trade Name Freq PRN Reason Stop Dose Admin Famotidine/Sodium Chloride 20 mg in 50 mls @ 100 mls/hr 03/27/19 17:55 18:16 Pepcid 20 Mg Premixed Ivpb - IVPB 03/27/19 18:24 100 mls/hr ONCE ONE Administration Ondansetron HCl 4 mg 03/27/19 17:55 03/27/19 18:16 Zofran Injection IVPUSH 03/27/19 17:56 4 mg ONCE ONE Administration Sodium Chloride 1,000 ml 03/27/19 17:55 03/27/19 18:16 Normal Saline - IV 03/27/19 17:56 1,000 ml ONCE ONE Administration Progress Note - Progress Note Progress Note: Care of this patient received from Dr. Marsh After 1 L normal saline and 4 mg of Zofran IV, patient states that nausea is still present (although somewhat improved from presentation) Additional 4 mg Zofran given IVPB. After second dose of Zofran, patient reports resolution of nausea and was able to drink 8 ounces of water without difficulty. Patient will be discussed charged with instructions to continue clear liquids and advance diet as tolerated. Protonix refill had been prescribed when she was seen here 2 weeks ago. Patient states that she filled the prescription; she should take this daily and follow-up with drafter refrigeration within the next week. Also, she should follow-up with her general medical doctor. She should return to the emergency room if she has recurrent nausea/vomiting or experiences abdominal pain/fever *DC/Admit/Observation/Transfer Diagnosis at time of Disposition: Nausea and vomiting Qualifiers: Vomiting type: unspecified Vomiting Intractability: non-intractable Qualified Code(s): R11.2 - Nausea with vomiting, unspecified Gastritis Qualifiers: Gastritis type: unspecified gastritis Chronicity: chronic Gastritis bleeding: without bleeding Qualified Code(s): K29.50 - Unspecified chronic gastritis without bleeding - Discharge Dispostion Disposition: HOME Condition at time of disposition: Stable - Referrals - Patient Instructions Printed Discharge Instructions: DI for Vomiting -- Adult Additional Instructions: Clear liquids , advance diet cautiously Continue daily Protonix as prescribed Follow-up with [facility] refrig[facility] within the next 3-4 days Return to ER if you have persistent nausea/vomiting/Esequiel pain/fever - Post Discharge Activity
[2019-03-27] MEDS ORDERED: ONDANSETRON 4 MG/2 ML VIAL IVPB ONE (19:22)
--- NOTE | 2019-03-28 11:33 | EKG ---
Test Reason : Blood Pressure : / mmHG Vent. Rate : 052 BPM Atrial Rate : 052 BPM P-R Int : 168 ms QRS Dur : 082 ms QT Int : 444 ms P-R-T Axes : 080 -32 063 degrees QTc Int : 412 ms SINUS BRADYCARDIA LEFT AXIS DEVIATION CANNOT RULE OUT ANTERIOR INFARCT , AGE UNDETERMINED ABNORMAL ECG WHEN COMPARED WITH ECG OF 12-MAR-2019 10:58, NO SIGNIFICANT CHANGE WAS FOUND Confirmed by JJ FRANCIS, ROSARIO ([id number]) on 03/28/2019 11:33:13 AM Referred By: ESE BARNES Confirmed By:ROSARIO GARDNER MD
== END 2019-03-27 20:24 | disposition home or self-care (01) ==
LOC: FER 16:58
PROC: 3E033GC Introduction of Other Therapeutic Substance into Peripheral Vein, Percutaneous Approach (ICD-10-PCS; principal; 2019-03-27)
PROC: 3E0337Z Introduction of Electrolytic and Water Balance Substance into Peripheral Vein, Percutaneous Approach (ICD-10-PCS; 2019-03-27)
DX: K29.50 Unspecified chronic gastritis without bleeding (principal); I25.10 Atherosclerotic heart disease of native coronary artery without angina pectoris; I25.2 Old myocardial infarction; E78.5 Hyperlipidemia, unspecified; E03.9 Hypothyroidism, unspecified; F32.9 Major depressive disorder, single episode, unspecified
CPT/HCPCS: 36415; 80053; 82550; 84484; 85025; 93005; 99283-25

== ENCOUNTER 2019-05-04 19:41 | Emergency (ER) | payer BC ==
[2019-05-04 20:08] VITALS: BP 113/66; PULSE 64; TEMP 98.3; BMI 17.2
--- NOTE | 2019-05-04 23:25 | PDOC ---
Documentation entered by Sheila Ariza SCRIBE, acting as scribe for Anuj Solorzano MD. Anuj Solorzano MD: This documentation has been prepared by the isabelibeTo Lincy, SCRIBE, under my direction and personally reviewed by me in its entirety. I confirm that the documentation accurately reflects all work, treatment, procedures, and medical decision making performed by me. History of Present Illness - General Chief Complaint: Injury Stated Complaint: FELL GETTING OUT OF TUB AND FELL LAST NIGHT Time Seen by Provider: 05/04/19 19:49 History Source: Patient, Family Exam Limitations: No Limitations - History of Present Illness Initial Comments: 05/04/19 21:04 The patient is a 78-year-old female with a past medical history significant for asthma, [place], HLD, and diverticulosis, who presents to the emergency department for weakness and dizziness. The patient reports on Thursday around 5:00 am she got up from sleep to go to the bathroom when she had an episode of dizziness leading to a fall. The patient reports sustaining injuries to her head, neck, right elbow, and buttocks. Denies LOC. Patients sister reports, the patient called for her to help, when she saw the patient she was awake and alert, Denies LOC. The sister states she let the patient stay down for about 5 minutes before assisting her onto the bed. The daughter reports the patient went back to sleep and slept for a while. Denies taking Lorazepam prior to the fall. Today , the patient reports she was in the bathtub, when she felt weak, right more than left, with difficulty getting out of the tub. The family reports the patient has been disoriented all day today. Denies fever, chills, or cough. The patient was recently admitted to [facility] (04/30-05/02, and 3 weeks ago) for abdominal discomfort, loss of appetite secondary to nausea and vomiting , with weight loss from 119 lbs to 100 lbs. The family reports the patient had a negative CT scan, blood works, MRA scan during both hospitalizations. During the recent stay, the patients medication Zoloft dose was changed from half a pill to the whole tablet. The patient reports having dizziness after taking that medication. The family reports the patient has been eating well since the discharge. Allergies: ciprofloxacin HCl and midazolam HCl Social history: Lives with daughter. PCP: Dr. Cristina Garcia (appointment May 06) GI: Dr. Castellano (appointment May 17) Past History - Past Medical History Allergies/Adverse Reactions: Allergies Allergy/AdvReac Type Severity Reaction Status Date / Time ciprofloxacin HCl Allergy Severe Rash Verified 05/04/19 19:54 [From Cipro] midazolam HCl [From Versed] AdvReac Severe Nausea Verified 05/04/19 19:54 Home Medications: Ambulatory Orders Atorvastatin Ca [Lipitor] 10 mg PO HS 04/28/16 Levothyroxine [Synthroid -] 75 mcg PO DAILY 04/28/16 Sertraline HCl [Zoloft -] 25 mg PO DAILY 08/07/18 Cetirizine HCl [Zyrtec -] 10 mg PO DAILY #7 tablet 02/02/19 Lansoprazole [Prevacid] 15 mg PO DAILY 05/04/19 Meclizine HCl [Antivert] 1 tab PO TID PRN #20 tablet 05/04/19 Omeprazole Magnesium [Prilosec Otc] 20 mg PO DAILY 05/04/19 Anemia: No Asthma: Yes Cancer: No Cardiac Disorders: Yes ([place] 1995 "NO HEART DAMAGE") CVA: No COPD: Yes CHF: No Dementia: No Diabetes: No GI Disorders: Yes (GERD) Disorders: No HTN: No Hypercholesterolemia: Yes Kidney Stones: Yes Liver Disease: (LFT'S ELEVATED DUE TO CRESTOR (PT HOSPITALIZED 12/2011) CRESTOR STOPPED) Seizures: No Thyroid Disease: Yes (HYPOTHROIDISM) - Surgical History Abdominal Surgery: Yes Appendectomy: No Cardiac Surgery: Yes (ANGIOPLASTY 1997) Cholecystectomy: Yes () Lung Surgery: No Neurologic Surgery: No Orthopedic Surgery: No - Immunization History Td Vaccination: (UNKNOWN) - Psycho Social/Smoking Cessation Hx Smoking Status: Yes Smoking History: Former smoker Years of Tobacco Use: 50 Have you smoked in the past 12 months: No Number of Cigarettes Smoked Daily: 0 If you are a former smoker, when did you quit?: 22 YEARS Hx Alcohol Use: No Drug/Substance Use Hx: No Substance Use Type: None Hx Substance Use Treatment: No Review of Systems - Review of Systems Able to Perform ROS?: Yes Comments:: 05/04/19 21:04 Review of system: CONSTITUTIONAL: +weakness. Absent: fever, chills, diaphoresis, malaise, loss of appetite HEENT: Absent: rhinorrhea, nasal congestion, throat pain, throat swelling, difficulty swallowing, mouth swelling, ear pain, eye pain, visual Changes CARDIOVASCULAR: Absent: chest pain, syncope, palpitations, irregular heart rate, lightheadedness , peripheral edema RESPIRATORY: Absent: cough, shortness of breath, dyspnea with exertion, orthopnea, wheezing, stridor, hemoptysis GASTROINTESTINAL: Absent: abdominal pain, abdominal distension, nausea, vomiting, diarrhea, constipation, melena, hematochezia GENITOURINARY: Absent: dysuria, frequency, urgency, hesitancy, hematuria, flank pain, genital pain MUSCULOSKELETAL: +neck pain, elbow pain. Absent: myalgia, arthralgia, joint swelling SKIN: Absent: rash, itching, pallor NEUROLOGIC: +dizziness and headache. Absent: paresthesias, seizure, mental status changes, bladder or bowel incontinence *Physical Exam - Vital Signs Last Vital Signs Temp Pulse Resp BP Pulse Ox 98.3 F 64 16 113/66 96 05/04/19 19:43 05/04/19 19:43 05/04/19 19:43 05/04/19 19:43 05/04/19 19:43 - Physical Exam Comments: 05/04/19 21:05 Physical exam: GENERAL: Well developed, well nourished. Awake, alert and orientedx3. No acute distress. HEENT: Normocephalic, atraumatic. PERRLA, EOMI. No conjunctival pallor. Sclera are non- icteric. Moist mucous membranes. Oropharynx is clear. NECK: Supple. Full ROM. No JVD. Carotid pulses 2+ and symmetric, without bruits. CARDIOVASCULAR: Regular rate and rhythm. No murmurs, rubs, or gallops. PULMONARY: No evidence of respiratory distress. Lungs clear to auscultation bilaterally. No wheezing, rales or rhonchi. ABDOMINAL: Soft. Non-tender. Non-distended. MUSCULOSKELETAL Normal range of motion at all joints. No bony deformities or tenderness. No CVA tenderness. EXTREMITIES: No cyanosis. No clubbing. No edema. No calf tenderness. SKIN: +abrasion on L. elbow without swelling, limited range of motion or other sign of injuries. Warm and dry. Normal capillary refill. No rashes. No jaundice. NEUROLOGICAL: Alert, awake, appropriate. Cranial nerves 2-12 intact.No motor deficits in the face, upper extremities and lower extremities. Normal speech. Gait is normal without ataxia. PSYCHIATRIC: Cooperative. Good eye contact. Appropriate mood and affect. ED Treatment Course - RADIOLOGY Radiology Studies Ordered: Category Date Time Status HEAD CT WITHOUT CONTRAST [CT] Stat CT Scan 05/04/19 20:27 Taken Medical Decision Making - Medical Decision Making 05/04/19 20:51 Patient complains of generalized weakness. Also momentary dizziness when she stands up, with a spinning sensation. She apparently fell due to her "legs giving out" on Thursday, and today was too weak to get out of the bathtub on her own. Her sister is visiting from [place] and providing care and companionship. Sister states that she did not observe any falls and that the patient was in her normal physical and mental condition when she was called. Sister believes that the patient "needs somebody around "and this is a method of getting attention. There was no loss of consciousness and no confusion. There is no physical sign of injury. The patient is standing and ambulating well. She has had 2 recent hospitalizations at [facility], the first approximately 2 weeks ago and the most recent last week, being discharged Thursday. Extensive work-ups including blood work and CT scans/MRI/ MRA as reported by the family, were negative and no explanation for the patient's symptoms was discovered. Physical exam, including vital signs, is normal. There are no neuro deficits. Strength appears adequate and symmetric. Head CT is negative except for possible tiny density vs artifact L parietal, No potential association with symptoms. CT scan was discussed with the patient and relatives. It was agreed to follow- up with Dr. Stanton, neurology, to determine whether further testing is necessary. Meclizine was refilled. Observation by family and follow-up primary physician. Fully ambulatory, stable, and in no pain or other distress at discharge with family. 05/04/19 21:39 05/04/19 23:23 Discharge - Discharge Information Problems reviewed: Yes Clinical Impression/Diagnosis: Generalized weakness Condition: Stable Disposition: HOME - Admission No - Additional Discharge Information Prescriptions: Meclizine HCl [Antivert] 1 tab PO TID PRN #20 tablet PRN Reason: Vertigo - Follow up/Referral Referrals: Susana Garcia [Primary Care Provider] - 1 week Karri Stanton MD [Staff Physician] - 1 week - Patient Discharge Instructions Patient Printed Discharge Instructions: DI for Vertigo, DI for Muscle Weakness Additional Instructions: Follow-up with Dr. Stanton, neurologist, to see if anything further needs to be done for questionable minor abnormality on CT scan - Post Discharge Activity
== END 2019-05-04 21:50 | disposition home or self-care (01) ==
LOC: FER 19:41
DX: R53.1 Weakness (principal); Z88.8 Allergy status to other drugs, medicaments and biological substances; J45.909 Unspecified asthma, uncomplicated; E78.5 Hyperlipidemia, unspecified; K57.92 Diverticulitis of intestine, part unspecified, without perforation or abscess without bleeding; I25.2 Old myocardial infarction; W18.2XXA Fall in (into) shower or empty bathtub, initial encounter; Y93.89 Activity, other specified; Y92.002 Bathroom of unspecified non-institutional (private) residence as the place of occurrence of the external cause
CPT/HCPCS: 70450-TC; 99282-25

== ENCOUNTER 2019-05-05 11:49 | Inpatient (IN) | payer BC, OTHER ==
[2019-05-05 13:03] LABS: EPITHELIAL CELLS FEW /hpf; URINE MUCUS NONE SEEN
[2019-05-05 13:15] LABS: BASO % 2.5 % (0-2.0); EOS % 2.6 % (0-4.5); HEMATOCRIT 44.1 % (32.4-45.2); HEMOGLOBIN 14.5 GM/dl (10.7-15.3); LYMPH % 16.8 % (8-40); MCH 27.8 pg (25.7-33.7); MCHC 32.8 g/dl (32.0-36.0); MEAN CELL VOLUME 84.5 fl (80-96); MEAN PLT VOLUME 7.5 fl (7.5-11.1); MONO % 8.2 % (3.8-10.2); NEUT % 69.9 % (42.8-82.8); PLATELET COUNT 303 K/MM3 (134-434); RBC 5.22 M/mm3 (3.60-5.2); RDW 13.3 % (11.6-15.6)
[2019-05-05 13:28] LABS: INR 1.15 (0.82-1.09); PROTHROMBIN TIME (PATIENT) 12.8 SEC (10.2-13.0)
[2019-05-05 14:52] LABS: ALBUMIN 3.7 g/dl (3.4-5.0); BILIRUBIN,TOTAL 0.7 mg/dL (0.2-1); BLOOD UREA NITROGEN 11.6 mg/dL (7-18); CALCIUM 8.6 mg/dL (8.5-10.1); CREATININE 0.9 mg/dL (0.55-1.3); POTASSIUM 3.5 mmol/L (3.5-5.1); TOT PROT 6.4 g/dl (6.4-8.2)
--- NOTE | 2019-05-05 15:02 | PDOC ---
Attending Attestation - Resident Resident Name: MadelineayalarosanaJordin - ED Attending Attestation I have performed the following: I have examined & evaluated the patient, The case was reviewed & discussed with the resident, I agree w/resident's findings & plan, Exceptions are as noted - HPI HPI: 05/05/19 15:00 78 F with h/o asthma, [place], HLD, and diverticulosis, presenting to ED for repeat head CT. Pt was seen here last night after what she describes as a "slip and fall" in the bathroom last night. Pt was evaluated here and had a head CT done, which showed a questionable hyperdense focus. Pt spoke with her doctor today, who recommended she come to the ED for a repeat scan. Pt's family notes that she is currently at her baseline mentation, though she has had progressive physical decline over the past year. They state she does not eat and seems to be getting weaker, which is why she falls. Pt currently AnOx3, denies any complaints. - Physicial Exam PE: 05/05/19 15:17 "GENERAL: Awake, alert, and fully oriented, in no acute distress. HEAD: No signs of trauma EYES: PERRLA, EOMI, sclera anicteric, conjunctiva clear ENT: Auricles normal inspection, hearing grossly normal, nares patent, oropharynx clear without exudates. Moist mucosa NECK: Nontender, no stepoffs, Normal ROM, supple, no lymphadenopathy, JVD, or masses LUNGS: Breath sounds equal, clear to auscultation bilaterally. No wheezes, and no crackles HEART: Regular rate and rhythm, normal S1 and S2, no murmurs, rubs or gallops ABDOMEN: Soft, nontender, normoactive bowel sounds. No guarding, no rebound. No masses EXTREMITIES: Normal range of motion, no edema. No clubbing or cyanosis. No cords, erythema, or tenderness NEUROLOGICAL: Cranial nerves II through XII intact. 5/5 strength and sensation in all extremities, Normal speech, normal gait, normal cerebellar function SKIN: Warm, Dry, normal turgor, no rashes or lesions noted. - Medical Decision Making 05/05/19 15:18 78 F with fall last night, sent back to ED by her PMD for repeat head CT given abnormal finding. Pt now with no complaints. Has not had any recurrent falls. Family reports progressive physical decline but no acute issues today. - Labs - CT head 05/05/19 15:[address] head unremarkable, no longer shows artifact from yesterday. I discussed with pt and family my concern for her frequent falls and physical weakness. Because she lives alone, I do not believe she is a safe discharge at this time. Pt consents to admission to hospital.
--- NOTE | 2019-05-05 15:43 | EKG ---
Test Reason : Blood Pressure : / mmHG Vent. Rate : 051 BPM Atrial Rate : 051 BPM P-R Int : 192 ms QRS Dur : 076 ms QT Int : 444 ms P-R-T Axes : 013 -28 040 degrees QTc Int : 409 ms SINUS BRADYCARDIA OTHERWISE NORMAL ECG WHEN COMPARED WITH ECG OF 27-MAR-2019 18:20, NO SIGNIFICANT CHANGE WAS FOUND Confirmed by THUY CASTANEDA MD ([id number]) on 05/05/2019 3:42:57 PM Referred By: RADHA CIFUENTES Confirmed By:THUY CASTANEDA MD
--- NOTE | 2019-05-05 15:48 | PDOC ---
History of Present Illness - General Chief Complaint: Altered Mental Status Stated Complaint: NEED 2ND HEAD CT Time Seen by Provider: 05/05/19 11:51 History Source: Patient, Family Exam Limitations: No Limitations - History of Present Illness Initial Comments: 05/05/19 15:50 78 yo female pmh asthma, PA, HLD, and diverticulosis presents to the ED for a repeat head CT. Pt seen yesterday after a mechanical fall while it was dark in the bathroom, head CT neg and pt DC with plan to repeat head CT today after a hyperdense focus was noted in the left parietal lobe. Pt lives alone at home, daughters present who admit concerns for pts ability to care for herself at home. Pt reported to not taking medications correctly, does not eat and have noted questionable behaviour such as attempting to plug in an outlet into water. Pt has had progressive decline in cognitive abilities, was referred to see Neurology however, pt cancelled appointment. Denies CP, palpitations or SOB prior to or after the fall. Denies DUPREE, LOC, N/V, neck pain, new confusion, changes in vision, F/C, abdominal pain or changes in bowel or bladder habits. Pt at baseline mentation AOX3 at this time however family note she seemed confused this am and had hallucinations of animals last night. Past History - Past Medical History Allergies/Adverse Reactions: Allergies Allergy/AdvReac Type Severity Reaction Status Date / Time ciprofloxacin HCl Allergy Severe Rash Verified 05/05/19 11:51 [From Cipro] midazolam HCl [From Versed] AdvReac Severe Nausea Verified 05/05/19 11:51 Home Medications: Ambulatory Orders Atorvastatin Ca [Lipitor] 10 mg PO HS 04/28/16 Levothyroxine [Synthroid -] 75 mcg PO DAILY 04/28/16 Sertraline HCl [Zoloft -] 25 mg PO DAILY 08/07/18 Cetirizine HCl [Zyrtec -] 10 mg PO DAILY #7 tablet 02/02/19 Meclizine HCl [Antivert] 1 tab PO TID PRN #20 tablet 05/04/19 Omeprazole Magnesium [Prilosec Otc] 20 mg PO DAILY 05/04/19 Ranitidine [Zantac -] 150 mg PO DAILY 05/05/19 Anemia: No Asthma: Yes Cancer: No Cardiac Disorders: Yes (PA 1995 "NO HEART DAMAGE") CVA: No COPD: Yes CHF: No Dementia: No Diabetes: No GI Disorders: Yes (GERD) Disorders: No HTN: No Hypercholesterolemia: Yes Kidney Stones: Yes Liver Disease: (LFT'S ELEVATED DUE TO CRESTOR (PT HOSPITALIZED 12/2011) CRESTOR STOPPED) Seizures: No Thyroid Disease: Yes (HYPOTHROIDISM) - Surgical History Abdominal Surgery: Yes Appendectomy: No Cardiac Surgery: Yes (ANGIOPLASTY 1997) Cholecystectomy: Yes () Lung Surgery: No Neurologic Surgery: No Orthopedic Surgery: No - Immunization History Td Vaccination: (UNKNOWN) - Psycho Social/Smoking Cessation Hx Smoking Status: Yes Smoking History: Never smoked Years of Tobacco Use: 50 Have you smoked in the past 12 months: No Number of Cigarettes Smoked Daily: 0 If you are a former smoker, when did you quit?: 22 YEARS Hx Alcohol Use: No Drug/Substance Use Hx: No Substance Use Type: None Hx Substance Use Treatment: No *Physical Exam - Vital Signs Last Vital Signs Temp Pulse Resp BP Pulse Ox 98.2 F 50 L 16 150/70 98 05/05/19 14:45 05/05/19 14:45 05/05/19 14:45 05/05/19 14:45 05/05/19 14:45 ED Treatment Course - LABORATORY CBC & Chemistry Diagram: 05/05/19 13:00 05/05/19 13:00 - ADDITIONAL ORDERS Additional order review: Laboratory Results 05/05/19 05/05/19 05/05/19 13:00 13:00 13:00 PT with INR 12.8 INR 1.15 Sodium 143 Potassium 3.5 Chloride 106 Carbon Dioxide 28 Anion Gap 8 BUN 11.6 Creatinine 0.9 Est GFR (CKD-EPI)AfAm 70.98 Est GFR (CKD-EPI)NonAf 61.24 Random Glucose 84 Calcium 8.6 Total Bilirubin 0.7 AST 18 ALT 18 Alkaline Phosphatase 84 Creatine Kinase Cancelled Troponin I < 0.03 Total Protein 6.4 Albumin 3.7 Urine Color Urine Appearance Urine pH Urine Protein Urine Glucose (UA) Urine Ketones Urine Blood Urine Nitrite Urine Bilirubin Urine Urobilinogen Ur Leukocyte Esterase Urine RBC Urine WBC Ur Transition Epith Cell Urine Mucus 05/05/19 12:45 PT with INR INR Sodium Potassium Chloride Carbon Dioxide Anion Gap BUN Creatinine Est GFR (CKD-EPI)AfAm Est GFR (CKD-EPI)NonAf Random Glucose Calcium Total Bilirubin AST ALT Alkaline Phosphatase Creatine Kinase Troponin I Total Protein Albumin Urine Color Yellow Urine Appearance Clear Urine pH 7.0 Urine Protein Negative Urine Glucose (UA) Negative Urine Ketones Negative Urine Blood Trace-intact Urine Nitrite Negative Urine Bilirubin Negative Urine Urobilinogen 0.2 Ur Leukocyte Esterase Negative Urine RBC 2-5 Urine WBC 0-2 Ur Transition Epith Cell Few Urine Mucus None seen 05/05/19 13:00 RBC 5.22 H MCV 84.5 MCHC 32.8 RDW 13.3 MPV 7.5 Neutrophils % 69.9 Lymphocytes % 16.8 Monocytes % 8.2 Eosinophils % 2.6 Basophils % 2.5 H - RADIOLOGY Radiology Studies Ordered: Category Date Time Status HEAD CT WITHOUT CONTRAST [CT] Stat CT Scan 05/05/19 12:36 Completed CHEST X-RAY PORTABLE* [RAD] Stat Radiology 05/05/19 12:34 Taken Medical Decision Making - Medical Decision Making 05/05/19 16:29 78 yo female pmh asthma, PA, HLD, and diverticulosis presents to the ED for a repeat head CT. Pt seen yesterday after a mechanical fall while it was dark in the bathroom, head CT neg and pt DC with plan to repeat head CT today after a hyperdense focus was noted in the left parietal lobe. Pt lives alone at home, daughters present who admit concerns for pts ability to care for herself at home. Pt reported to not taking medications correctly, does not eat and have noted questionable behaviour such as attempting to plug in an outlet into water. Pt has had progressive decline in cognitive abilities, was referred to see Neurology however, pt cancelled appointment. Denies CP, palpitations or SOB prior to or after the fall. Denies DUPREE, LOC, N/V, neck pain, new confusion, changes in vision, F/C, abdominal pain or changes in bowel or bladder habits. Pt at baseline mentation AOX3 at this time however family note she seemed confused this am and had hallucinations of animals last night. Discharge - Discharge Information Problems reviewed: Yes Clinical Impression/Diagnosis: Failure to thrive Condition: Stable - Admission Yes - Follow up/Referral Referrals: Dick Garza MD [Primary Care Provider] - - Patient Discharge Instructions - Post Discharge Activity
--- NOTE | 2019-05-05 17:06 | HP ---
CHIEF COMPLAINT: Fall PCP: Dr. Cristina Garcia HISTORY OF PRESENT ILLNESS: 78 year-old female with a PMH significant for HLD, CAD s/p CT, gastritis, hypothyroidism, and depression. On 05/03 patient fell at 5:00am while walking to the bathroom. Patient reported she hurt her head, neck, right elbow, and buttocks but denied LOC. Her family helped her back to bed and she went to sleep. On 05/04 patient was in the bathtub and had an episode of weakness, right more than left, and had difficulty getting out of the tub. Family observed her to be disoriented throughout the day. They brought her to [facility] on 05/04. CT head was negative except for a possible tiny density v. artifact in left parietal lobe. Patient was discharged to home with followup with a neurologist. Today, 05/05, patient presented again to the ED at the urging of her PCP for repeat imaging. Repeat CT head confirmed that the equivocal focus seen yesterday is no longer appreciated and was probably artifact, although MRI is now recommended by radiologist. The patient was recently admitted to [facility] (04/30-05/02, and 3 weeks ago) for abdominal discomfort, loss of appetite, and vomiting. Reportedly, neither hospitalization resulted in positive findings. Recent Travel: No PAST MEDICAL HISTORY: Hyperlipidemia Coronary artery disease Mild gastritis 2/2 ASA use (09/2018) Hypothyroidism Depression PAST SURGICAL HISTORY: Cholecystectomy Family history: Mother- age 99 natural cause Father- age 68 Head Trauma 2 Brothers- Diabetes 1 Sister- Diabetes Social History: lives in ground level apartment in her daughter's house in [place]; does not need to climb stairs, her apartment is self-sufficient with bedroom and bath; patient's sister is visiting from [place] since last week and patient states, "She has taken over my life!" Has been calling patient's doctors and telling patient she does not take her medications correctly. (No family members present at the time of this admission). Smoking: quit 22 years ago, smoked for 50 years Alcohol: no Drugs: no Allergies ciprofloxacin HCl [From Cipro] Allergy (Severe, Verified 05/05/19 11:51) Rash midazolam HCl [From Versed] Adverse Reaction (Severe, Verified 05/05/19 11:51) Nausea FOR APPROXIMATELY ONE WEEK AFTER LADT CATARACT SURGERY HOME MEDICATIONS: Home Medications Medication Instructions Recorded Atorvastatin Ca [Lipitor] 10 mg PO HS 04/28/16 Levothyroxine [Synthroid -] 75 mcg PO DAILY 04/28/16 Sertraline HCl [Zoloft -] 12.5 mg PO DAILY 08/07/18 Cetirizine HCl [Zyrtec -] 10 mg PO DAILY #7 tablet 02/02/19 Meclizine HCl [Antivert] 1 tab PO TID PRN #20 tablet 05/04/19 Omeprazole Magnesium [Prilosec Otc] 40 mg PO DAILY 05/04/19 Ranitidine [Zantac -] 150 mg PO DAILY 05/05/19 REVIEW OF SYSTEMS CONSTITUTIONAL: Absent: fever, chills, diaphoresis, generalized weakness, malaise, loss of appetite, weight change HEENT: Absent: rhinorrhea, nasal congestion, throat pain, throat swelling, difficulty swallowing, mouth swelling, ear pain, eye pain, visual changes CARDIOVASCULAR: Absent: chest pain, syncope, palpitations, irregular heart rate, lightheadedness , peripheral edema RESPIRATORY: Absent: cough, shortness of breath, dyspnea with exertion, orthopnea, wheezing, stridor, hemoptysis GASTROINTESTINAL: +poor appetite but better than a few months ago; last vomiting episode 1 week ago, bilious Absent: abdominal pain, abdominal distension, nausea, vomiting, diarrhea, constipation, melena, hematochezia GENITOURINARY: Absent: dysuria, frequency, urgency, hesitancy, hematuria, flank pain, genital pain MUSCULOSKELETAL: Absent: myalgia, arthralgia, joint swelling, back pain, neck pain SKIN: Absent: rash, itching, pallor HEMATOLOGIC/IMMUNOLOGIC: Absent: easy bleeding, easy bruising, lymphadenopathy, frequent infections ENDOCRINE: Absent: unexplained weight gain, unexplained weight loss, heat intolerance, cold intolerance NEUROLOGIC: +dizziness upon standing Absent: headache, focal weakness or paresthesias, dizziness, unsteady gait, seizure, mental status changes, bladder or bowel incontinence PSYCHIATRIC: Absent: anxiety, depression, suicidal or homicidal ideation, hallucinations. PHYSICAL EXAMINATION Vital Signs - 24 hr 05/05/19 05/05/19 11:50 14:45 Temperature 98.2 F 98.2 F Pulse Rate 60 Pulse Rate [ 50 L Right Radial] Respiratory 18 16 Rate Blood Pressure 128/78 Blood Pressure 150/70 [Left Arm] O2 Sat by Pulse 98 98 Oximetry (%) GENERAL: Awake, alert, and fully oriented, in no acute distress. Very well-kept appearance. Toe nails neatly trimmed, patient does herself; hair stylishly cut and colored which patient does herself; no confusion, no inappropriate responses HEAD: Normal with no signs of trauma. EYES: Pupils equal, round and reactive to light, extraocular movements intact, sclera anicteric, conjunctiva clear. No lid lag. EARS, NOSE, THROAT: Ears normal, nares patent, oropharynx clear without exudates. Moist mucous membranes. Edentulous. NECK: Normal range of motion, supple without lymphadenopathy, JVD, or masses. LUNGS: Breath sounds equal, clear to auscultation bilaterally. No wheezes, and no crackles. No accessory muscle use. HEART: Regular rate and rhythm, normal S1 and S2 ABDOMEN: Soft, nontender, not distended, normoactive bowel sounds MUSCULOSKELETAL: Normal range of motion at all joints. No bony deformities or tenderness. No CVA tenderness. UPPER EXTREMITIES: 2+ pulses, warm, well-perfused. No cyanosis. No clubbing. No peripheral edema. LOWER EXTREMITIES: 2+ pulses, warm, well-perfused. No calf tenderness. No peripheral edema. NEUROLOGICAL: Cranial nerves II-XII intact. Normal speech. Normal gait. PSYCHIATRIC: Cooperative. Good eye contact. Appropriate mood and affect. SKIN: Warm, dry, normal turgor Laboratory Results - last 24 hr 05/05/19 05/05/19 05/05/19 12:45 13:00 13:00 WBC 7.0 RBC 5.22 H Hgb 14.5 Hct 44.1 MCV 84.5 MCH 27.8 MCHC 32.8 RDW 13.3 Plt Count 303 MPV 7.5 Absolute Neuts (auto) 4.8 Neutrophils % 69.9 Lymphocytes % 16.8 Monocytes % 8.2 Eosinophils % 2.6 Basophils % 2.5 H PT with INR INR Sodium 143 Potassium 3.5 Chloride 106 Carbon Dioxide 28 Anion Gap 8 BUN 11.6 Creatinine 0.9 Est GFR (CKD-EPI)AfAm 70.98 Est GFR (CKD-EPI)NonAf 61.24 Random Glucose 84 Calcium 8.6 Total Bilirubin 0.7 AST 18 ALT 18 Alkaline Phosphatase 84 Creatine Kinase Cancelled Troponin I Total Protein 6.4 Albumin 3.7 Urine Color Yellow Urine Appearance Clear Urine pH 7.0 Urine Protein Negative Urine Glucose (UA) Negative Urine Ketones Negative Urine Blood Trace-intact Urine Nitrite Negative Urine Bilirubin Negative Urine Urobilinogen 0.2 Ur Leukocyte Esterase Negative Urine RBC 2-5 Urine WBC 0-2 Ur Transition Epith Cell Few Urine Mucus None seen 05/05/19 05/05/19 13:00 13:00 WBC RBC Hgb Hct MCV MCH MCHC RDW Plt Count MPV Absolute Neuts (auto) Neutrophils % Lymphocytes % Monocytes % Eosinophils % Basophils % PT with INR 12.8 INR 1.15 Sodium Potassium Chloride Carbon Dioxide Anion Gap BUN Creatinine Est GFR (CKD-EPI)AfAm Est GFR (CKD-EPI)NonAf Random Glucose Calcium Total Bilirubin AST ALT Alkaline Phosphatase Creatine Kinase Troponin I < 0.03 Total Protein Albumin Urine Color Urine Appearance Urine pH Urine Protein Urine Glucose (UA) Urine Ketones Urine Blood Urine Nitrite Urine Bilirubin Urine Urobilinogen Ur Leukocyte Esterase Urine RBC Urine WBC Ur Transition Epith Cell Urine Mucus ASSESSMENT/PLAN: 78 year-old female with a PMH significant for HLD, CAD s/p CT, gastritis, hypothyroidism, and depression. Admitted following a fall at home on 05/03. s/p fall at home --CT head x 2 unremarkable --MRI brain ordered for am --may have had imaging done at [facility], will get records Coronary artery disease Hyperlipidemia --not on ASA; continue Lipitor Gastritis --protonix Hypothyroidism --check TSH --continue levothyroxine Depression --continue sertraline FEN Fluids: PO intake adequate Electrolytes: replete as indicated Nutrition: regular diet; nutrition consult DVT prophylaxis: subq heparin Physical therapy Dispo: continues to require inpatient care. Full code. Visit type - Emergency Visit Emergency Visit: Yes ED Registration Date: 05/05/19 Care time: The patient presented to the Emergency Department on the above date and was hospitalized for further evaluation of their emergent condition. - New Patient This patient is new to me today: Yes Date on this admission: 05/05/19 - Critical Care Critical Care patient: No
[2019-05-05] MEDS: HEPARIN NA (PORCINE) 5,000 UNITS/ML 1ML VIAL SQ SCH (21:56)
[2019-05-05] MEDS ORDERED: ATORVASTATIN CA 10 MG TABLET (FP) PO SCH (22:00)
[2019-05-06] MEDS ORDERED: LEVOTHYROXINE NA 75 MCG TABLET (FP) PO SCH (07:00)
[2019-05-06 07:53] LABS: BASO % 1.2 % (0-2.0); HEMATOCRIT 41.7 % (32.4-45.2); LYMPH % 19.6 % (8-40); MCH 28.7 pg (25.7-33.7); MCHC 33.6 g/dl (32.0-36.0); MEAN CELL VOLUME 85.5 fl (80-96); MEAN PLT VOLUME 7.4 fl (7.5-11.1); MONO % 8.2 % (3.8-10.2); PLATELET COUNT 279 K/MM3 (134-434); RBC 4.88 M/mm3 (3.60-5.2); RDW 13.4 % (11.6-15.6); WHITE BLOOD COUNT 5.9 K/mm3 (4.0-10.8)
[2019-05-06 08:01] LABS: ALBUMIN 3.6 g/dl (3.4-5.0); BILIRUBIN,TOTAL 0.8 mg/dl (0.2-1); CALCIUM 9.1 mg/dl (8.5-10); CREATININE 0.7 mg/dl (0.55-1.3); MAGNESIUM 2.1 mg/dL (1.8-2.4); POTASSIUM 3.7 mmol/L (3.5-5.1); TOT PROT 6.1 g/dl (6.4-8.2)
[2019-05-06] MEDS ORDERED: PANTOPRAZOLE 40 MG TABLET (FP) PO SCH (10:00)
[2019-05-06] MEDS ORDERED: LORATADINE 10 MG TABLET PO SCH (10:00)
[2019-05-06] MEDS ORDERED: SERTRALINE HCL 25 MG TABLET (FP) PO SCH (10:00)
[2019-05-06] MEDS: HEPARIN NA (PORCINE) 5,000 UNITS/ML 1ML VIAL SQ SCH (10:22)
[2019-05-06 12:08] VITALS: BMI 16.9
--- NOTE | 2019-05-06 12:47 | PN ---
Physical Exam: SUBJECTIVE: Patient seen and examined OBJECTIVE: Vital Signs Period Temp Pulse Resp BP Sys/Fine Pulse Ox Last 24 Hr 97.5 F-98.2 F 50-54 16-18 105-150/54-70 93-98 GENERAL: The patient is awake, alert, and fully oriented, in no acute distress. HEAD: Normal with no signs of trauma. EYES: PERRL, extraocular movements intact, sclera anicteric, conjunctiva clear. No ptosis. ENT: Ears normal, nares patent, oropharynx clear without exudates, moist mucous membranes. NECK: Trachea midline, full range of motion, supple. LUNGS: Breath sounds equal, clear to auscultation bilaterally, no wheezes, no crackles, no accessory muscle use. HEART: Regular rate and rhythm, S1, S2 without murmur, rub or gallop. ABDOMEN: Soft, nontender, nondistended, normoactive bowel sounds, no guarding, no rebound, no hepatosplenomegaly, no masses. EXTREMITIES: 2+ pulses, warm, well-perfused, no edema. NEUROLOGICAL: Cranial nerves II through XII grossly intact. Normal speech, gait not observed. PSYCH: Normal mood, normal affect. SKIN: Warm, dry, normal turgor, no rashes or lesions noted Laboratory Results - last 24 hr 05/05/19 05/05/19 05/05/19 12:45 13:00 13:00 WBC 7.0 RBC 5.22 H Hgb 14.5 Hct 44.1 MCV 84.5 MCH 27.8 MCHC 32.8 RDW 13.3 Plt Count 303 MPV 7.5 Absolute Neuts (auto) 4.8 Neutrophils % 69.9 Lymphocytes % 16.8 Monocytes % 8.2 Eosinophils % 2.6 Basophils % 2.5 H PT with INR INR Sodium 143 Potassium 3.5 Chloride 106 Carbon Dioxide 28 Anion Gap 8 BUN 11.6 Creatinine 0.9 Est GFR (CKD-EPI)AfAm 70.98 Est GFR (CKD-EPI)NonAf 61.24 Random Glucose 84 Hemoglobin A1c % Calcium 8.6 Phosphorus Magnesium Total Bilirubin 0.7 AST 18 ALT 18 Alkaline Phosphatase 84 Creatine Kinase Cancelled Troponin I Total Protein 6.4 Albumin 3.7 TSH Urine Color Yellow Urine Appearance Clear Urine pH 7.0 Urine Protein Negative Urine Glucose (UA) Negative Urine Ketones Negative Urine Blood Trace-intact Urine Nitrite Negative Urine Bilirubin Negative Urine Urobilinogen 0.2 Ur Leukocyte Esterase Negative Urine RBC 2-5 Urine WBC 0-2 Ur Transition Epith Cell Few Urine Mucus None seen 05/05/19 05/05/19 05/05/19 13:00 13:00 13:00 WBC RBC Hgb Hct MCV MCH MCHC RDW Plt Count MPV Absolute Neuts (auto) Neutrophils % Lymphocytes % Monocytes % Eosinophils % Basophils % PT with INR 12.8 INR 1.15 Sodium Potassium Chloride Carbon Dioxide Anion Gap BUN Creatinine Est GFR (CKD-EPI)AfAm Est GFR (CKD-EPI)NonAf Random Glucose Hemoglobin A1c % Calcium Phosphorus Magnesium Total Bilirubin AST ALT Alkaline Phosphatase Creatine Kinase 90 Troponin I < 0.03 Total Protein Albumin TSH Urine Color Urine Appearance Urine pH Urine Protein Urine Glucose (UA) Urine Ketones Urine Blood Urine Nitrite Urine Bilirubin Urine Urobilinogen Ur Leukocyte Esterase Urine RBC Urine WBC Ur Transition Epith Cell Urine Mucus 05/06/19 05/06/19 05/06/19 07:35 07:35 07:35 WBC 5.9 RBC 4.88 Hgb 14.0 Hct 41.7 MCV 85.5 MCH 28.7 MCHC 33.6 RDW 13.4 Plt Count 279 MPV 7.4 L Absolute Neuts (auto) 3.7 Neutrophils % 65.0 Lymphocytes % 19.6 Monocytes % 8.2 Eosinophils % 6.0 H Basophils % 1.2 PT with INR INR Sodium 142 Potassium 3.7 Chloride 106 Carbon Dioxide 27 Anion Gap 9 BUN 11.0 Creatinine 0.7 Est GFR (CKD-EPI)AfAm 96.18 Est GFR (CKD-EPI)NonAf 82.99 Random Glucose 99 Hemoglobin A1c % 5.6 Calcium 9.1 Phosphorus 4.0 Magnesium 2.1 Total Bilirubin 0.8 AST 19 ALT 13 Alkaline Phosphatase 65 Creatine Kinase Troponin I Total Protein 6.1 L Albumin 3.6 TSH 2.29 Urine Color Urine Appearance Urine pH Urine Protein Urine Glucose (UA) Urine Ketones Urine Blood Urine Nitrite Urine Bilirubin Urine Urobilinogen Ur Leukocyte Esterase Urine RBC Urine WBC Ur Transition Epith Cell Urine Mucus Active Medications Generic Name Dose Route Start Last Admin Trade Name Freq PRN Reason Stop Dose Admin Atorvastatin Calcium 10 mg 05/05/19 22:00 05/05/19 21:51 Lipitor - PO 10 mg HS TONI Administration Heparin Sodium (Porcine) 5,000 unit 05/05/19 22:00 10/18/19 10:22 Heparin - SQ 5,000 unit BID TONI Administration Levothyroxine Sodium 75 mcg 05/06/19 07:00 05/06/19 06:51 Synthroid - PO 75 mcg DAILY@0700 TONI Administration Loratadine 10 mg 05/06/19 10:00 05/06/19 10:23 Claritin - PO 10 mg DAILY TONI Administration Pantoprazole Sodium 40 mg 05/06/19 10:00 05/06/19 10:23 Protonix - PO 40 mg DAILY TONI Administration Sertraline HCl 12.5 mg 05/06/19 10:00 05/06/19 10:23 Zoloft - PO 12.5 mg DAILY TONI Administration Review of [facility] Records 04/05/19-04/07/19 Observation Recurring episodes of anorexia, decreased appetite, nausea and vomiting, 20 pound weight loss 04/05 CTAP: (1) 1.2cm irregular filling defect within second portion of duodenum suspicious for polypoid mass, recommend endoscopy; (2) 1.2cm dilatation of extrahepatic duct s/p cholecystectmy, MRCP? 04/05 MRCP: no evidence of choledocholilithiasis 04/06 EGD: (1) esophageal varices; (2) no duodenal pathology; pathology: unremarkable 04/07 US abd: unremarkable 04/29/19 ED Fluids, Zofran, sent home with outpatient followup with GI Dr. Aidan Bellamy 04/30/19-05/01/19 Observation 05/01 CTAP: no significant change from 04/05 studies 0 ASSESSMENT/PLAN:
[2019-05-06 14:10] VITALS: BP 101/57; PULSE 57; TEMP 98.5
--- NOTE | 2019-05-06 19:02 | DS ---
Physical Exam: SUBJECTIVE: Patient seen and examined OBJECTIVE: Vital Signs Period Temp Pulse Resp BP Sys/Fine Pulse Ox Last 24 Hr 97.9 F-98.5 F 52-57 16-18 101-118/54-59 94-97 PHYSICAL EXAM GENERAL: The patient is awake, alert, and fully oriented, in no acute distress. Thin. Mild clavicular prominence, absence of body fat LUNGS: Breath sounds equal, clear to auscultation bilaterally, no wheezes, no crackles, no accessory muscle use. HEART: Regular rate and rhythm, S1, S2 ABDOMEN: Soft, nontender, nondistended, normoactive bowel sounds EXTREMITIES: 2+ pulses, warm, well-perfused, no edema. NEUROLOGICAL: Cranial nerves II through XII grossly intact. Normal speech, gait not observed. PSYCH: Normal mood, normal affect. SKIN: Warm, dry, normal turgor LABS Laboratory Results - last 24 hr 05/05/19 05/06/19 05/06/19 13:00 07:35 07:35 WBC 5.9 RBC 4.88 Hgb 14.0 Hct 41.7 MCV 85.5 MCH 28.7 MCHC 33.6 RDW 13.4 Plt Count 279 MPV 7.4 L Absolute Neuts (auto) 3.7 Neutrophils % 65.0 Lymphocytes % 19.6 Monocytes % 8.2 Eosinophils % 6.0 H Basophils % 1.2 Sodium 142 Potassium 3.7 Chloride 106 Carbon Dioxide 27 Anion Gap 9 BUN 11.0 Creatinine 0.7 Est GFR (CKD-EPI)AfAm 96.18 Est GFR (CKD-EPI)NonAf 82.99 Random Glucose 99 Hemoglobin A1c % Calcium 9.1 Phosphorus 4.0 Magnesium 2.1 Total Bilirubin 0.8 AST 19 ALT 13 Alkaline Phosphatase 65 Creatine Kinase 90 Total Protein 6.1 L Albumin 3.6 TSH 2.29 05/06/19 07:35 WBC RBC Hgb Hct MCV MCH MCHC RDW Plt Count MPV Absolute Neuts (auto) Neutrophils % Lymphocytes % Monocytes % Eosinophils % Basophils % Sodium Potassium Chloride Carbon Dioxide Anion Gap BUN Creatinine Est GFR (CKD-EPI)AfAm Est GFR (CKD-EPI)NonAf Random Glucose Hemoglobin A1c % 5.6 Calcium Phosphorus Magnesium Total Bilirubin AST ALT Alkaline Phosphatase Creatine Kinase Total Protein Albumin TSH HOSPITAL COURSE: Date of Admission:05/05/19 Date of Discharge: 05/06/19 Pre hospital coufrse 78 year-old female with a PMH significant for HLD, CAD s/p [place], gastritis, hypothyroidism, and depression. On 05/03 patient fell at 5:00am while walking to the bathroom. Patient reported she hurt her head, neck, right elbow, and buttocks but denied LOC. Her family helped her back to bed and she went to sleep. On 05/04 patient was in the bathtub and had an episode of weakness, right more than left, and had difficulty getting out of the tub. Family observed her to be disoriented throughout the day. They brought her to [facility] on 05/04. CT head was negative except for a possible tiny density v. artifact in left parietal lobe. Patient was discharged to home with followup with a neurologist. Today, 05/05, patient presented again to the ED at the urging of her PCP for repeat imaging. Repeat CT head confirmed that the equivocal focus seen yesterday is no longer appreciated and was probably artifact, although MRI is now recommended by radiologist. Subsequent hospital course 78 year-old female with a PMH significant for HLD, CAD s/p UT, gastritis, hypothyroidism, and depression. Admitted following a fall at home on 05/03. s/p fall at home --CT head x 2 unremarkable --MRI brain unremarkable for acute pathology --patient at baseline functioning Coronary artery disease Hyperlipidemia --not on ASA; continued Lipitor Gastritis --ccontinued protonix Hypothyroidism --TSH wnl --continue levothyroxine Depression --continued sertraline Severe malnutrition --two recent hospitalizations at [facility] for decreased appetite, nausea and vomiting, 20 pound weight loss --[facility] records reviewed: * 04/05 CTAP: (1) 1.2cm irregular filling defect within second portion of duodenum suspicious for polypoid mass, recommend endoscopy; (2) 1.2cm dilatation of extrahepatic duct s/p cholecystectmy * 04/05 MRCP: no evidence of choledocholilithiasis * 04/06 EGD: (1) esophageal varices; (2) no duodenal pathology; pathology: unremarkable * 04/07 US abd: unremarkable * 05/01 CTAP: no significant change from 04/05 studies --on exam and per web site developer, moderate subq fat loss in orbital region, moderate muscle loss in clavicular bone region, weight loss >7.6% in 3 months, low caloric intake Minutes to complete discharge: 35 Discharge Summary Problems reviewed: Yes Reason For Visit: FAILURE TO THRIVE Current Active Problems Failure to thrive (Acute) Condition: Improved - Instructions Diet, Activity, Other Instructions: It is recommended you make an appointment to see a primary care provider as soon as possible to receive regular medical care. If you do not have a primary care provider, we can suggest Dr. Dick Garza who works in Dr. Freitas's old office. His contact information is enclosed. Referrals: Dick Garza MD [Primary Care Provider] - Disposition: HOME - Home Medications Comprehensive Discharge Medication List: Ambulatory Orders Atorvastatin Ca [Lipitor] 10 mg PO HS 04/28/16 Levothyroxine [Synthroid -] 75 mcg PO DAILY 04/28/16 Sertraline HCl [Zoloft -] 12.5 mg PO DAILY 08/07/18 Cetirizine HCl [Zyrtec -] 10 mg PO DAILY #7 tablet 02/02/19 Meclizine HCl [Antivert -] 1 tab PO TID PRN #20 tablet 05/04/19 Omeprazole Magnesium [Prilosec Otc] 40 mg PO DAILY 05/04/19 This patient is new to me today: No Emergency Visit: Yes ED Registration Date: 05/05/19 Care time: The patient presented to the Emergency Department on the above date and was hospitalized for further evaluation of their emergent condition. Critical Care patient: No - Discharge Referral Referred to [facility] No
== END 2019-05-06 19:22 | disposition home or self-care (01) | DRG 640 ==
LOC: FER 11:49 → SUPCPDRO 11:49 → FM/S 17:06
PROVIDERS: ADMIT Internal Medicine; ATTEND Nurse Practitioner Acute Care
DX: R62.7 Adult failure to thrive (principal); E43 Unspecified severe protein-calorie malnutrition; Z68.1 Body mass index [BMI] 19.9 or less, adult; E78.5 Hyperlipidemia, unspecified; I25.2 Old myocardial infarction; J45.909 Unspecified asthma, uncomplicated; K57.90 Diverticulosis of intestine, part unspecified, without perforation or abscess without bleeding; I25.10 Atherosclerotic heart disease of native coronary artery without angina pectoris; E03.9 Hypothyroidism, unspecified; K29.60 Other gastritis without bleeding; F32.9 Major depressive disorder, single episode, unspecified; W01.0XXA Fall on same level from slipping, tripping and stumbling without subsequent striking against object, initial encounter; Y93.89 Activity, other specified; Y92.091 Bathroom in other non-institutional residence as the place of occurrence of the external cause; Y99.8 Other external cause status
CPT/HCPCS: 36415; 70450-TC; 70551-TC; 71045-TC-FY; 80053; 81003; 81015; 82550; 83036; 83735; 84100; 84443; 84484; 85025; 85610; 87086; 93005; 97116-GP; 97161-GP; 99285-25; J1644

== ENCOUNTER 2020-05-08 14:54 | Emergency (ER) | payer OTHER ==
--- NOTE | 2020-05-08 15:00 | PDOC ---
History of Present Illness - General Chief Complaint: Injury Stated Complaint: TRIP AND FALL ABRASION TO RIGHT ANKLE AND ELBOW Time Seen by Provider: 05/08/20 14:59 - History of Present Illness Initial Comments: 05/08/20 15:12 HPI: This is a 79 y/o female with a PMH of HLD, CAD s/p [place], hypothyroid, depression and recently diagnosed dementia presenting to the ED after a fall. Pt reports that she was walking to the car with her daughter, she was going up concrete steps when her foot caught the side and she fell backwards falling on her right side. She is complaining of pain and swelling on R. side of head, abrasion on her right elbow, and pain in right ankle. Both patient and daughter report that there was no LOC. The patient did not get up after the fall, but waited for EMS. She denies any accompanying headache, lightheadedness, blurry vision, chest pain, or SOB. ROS: GENERAL/CONSTITUTIONAL: No fever/chills, diaphoresis, or weakness. HEENT: No change in vision. No blurry vision. CARDIOVASCULAR: No chest pain, palpitations RESPIRATORY: No shortness of breath, dyspnea with exertion GASTROINTESTINAL: No abdominal pain, nausea, vomiting MUSCULOSKELETAL: Admits to pain r. side head, right elbow, right ankle SKIN: Superficial abrasions to right ankle and r. ankle NEUROLOGIC: No headache, dizziness, focal weakness, loss of consciousness, or change in strength/sensation. HEMATOLOGIC/LYMPHATIC: No anemia, easy bleeding. Not on blood thinners. PMH: HLD, CAD s/p [place], hypothyroid, depression and recently diagnosed dementia PSx: Denied Social Hx: Denied etoh, tobacco, drug use Meds: See nurse note Allergies: See nurse note PE: GENERAL: Awake, alert, and fully oriented, in no acute distress. Patient is appropriately conversational, non-toxic in appearance. HEENT: Normocephalic. PERRLA, EOMI. Swelling R. parietal area of head NECK: Normal ROM and supple. Nontender to palpation CARDIOVASCULAR: Regular rate and rhythm, normal S1 and S2 PULMONARY: No respiratory distress. Breath sounds equal, clear to auscultation bilaterally. ABDOMEN: Soft, nontender, no guarding EXTREMITIES: Normal range of motion, no edema or erythema, no calf tenderness. Small superficial abrasion R. elbow, nontender to palpation. Tenderness to palpation R lateral foot. No bony tenderness r. radial head, distal radius, scaphoid BACK: No midline tenderness in cervical, thoracic, or lumbar spine. NEUROLOGICAL: Cranial nerves II through XII grossly intact. Normal speech. No focal neurological deficits. No facial droop. Strength and sensation intact in bilateral upper and lower extremities. SKIN: Warm, Dry, normal turgor, no rashes or lesions noted. Normal capillary refill. PSYCHIATRIC: Appropriate affect. Cooperative MDM: This is a 79 y/o female with a PMH of HLD, CAD s/p [place], hypothyroid, depression and recently diagnosed dementia presenting to the ED after a fall. - Mechanical fall pt states she tripped over shoes. Can recount events - No LOC per pt and daughter. Not on blood thinners - Small amount of swelling r side of head, tender to palpation - No midline cervical tenderness, no pain with movement - Point tenderness lateral aspect of patients r. foot w/ minor swelling - CT head and neck due to patients age - Xray r. foot due to bony tenderness 05/08/20 15:51 Xray R. foot: 3 views of the right foot have been submitted. There is loss of bone density with degenerative changes and bunion formation by the first MTP joint. There is calcaneal spurring. There is minimal swelling. An acute fracture or subluxation is not seen. There is no sign of blastic or lytic changes. If symptoms persist or there is decreased range of motion then further imaging and orthopedic consultation may be of help. Since 12/23/2017, there is no change of an adverse nature. CT CERVICAL SPINE: No fracture identified CT HEAD: No CT evidence of acute intracranial pathology - Patient reports that she still feels well - Daughter is with her to take her home - Patient is stable to d/c with follow-up and return precautions Past History - Medical History Allergies/Adverse Reactions: Allergies Allergy/AdvReac Type Severity Reaction Status Date / Time ciprofloxacin HCl Allergy Severe Rash Verified 05/08/20 14:57 [From Cipro] midazolam HCl [From Versed] AdvReac Severe Nausea Verified 05/08/20 14:57 Home Medications: Ambulatory Orders Atorvastatin Ca [Lipitor] 10 mg PO HS 04/28/16 Levothyroxine [Synthroid -] 75 mcg PO DAILY 04/28/16 Sertraline HCl [Zoloft -] 12.5 mg PO DAILY 08/07/18 Cetirizine HCl [Zyrtec -] 10 mg PO DAILY #7 tablet 02/02/19 Omeprazole Magnesium [Prilosec Otc] 40 mg PO DAILY 05/04/19 Anemia: No Asthma: Yes Cancer: No Cardiac Disorders: Yes ([place] 1995 "NO HEART DAMAGE") CVA: No COPD: Yes CHF: No Dementia: No Diabetes: No GI Disorders: Yes (GERD) Disorders: No HTN: No Hypercholesterolemia: Yes Kidney Stones: Yes Liver Disease: (LFT'S ELEVATED DUE TO CRESTOR (PT HOSPITALIZED 12/2011) CRESTOR STOPPED) Seizures: No Thyroid Disease: Yes (HYPOTHROIDISM) - Surgical History Abdominal Surgery: Yes Appendectomy: No Cardiac Surgery: Yes (ANGIOPLASTY 1997) Cholecystectomy: Yes () Lung Surgery: No Neurologic Surgery: No Orthopedic Surgery: No - Immunization History Td Vaccination: (UNKNOWN) - Psycho-Social/Smoking History Smoking Status: Yes Smoking History: Unknown if ever smoked Years of Tobacco Use: 50 Have you smoked in the past 12 months: No Number of Cigarettes Smoked Daily: 0 If you are a former smoker, when did you quit?: 22 YEARS Discharge - Discharge Information Problems reviewed: Yes Clinical Impression/Diagnosis: Fall Qualifiers: Encounter type: initial encounter Qualified Code(s): W19.XXXA - Unspecified fall, initial encounter Condition: Stable Disposition: HOME - Follow up/Referral Referrals: Susana Garcia [Primary Care Provider] - - Patient Discharge Instructions Patient Printed Discharge Instructions: How to Prevent Falls Additional Instructions: You came to the ED after a fall. We did a cat scan of your head and neck which were normal We also did an xray of your foot which was normal. We have found no evidence to indicate that your head injury was serious. However, new symptoms and unexpected complications can develop hours or even days after the injury. If any of the following signs develop, call your doctor or come back to the hospital. Please return to the ED with any new or worsening symptoms. Return if Inappropriate drowsiness or increasing difficulty in awakening patient, Nausea or vomiting, Convulsions, Weakness or loss of feeling in the arm or leg, Confusion or strange behavior - Post Discharge Activity
--- NOTE | 2020-05-08 15:01 | PDOC ---
Attending Attestation - Resident Resident Name: Kenisha Hermosillo - ED Attending Attestation I have performed the following: I have examined & evaluated the patient, The case was reviewed & discussed with the resident, I agree w/resident's findings & plan, Exceptions are as noted - HPI HPI: 79 yo F history dementia (recently diagnosed), hypothyroid, HL presents s/p witnessed mechanical fall. She was walking with her daughter, tripped on the toe of her shoe as she was going up steps. She fell onto her R side, striking the side of her head, her R elbow, and her R ankle. She has scrapes to the ankle and elbow, but states she does not have any pain. Denies headache, LOC, weakness, numbness. Not taking any blood thinners. - Physicial Exam PE: GENERAL: Awake, alert, and fully oriented, in no acute distress HEAD: +Small hematoma to the R parietal area. Nontender EYES: PERRLA, EOMI, sclera anicteric, conjunctiva clear ENT: Auricles normal inspection, hearing grossly normal, nares patent, oropharyn x clear without exudates. Moist mucosa NECK: Normal ROM, supple, no lymphadenopathy, JVD, or masses LUNGS: Breath sounds equal, clear to auscultation bilaterally. No wheezes, and no crackles HEART: Regular rate and rhythm, normal S1 and S2, no murmurs, rubs or gallops ABDOMEN: Soft, nontender, normoactive bowel sounds. No guarding, no rebound. No masses EXTREMITIES: All extremities with FROM. R ankle with small abrasion as noted below, FROM, no malleolar tenderness. +Small area of tenderness to proximal foot just inferior to the ankle joint, below the lateral malleolus. R elbow with abrasion, no bony tenderness. No tenderness to the radial head, distal radius, and no scaphoid tenderness. No pain on axial load. Remainder of extremities with normal range of motion, no edema. No clubbing or cyanosis. NEUROLOGICAL: Cranial nerves II through XII grossly intact. Normal speech. Motor and sensation intact SKIN: Warm, dry, normal turgor. +Abrasion to the R lateral ankle and to the R elbow. - Medical Decision Making Based on age and hematoma, will CTH and c-spine. Will obtain XR of the foot. Likely DC home. Will give tdap, as her last booster was in 2011 and did not include pertussis. Discharge - Discharge Information Problems reviewed: Yes Clinical Impression/Diagnosis: Fall Qualifiers: Encounter type: initial encounter Qualified Code(s): W19.XXXA - Unspecified fall, initial encounter Condition: Stable - Follow up/Referral Referrals: Susana Garcia [Primary Care Provider] - - Patient Discharge Instructions - Post Discharge Activity
--- OUTSIDE RECORDS SUMMARY | 2020-05-08 15:08 | XMS ---
:1940 Author Organization [facility] Name Relationship Address Phone RE Unavailable Unavailable Unavailable JUAN DANIEL GARCIA DAUGHTER [address] [place] [address] JUAN DANIEL GARCIA Child [address] [place] [address] Re-disclosure Warning The records that you are about to access may contain information from federally- assisted alcohol or drug abuse programs. If such information is present, then the following federally mandated warning applies: This information has been disclosed to you from records protected by federal confidentiality rules (42 CFR part 2). The federal rules prohibit you from making any further disclosure of this information unless further disclosure is expressly permitted by the written consent of the person to whom it pertains or as otherwise permitted by 42 CFR part 2. A general authorization for the release of medical or other information is NOT sufficient for this purpose. The Federal rules restrict any use of the information to criminally investigate or prosecute any alcohol or drug abuse patient.The records that you are about to access may contain highly sensitive health information, the redisclosure of which is protected by Article 27-F of the [facility] Public [facility] law. If you continue you may haveaccess to information: Regarding HIV / AIDS; Provided by facilities licensed or operated by the [facility] Office of Mental Health; or Provided by the [facility] Office for People With Developmental Disabilities. If such information is present, then the following [facility] mandated warning applies: This information has been disclosed to you from confidential records which are protected by state law. State law prohibits you from making any further disclosure of this information without the specific written consent of the person to whom it pertains, or as otherwise permitted by law. Any unauthorized further disclosure in violation of state law may result in a fine or skilled nursing sentence or both. A general authorization for the release of medical or other information is NOT sufficient authorization for further disclosure. Insurance Providers Payer name Policy type Policy ID Covered Covered republican's Policy P melinda / Coverage republican ID relationship to [employer] Inf ormation type gib[employer] BC [employer] HMO [id number] SP [id number] BLUE CROSS [id number] SP [id number] SENIOR PLAN 8 [place] MEDICARE [id number] SP [id number] BLUE CROSS [id number] SP [id number] SENIOR PLAN 8 EMPIRE BLUE [id number] CROSS BLUE 8 [place] [id number] PART B [id number] DOWNSTATE BLUE CROSS [id number] SP [id number] SENIOR PLAN 8 BLUE CROSS [id number] SP [id number] SENIOR PLAN 8 EMPIRE BCBS [id number] (PPO) 8 Results ID Date Data Source [id number] 10/15/2019 05:36:00 PM EDT [facility] Name Value Range Interpretation Description Data Sup porting Code Source(s) Document(s ) 2019 Novel [facility] Coronavirus RNA Interpretation Unspecified Specimen Qualitative RAFFI Probe Detection This lab was ordered by [facility]-[id number] and reported by [facility]. Procedure
[2020-05-08] MEDS ORDERED: DIPHTH,PERTUSS(ACELL),TET 0.5 ML DISP.SYRIN IM ONE ×2 (15:10→15:38)
[2020-05-08 15:13] VITALS: BP 140/68; PULSE 69; TEMP 97.7; BMI 18.8
== END 2020-05-08 16:59 | disposition home or self-care (01) ==
LOC: FER 14:54
PROC: 3E0234Z Introduction of Serum, Toxoid and Vaccine into Muscle, Percutaneous Approach (ICD-10-PCS; principal; 2020-05-08)
DX: S50.911A Unspecified superficial injury of right forearm, initial encounter (principal); S90.511A Abrasion, right ankle, initial encounter
CPT/HCPCS: 70450-TC; 72125-TC; 73630-TC-RT-FY; 90715; 99285-25

== ENCOUNTER 2020-12-04 17:47 | Emergency (ER) | payer OTHER ==
[2020-12-04] MEDS ORDERED: ACETAMINOPHEN 500 MG TABLET (FP) PO ONE (18:03)
[2020-12-04 18:06] VITALS: BP 119/76; PULSE 77; TEMP 98; BMI 24.9
[2020-12-04] MEDS ORDERED: ACETAMINOPHEN 325 MG TABLET (FP) ONE (18:45)
== END 2020-12-04 19:05 | disposition home or self-care (01) ==
LOC: FER 17:47
DX: S92.525A Nondisplaced fracture of middle phalanx of left lesser toe(s), initial encounter for closed fracture (principal); M79.675 Pain in left toe(s)
CPT/HCPCS: 73630-TC-LT; 99283-25

== ENCOUNTER 2020-12-07 13:30 | Emergency (ER) | payer OTHER ==
[2020-12-07 13:39] VITALS: BP 135/70; PULSE 65; TEMP 97.8; BMI 21.1
== END 2020-12-07 14:20 | disposition home or self-care (01) ==
LOC: FER 13:30
DX: S90.122A Contusion of left lesser toe(s) without damage to nail, initial encounter (principal)
CPT/HCPCS: 99281-25

== ENCOUNTER 2021-07-26 17:40 | Emergency (ER) | payer OTHER ==
[2021-07-26] MEDS ORDERED: SODIUM CHLORIDE 1,000 ML IV STA (18:28)
[2021-07-26 18:31] VITALS: BP 105/54; PULSE 73; TEMP 98.8; BMI 22.3
[2021-07-26 19:23] LABS: ALBUMIN 3.7 g/dl (3.4-5.0); BILIRUBIN,TOTAL 0.6 mg/dl (0.2-1); CALCIUM 9.3 mg/dl (8.5-10); CREATININE 0.8 mg/dl (0.55-1.3); TOT PROT 6.1 g/dl (6.4-8.2)
[2021-07-26 21:02] LABS: BASO % 0.5 % (0-2.0); EOS % 0.4 % (0-4.5); HEMATOCRIT 40.8 % (32.4-45.2); HEMOGLOBIN 13.8 GM/dL (10.7-15.3); LYMPH % 8.3 % (8-40); MCH 27.7 pg (25.7-33.7); MCHC 33.7 g/dl (32.0-36.0); MEAN CELL VOLUME 82.1 fl (80-96); MEAN PLT VOLUME 7.9 fl (7.5-11.1); MONO % 10.9 % (3.8-10.2); NEUT % 79.9 % (42.8-82.8); PLATELET COUNT 231 10^3/uL (134-434); RBC 4.97 M/mm3 (3.60-5.2); RDW 13.8 % (11.6-15.6); WHITE BLOOD COUNT 7.5 K/mm3 (4.0-10.0)
== END 2021-07-26 22:03 | disposition home or self-care (01) ==
LOC: FER 17:40
PROC: 3E0337Z Introduction of Electrolytic and Water Balance Substance into Peripheral Vein, Percutaneous Approach (ICD-10-PCS; principal; 2021-07-26)
DX: E86.0 Dehydration (principal)
CPT/HCPCS: 36415; 71045-TC-FY; 80053; 81003; 81015; 82550; 84443; 84484; 85025; 87086; 93005; 99284-25; C9803; U0003; U0005

== ENCOUNTER 2023-09-28 14:07 | Emergency (ER) | payer OTHER ==
[2023-09-28 15:21] VITALS: BP 133/87; PULSE 79; RESP 20; TEMP 98.3; BMI 22.8
[2023-09-28] MEDS ORDERED: ACETAMINOPHEN 325 MG TABLET (FP) ONE (15:23)
[2023-09-28] MEDS: ACETAMINOPHEN 325 MG TABLET (FP) PO ONE (15:32)
== END 2023-09-28 17:32 | disposition home or self-care (01) ==
LOC: FER 14:07
PROC: 2W3DX1Z Immobilization of Left Lower Arm using Splint (ICD-10-PCS; principal; 2023-09-28)
DX: S52.515A Nondisplaced fracture of left radial styloid process, initial encounter for closed fracture (principal); M79.642 Pain in left hand; W18.39XA Other fall on same level, initial encounter; Y92.009 Unspecified place in unspecified non-institutional (private) residence as the place of occurrence of the external cause
CPT/HCPCS: 73110-TC-LT-FY; 73130-TC-LT-FY; 99283-25

== ENCOUNTER 2023-10-06 11:37 | Emergency (ER) | payer OTHER ==
[2023-10-06 11:52] VITALS: BP 127/76; PULSE 74; RESP 20; TEMP 98; BMI 21.7
[2023-10-06] MEDS: SULFAMETHOXAZOLE/TRIMETHOPRIM 800MG/160MG D.S. TABLET PO ONE (13:20)
[2023-10-06] MEDS ORDERED: SULFAMETHOXAZOLE/TRIMETHOPRIM 800MG/160MG D.S. TABLET ONE (13:22)
== END 2023-10-06 13:45 | disposition home or self-care (01) ==
LOC: FER 11:37
DX: R35.0 Frequency of micturition (principal); N39.0 Urinary tract infection, site not specified
CPT/HCPCS: 81003; 81015; 87086; 87186; 99283-25

== ENCOUNTER 2024-03-01 20:57 | Emergency (ER) | payer OTHER ==
[2024-03-01 21:09] VITALS: BP 184/102; PULSE 76; RESP 16; TEMP 98.6; BMI 23.8
[2024-03-01] MEDS ORDERED: DIPHTH,PERTUSS(ACELL),TET 0.5 ML DISP.SYRIN IM ONE (21:57)
[2024-03-01] MEDS: DIPHTH,PERTUSS(ACELL),TET 0.5 ML DISP.SYRIN IM ONE (21:58)
== END 2024-03-01 22:56 | disposition home or self-care (01) ==
LOC: FER 20:57
PROC: 3E0234Z Introduction of Serum, Toxoid and Vaccine into Muscle, Percutaneous Approach (ICD-10-PCS; principal; 2024-03-01)
DX: S50.311A Abrasion of right elbow, initial encounter (principal); W18.39XA Other fall on same level, initial encounter; Z23 Encounter for immunization
CPT/HCPCS: 70450-TC; 73070-TC-RT-FY; 90471; 90715; 99284-25